=== PATIENT | male | born 1955 ===

== ENCOUNTER 2016-12-07 22:26 | Inpatient (IN) | payer OTHER ==
[2016-12-07] MEDS ORDERED: Labetalol 25mg/5ml Syringe ONE (22:42)
[2016-12-07] MEDS ORDERED: Albuterol-Ipratrop 3 mg / 0.5 (3 ml) UD INH STA (22:44)
--- NOTE | 2016-12-07 22:49 | C.PDOC ---
History Of Present Illness 61 year old male brought in by family presents to the ER with c/o SOB and that worsen over the 2 weeks. Pt notes 40 pounds in the last 2 months and is taking metFormin in the mornings only. Pt denies any nausea, vomiting, diarrhea, fever , chills, or any other complaints. Time Seen by Provider: 12/07/16 22:37 Chief Complaint (Nursing): Shortness Of Breath History Per: Patient History/Exam Limitations: no limitations Onset/Duration Of Symptoms: Days Current Symptoms Are (Timing): Still Present Severity: Mild Associated Symptoms: Other (Weight loss, 40 pounds). denies: Fever, Chills Past Medical History Reviewed: Historical Data, Nursing Documentation, Vital Signs Vital Signs: Last Vital Signs Temp 98.5 F 12/07/16 22:35 Pulse 130 H 12/07/16 22:35 Resp 40 H 12/07/16 23:05 BP 164/115 H 12/07/16 22:35 Pulse Ox 90 L 12/07/16 23:50 - Medical History PMH: HTN Family History: States: Unknown Family Hx - Social History Hx Alcohol Use: No Hx Substance Use: No - Immunization History Hx Tetanus Toxoid Vaccination: No Hx Influenza Vaccination: No Hx Pneumococcal Vaccination: No Review Of Systems Except As Marked, All Systems Reviewed And Found Negative. Constitutional: Positive for: Other (40# weight loss in 4 months). Negative for : Fever, Chills Respiratory: Positive for: Shortness of Breath Gastrointestinal: Negative for: Nausea, Vomiting, Diarrhea Physical Exam - Physical Exam Appears: Non-toxic, No Acute Distress Skin: Warm, Dry, Pale (pallid) Head: Atraumatic, Normacephalic Cardiovascular: JVD Respiratory: Decreased Breath Sounds (Bilaterally), No Rales, No Rhonchi, Wheezing (Upper lung area), Other (Mild SOB) Extremity: Other (2/4 pitting edema lower extremity) Neurological/Psych: Oriented x3, Normal Speech ED Course And Treatment - Laboratory Results Result Diagrams: 12/07/16 22:50 12/07/16 22:50 Lab Interpretation: Abnormal (+ Leukocytosis) ECG: Interpreted By Ar ECG Rhythm: Sinus Tachycardia ECG Interpretation: Abnormal Rate From EC O2 Sat by Pulse Oximetry: 90 Pulse Ox Interpretation: Abnormal - Radiology CXR: Interpreted by Me CXR Interpretation: Yes: Other (++CHF. + b/l effusions) Reevaluation Time: 23:45 Reassessment Condition: Improved - Physician Consult Information Outcome Of Conversation: 2330: d/w Hospitalist- Dr. Sethi- larissa to Tele Obs Critical Care Time - Critical Care Note Total Time (in mins): 90 Documented critical care: time excludes all time spent performing seperately billable procedures. Medical Decision Making Medical Decision Making: CHF and uncontrolled HTN/DM ? underlying PNA with Leukocytosis of 17K- pending abx per Hospitalists mild elev d-dimer pro related to infection and not PE- defer CTA/lovenox for more probable cause of SOB WAsting syndrome 40# weight loss in 6 months, ? related to poorly controlled DM or underlying CA Impression: 61 year old c/o SOB for 2 weeks Plan: -Labs -CXR -EKG -Albuterol -Lasix -IV Fluids -Trandate -Nebulizer treatment -Reassess and disposition Disposition Doctor Will See Patient In The: Hospital Counseled Patient/Family Regarding: Studies Performed, Diagnosis - Disposition Referrals: Non [facility] Provider, [Primary Care Provider] - Disposition: HOSPITALIZED Disposition Time: 23:46 Condition: FAIR - POA Present On Arrival: Poor Glycemic Control - Clinical Impression Clinical Impression: Chronic congestive heart failure, Diabetes - Scribe Statement The provider has reviewed the documentation as recorded by the Scribsatinder candelaria All medical record entries made by the Jbibsatinder were at my direction and personally dictated by me. I have reviewed the chart and agree that the record accurately reflects my personal performance of the history, physical exam, medical decision making, and the department course for this patient. I have also personally directed, reviewed, and agree with the discharge instructions and disposition.
[2016-12-07] MEDS ORDERED: Albuterol-Ipratrop 3 mg / 0.5 (3 ml) UD ONE (22:51)
[2016-12-07 22:59] LABS: BASO # 0.1 K/uL (0.0-0.2); BASO % 0.5 % (0.0-2.0); EOS % 0.1 % (0.0-4.0); HEMATOCRIT 44.9 % (35.0-51.0); LYMPH # 1.9 K/uL (1.0-4.3); LYMPH % 10.9 % (20.0-40.0); MEAN CELL VOLUME 89.3 fL (80.0-94.0); MEAN CORPUSCULAR HEMOGLOBIN 28.7 pg (27.0-31.0); MEAN CORPUSCULAR HGB CONC 32.1 g/dL (33.0-37.0); MEAN PLATELET VOLUME 10.5 fL (7.2-11.7); MONO # 1.2 K/uL (0.0-0.8); MONO % 6.8 % (0.0-10.0); WHITE BLOOD COUNT 17.1 K/uL (4.8-10.8)
[2016-12-07] MEDS ORDERED: (Novolin R) Insulin Human Regular 100 units/ml vial IV STA (23:05)
[2016-12-07 23:11] LABS: CHLORIDE 96 mmol/L (98-107)
[2016-12-07 23:12] LABS: POTASSIUM 3.5 mmol/L (3.6-5.2); SODIUM 134 mmol/L (132-148)
[2016-12-07 23:14] LABS: ALB/GLOB RATIO 1.1 (1.0-2.1); AST/SGOT 29 U/L (17-59); BILIRUBIN,TOTAL 1.1 mg/dL (0.2-1.3); CARBON DIOXIDE 20 mmol/L (22-30); GFR AFRICAN-AMERICAN > 60; TOTAL PROTEIN 6.9 g/dL (6.3-8.3)
[2016-12-07] MEDS ORDERED: (Novolin R) Insulin Human Regular 100 units/ml vial ONE (23:14)
[2016-12-07 23:15] LABS: ALKALINE PHOSPHATASE 78 U/L (38-126); ALT/SGPT 40 U/L (21-72); BLOOD UREA NITROGEN 17 mg/dL (9-20); CALCIUM 8.6 mg/dl (8.6-10.4); GLUCOSE,RANDOM 364 mg/dL (75-110)
[2016-12-07] MEDS ORDERED: cefTRIAXone IV 1 gm in Dextros 50 ML IV ONE (23:47)
[2016-12-07] MEDS ORDERED: Labetalol 25mg/5ml Syringe IV STA (23:48)
--- NOTE | 2016-12-08 00:09 | CP.PCM.HP ---
<Devin Huertas - Last Filed: 12/08/16 11:13> History of Present Illness - History of Present Illness History of Present Illness: CC: SOB + Cough x 2 weeks (worsening) HPI: 61 year old male with PMHx HTN, DM2, Diabetic coma 2005 - presents c/o SOB + productive Cough (white mucous) for the past 2 weeks. He admits to worsening SOB, especially while laying flat (feels like he's drowning) , requiring 2 pillows at night. Over the past 3 days, he reports associated LE swelling, stating that this never happened before. Patient states that prior to 2 weeks ago, his breathing was normal, and he could walk "for miles." He admits to increasing his fluid intact during this period due to increased thirst. Patient also reports an unintentional 40 pound weight loss in the last 2 months. Admits to weakness, diaphoresis x1 day, SOB, cough, nausea. Denies f/c, chest pain, palpitations, abdominal pain, d/c, urinary symptoms, hematochezia, hematemesis, sick contacts, or any additional complaints. Due to severity of condition, patient was transferred to the ICU. ED course: Solumedrol 125mg, Labetalol 20mg, Novolin R 10mg, Lasix 20, Duonebs, Ceftriaxone 1Gm IVPB. Patient reports feeling less SOB and less weak after diuresis. 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 PMD: unsure Present on Admission - Present on Admission Any Indicators Present on Admission: Yes History of Uncontrolled Diabetes: Yes Review of Systems - Constitutional Constitutional: Weakness. absent: Chills, Fever - EENT Eyes: absent: Blurred Vision, Change in Vision Ears: absent: Decreased Hearing, Ear Discharge, Ear Pain Nose/Mouth/Throat: absent: Nasal Congestion, Sore Throat - Cardiovascular Cardiovascular: Dyspnea, Edema, Leg Edema. absent: Chest Pain - Respiratory Respiratory: Cough, Dyspnea, Pain on Inspiration, Chest Congestion. absent: Hemoptysis - Gastrointestinal Gastrointestinal: Nausea. absent: Constipation, Diarrhea, Vomiting - Genitourinary Genitourinary: absent: Difficulty Urinating, Dysuria, Hematuria - Musculoskeletal Musculoskeletal: absent: Muscle Weakness, Numbness, Tingling - Integumentary Integumentary: absent: Alopecia, Bleeding Lesions, Change in Hair, Skin Pain - Neurological Neurological: Weakness. absent: Confusion, Dizziness, Numbness - Psychiatric Psychiatric: absent: Anhedonia, Anxiety, Depression - Endocrine Endocrine: absent: Change in Body Appearance, Fatigue, Palpitations - Hematologic/Lymphatic Hematologic: absent: Easy Bleeding, Easy Bruising Past Patient History - Infectious Disease Hx of Infectious Diseases: None - Past Social History Smoking Status: Former Smoker - CARDIAC Hx Hypertension: Yes - ENDOCRINE/METABOLIC Hx Diabetes Mellitus Type 2: Yes - PSYCHIATRIC Hx Substance Use: No - SURGICAL HISTORY Hx Surgeries: No - ANESTHESIA Hx Anesthesia: No Meds Allergies/Adverse Reactions: Allergies Allergy/AdvReac Type Severity Reaction Status Date / Time No Known Allergies Allergy Unverified 12/07/16 22:35 Physical Exam - Constitutional Appears: Non-toxic, No Acute Distress - Head Exam Head Exam: ATRAUMATIC, NORMAL INSPECTION - Eye Exam Eye Exam: EOMI, Normal appearance Pupil Exam: NORMAL ACCOMODATION - ENT Exam ENT Exam: Mucous Membranes Moist - Neck Exam Neck exam: Positive for: Normal Inspection. Negative for: Tenderness, Thyromegaly - Respiratory Exam Respiratory Exam: Decreased Breath Sounds, Rales, Respiratory Distress (when lying flat). absent: Wheezes - Cardiovascular Exam Cardiovascular Exam: Tachycardia, REGULAR RHYTHM, +S1, +S2. absent: JVD - GI/Abdominal Exam GI & Abdominal Exam: Normal Bowel Sounds, Soft. absent: Distended, Rebound, Tenderness Additional comments: +fluid on abdominal percussion - Extremities Exam Extremities exam: Positive for: pedal edema, pedal pulses present. Negative for : tenderness - Back Exam Back exam: NORMAL INSPECTION. absent: tenderness - Neurological Exam Neurological exam: Alert, CN II-XII Intact, Oriented x3 - Psychiatric Exam Psychiatric exam: Normal Affect, Normal Mood - Skin Skin Exam: Dry, Intact, Normal Color Results - Vital Signs Recent Vital Signs: Last Vital Signs Temp 98.5 F 12/07/16 22:35 Pulse 130 H 12/07/16 22:35 Resp 40 H 12/07/16 23:05 BP 164/115 H 12/07/16 22:35 Pulse Ox 90 L 12/07/16 23:50 - Labs Result Diagrams: 12/07/16 22:50 12/07/16 22:50 Labs: Laboratory Results - last 24 hr 12/07/16 12/07/16 12/07/16 22:50 22:55 23:00 WBC 17.1 H RBC 5.02 Hgb 14.4 Hct 44.9 MCV 89.3 MCH 28.7 MCHC 32.1 L RDW 14.0 Plt Count 296 MPV 10.5 Neut % (Auto) 81.7 H Lymph % (Auto) 10.9 L Montgomery % (Auto) 6.8 Eos % (Auto) 0.1 Baso % (Auto) 0.5 Neut # 14.0 H Lymph # 1.9 Montgomery # 1.2 H Eos # 0.0 Baso # 0.1 D-Dimer, Quantitative 415 H Sodium 134 Potassium 3.5 L Chloride 96 L Carbon Dioxide 20 L Anion Gap 22 H BUN 17 Creatinine 0.7 L Est GFR ( Amer) > 60 Est GFR (Non-Af Amer) > 60 POC Glucose (mg/dL) 430 H* Random Glucose 364 H Calcium 8.6 Total Bilirubin 1.1 AST 29 ALT 40 Alkaline Phosphatase 78 Troponin I 0.0730 NT-Pro-B Natriuret Pep 6650 H Total Protein 6.9 Albumin 3.6 Globulin 3.3 Albumin/Globulin Ratio 1.1 Influenza Typ A,B (EIA) Negative for flu a/b Assessment & Plan - Assessment and Plan (Free Text) Assessment: Respiratory failure/CHF/HTN - left sided CHF leading to R sided heart failure - Lasix 40mg IVP d Lisinopril 5mg PO d Lopressor 25mg PO BID f/u Cardiac enzymes f/u ECHO Pulmonary Congestion -due to Left sided heart failure. - Lasix 40mg IVP d - f/u CT angio chest/abd/pelv Lower extremity Edema -likely due to right sided heart failure Diabetes, uncontrolled A1C 10.1 ISS - Novolog ACHS accuchecks Leucocytosis -no fever f/u with rpt CBC in ED - Ceftriaxone 1Gm -f/u procalcitonin Electrolyte Imbalance -Hypokalemia, K3.5 -> monitor and replete as necessary Prophylaxis Hep 5k SC Q8 ASA 81mg PO d Pepcid 20mg PO d SCDs contraindicated - Date & Time Date: 12/08/16 Time: 00:15 <Pollo Sethi P - Last Filed: 12/19/16 20:17> Results - Vital Signs Recent Vital Signs: Last Vital Signs Temp 97.7 F 12/13/16 15:33 Pulse 83 12/13/16 15:33 Resp 20 12/13/16 15:33 BP 92/65 L 12/13/16 15:33 Pulse Ox 97 12/13/16 15:33 - Labs Result Diagrams: 12/13/16 08:02 12/13/16 08:02 Attending/Attestation - Attestation I have personally seen and examined this patient.: Yes I have fully participated in the care of the patient.: Yes I have reviewed all pertinent clinical information: Yes
[2016-12-08 00:37] LABS: RBC URINE 1 /hpf (0-3); URINE BILIRUBIN NEGATIVE (NEGATIVE); URINE BLOOD NEGATIVE (NEGATIVE); URINE COLOR Yellow (YELLOW); URINE GLUCOSE (UA) 3+ mg/dL (Normal); URINE KETONE TRACE mg/dL (NEGATIVE); URINE LEUKOCYTE ESTERASE NEG Leu/uL (Negative); URINE PROTEIN 2+ mg/dL (NEGATIVE); URINE UROBILINOGEN NORMAL mg/dL (0.2-1.0); WBC URINE 2 /hpf (0-5)
[2016-12-08] MEDS ORDERED: cefTRIAXone IV 1 gm in Dextros 50 ML IVPB ONE (00:47)
[2016-12-08 02:16] LABS: INR 1.5
[2016-12-08 02:29] LABS: THYROID STIMULATING HORMONE 1.87 mIU/L (0.46-4.68)
[2016-12-08] MEDS ORDERED: Iodixanol 320 MG/ML 100 ML BOTTLE IV ONE (02:39)
[2016-12-08 03:09] LABS: IRON 40 ug/dL (49-181)
[2016-12-08] MEDS ORDERED: Potassium Chloride 20 mEq ER Tab PO ONE (03:45)
[2016-12-08] MEDS ORDERED: Potassium Chloride 20 mEq ER Tab PO STA (03:46)
--- NOTE | 2016-12-08 04:24 | CP.PCM.CON ---
History of Present Illness - History of Present Illness History of Present Illness: 61 year old male withh/o HTN,DM (diabetic coma 2006) brought in by family presents to the ER with c/o SOB worsening over the past 2 weeks. Pt notes 40 pounds weight loss in the last 2 months Pt denies any chest ppain,nausea, vomiting, diarrhea, fever, chills.Noted leg swelling x 3 days. Worsening SOB, especially while laying flat , requiring 2 pillows at night. Patient states that prior to 2 weeks ago, his breathing was normal, and he could walk "for miles." ED course: Solumedrol 125mg, Labetalol 20mg, Novolin R 10mg, Lasix 20, Duonebs, Ceftriaxone 1Gm IVPB. Patient reports feeling less SOB and less weak after diuresis H/O DM and HTN not seen a physician for more than 5 yrs.Has been using mother in laws medication.according to the glucose in the 120's when checked at home Review of Systems - Review of Systems Systems not reviewed;Unavailable: Unstable Vital Signs, Respiratory Distress, Language Barrier - Constitutional Constitutional: Weight Loss. absent: Anorexia, Chills, Fever, Malaise, Night Sweats - EENT Eyes: absent: Change in Vision Ears: absent: Ear Pain, Dizziness Nose/Mouth/Throat: absent: Nasal Congestion - Cardiovascular Cardiovascular: Dyspnea on Exertion, Edema, Leg Edema, Paroxysmal Nocturnal Dyspnea. absent: Chest Pain, Chest Pain at Rest, Chest Pain with Activity - Respiratory Respiratory: Cough, Dyspnea, Excessive Mucous Production - Gastrointestinal Gastrointestinal: absent: Abdominal Pain, Change in Bowel Habits, Nausea, Vomiting - Genitourinary Genitourinary: Urinary Frequency - Neurological Neurological: absent: Abnormal Gait, Dizziness - Endocrine Endocrine: absent: Cold Intolorance, Heat Intolorance - Hematologic/Lymphatic Hematologic: absent: Easy Bleeding Past Patient History - Infectious Disease Hx of Infectious Diseases: None - Past Medical History & Family History Past Medical History?: Yes - Past Social History Smoking Status: Former Smoker Chewing Tobacco Use: No Cigar Use: No Occupation: maintenance work Alcohol: None Drugs: Denies Home Situation {Lives}: With Family - CARDIAC Hx Cardiac Disorders: Yes Hx Hypertension: Yes - PULMONARY Hx Respiratory Disorders: No - NEUROLOGICAL Hx Neurological Disorder: No - HEENT Hx HEENT Problems: Yes Other/Comment: glasses for reading - RENAL Hx Chronic Kidney Disease: No - ENDOCRINE/METABOLIC Hx Endocrine Disorders: Yes Hx Diabetes Mellitus Type 2: Yes - HEMATOLOGICAL/ONCOLOGICAL Hx Blood Disorders: No - INTEGUMENTARY Hx Dermatological Problems: No - MUSCULOSKELETAL/RHEUMATOLOGICAL Hx Musculoskeletal Disorders: No Hx Falls: No - GASTROINTESTINAL Hx Gastrointestinal Disorders: No - GENITOURINARY/GYNECOLOGICAL Hx Genitourinary Disorders: No - PSYCHIATRIC Hx Psychophysiologic Disorder: No - SURGICAL HISTORY Hx Surgeries: No - ANESTHESIA Hx Anesthesia: No Hx Anesthesia Reactions: No Hx Malignant Hyperthermia: No Has any member of the family had a problem w/ anesthesia?: No Meds Allergies/Adverse Reactions: Allergies Allergy/AdvReac Type Severity Reaction Status Date / Time No Known Allergies Allergy Unverified 12/07/16 22:35 - Medications Medications: Current Medications Aspirin (Aspirin Chewable) 81 mg PO DAILY [facility] Famotidine (Pepcid) 20 mg PO DAILY [facility] Furosemide (Lasix) 40 mg IVP DAILY [facility]1983 Heparin Sodium (Porcine) (Heparin) 5,000 units SC Q8 [facility], [facility]1983 Last Admin: 12/08/16 02:50 Dose: 5,000 units Insulin Aspart (Novolog) 0 unit SC ACHS [facility], [facility]1983 PRN Reason: Protocol Lisinopril (Zestril) 5 mg PO DAILY [facility] Metoprolol Tartrate (Lopressor) 25 mg PO BID [facility]1983 Physical Exam - Constitutional Appears: In Acute Distress, Chronically Ill - Head Exam Head Exam: ATRAUMATIC, NORMAL INSPECTION, NORMOCEPHALIC - Eye Exam Eye Exam: EOMI, Normal appearance, PERRL. absent: Conjunctival injection, Periorbital swelling Pupil Exam: NORMAL ACCOMODATION - ENT Exam ENT Exam: Mucous Membranes Moist, Normal Exam - Neck Exam Neck exam: Positive for: Full Rom, Normal Inspection. Negative for: Lymphadenopathy - Respiratory Exam Respiratory Exam: Accessory Muscle Use. absent: Rales Additional comments: decreased air entry both bases - Cardiovascular Exam Cardiovascular Exam: REGULAR RHYTHM. absent: JVD - GI/Abdominal Exam GI & Abdominal Exam: Normal Bowel Sounds, Soft. absent: Tenderness - Rectal Exam Rectal Exam: absent: Deferred - Extremities Exam Extremities exam: Positive for: pedal edema - Back Exam Back exam: NORMAL INSPECTION - Neurological Exam Neurological exam: Oriented x3 - Psychiatric Exam Psychiatric exam: Normal Affect - Skin Skin Exam: Normal Color Results - Vital Signs Recent Vital Signs: Last Vital Signs Temp 98.1 F 12/08/16 03:12 Pulse 111 H 03/25/17 03:14 Resp 35 H 12/08/16 03:14 BP 128/75 12/08/16 03:14 Pulse Ox 96 12/08/16 03:14 - Labs Result Diagrams: 12/07/16 22:50 12/07/16 22:50 Labs: Laboratory Results - last 24 hr 12/08/16 12/08/16 12/08/16 00:27 01:08 01:37 PT INR APTT POC Glucose (mg/dL) 181 H Hemoglobin A1c Iron 40 L TIBC 238 L % Saturation 17 L Vitamin B12 Free T4 TSH 3rd Generation Urine Color Yellow Urine Clarity Clear Urine pH 5.0 Ur Specific Prentice 1.012 Urine Protein 2+ H Urine Glucose (UA) 3+ H Urine Ketones Trace Urine Blood Negative Urine Nitrate Negative Urine Bilirubin Negative Urine Urobilinogen Normal Ur Leukocyte Esterase Neg Urine WBC (Auto) 2 Urine RBC (Auto) 1 Ur Squamous Epith Cells < 1 Urine Opiates Screen Negative Urine Methadone Screen Negative Ur Barbiturates Screen Negative Ur Phencyclidine Scrn Negative Ur Amphetamines Screen Negative U Benzodiazepines Scrn Negative U Oth Cocaine Metabols Negative U Cannabinoids Screen Negative 12/08/16 12/08/16 12/08/16 01:42 01:43 02:03 PT 16.7 H INR 1.5 APTT 34 POC Glucose (mg/dL) Hemoglobin A1c 10.1 H Iron TIBC % Saturation Vitamin B12 > 1000 H Free T4 TSH 3rd Generation 1.87 Urine Color Urine Clarity Urine pH Ur Specific Prentice Urine Protein Urine Glucose (UA) Urine Ketones Urine Blood Urine Nitrate Urine Bilirubin Urine Urobilinogen Ur Leukocyte Esterase Urine WBC (Auto) Urine RBC (Auto) Ur Squamous Epith Cells Urine Opiates Screen Urine Methadone Screen Ur Barbiturates Screen Ur Phencyclidine Scrn Ur Amphetamines Screen U Benzodiazepines Scrn U Oth Cocaine Metabols U Cannabinoids Screen 12/08/16 03:00 PT INR APTT POC Glucose (mg/dL) Hemoglobin A1c Iron TIBC % Saturation Vitamin B12 Free T4 1.57 TSH 3rd Generation Urine Color Urine Clarity Urine pH Ur Specific Prentice Urine Protein Urine Glucose (UA) Urine Ketones Urine Blood Urine Nitrate Urine Bilirubin Urine Urobilinogen Ur Leukocyte Esterase Urine WBC (Auto) Urine RBC (Auto) Ur Squamous Epith Cells Urine Opiates Screen Urine Methadone Screen Ur Barbiturates Screen Ur Phencyclidine Scrn Ur Amphetamines Screen U Benzodiazepines Scrn U Oth Cocaine Metabols U Cannabinoids Screen - EKG Data EKG Interpreted by: Myself Rate: Tachycardia (LAD,Q waves in anterolateral leads) - Imaging and Cardiology Chest x-ray Status: Image reviewed by me Assessment & Plan - Assessment and Plan (Free Text) Assessment: 1.Respiratory failure/CHF/HTN ELIZABETH inhibitors,diuretics,Beta blockers Cardiac enzymes ECHO 2.Uncontrolled DM-insulin coverage 3.leucocytosis-no fever f/u with rpt CBC received 1 dose of antibiotic in ER 4.Hypokalemia-potassium replaced
[2016-12-08 05:30] LABS: ABG ALLEN TEST POS; ARTERIAL BLOOD HGB O2 SAT 96.5 % (95.0-98.0); CARBOXYHEMOGLOBIN 1.8 % (0.5-1.5); DRAW SITE RR; HHB 0.7 % (0.0-5.0)
[2016-12-08] MEDS ORDERED: (Novolog) Insulin Aspart, Recombinant 100 u/ml 10 ml vial SC SCH ×2 (07:30→22:00)
--- NOTE | 2016-12-08 10:19 | CT ---
PROCEDURE: CT Angiography Chest, Abdomen and Pelvis with and without intravenous contrast HISTORY: anasarca, weight loss, sob COMPARISON: None. TECHNIQUE: Contiguous axial images of the chest, abdomen and pelvis were obtained in the phase of aortic enhancement. A noncontrast enhanced CT of the chest was also obtained to evaluate for possible intramural thrombus. Coronal and sagittal reformats were generated. IV dose administered: 100 mL Visipaque 320 Radiation dose: Total exam DLP = 698.95 mGy-cm. FINDINGS: CT ANGIOGRAPHY OF THE CHEST WITH & WITHOUT CONTRAST: AORTA (CHEST AND ABDOMEN): The thoracic and abdominal aorta are unremarkable, without aneurysm, dissection or rupture. No intramural thrombus identified in the thoracic aorta on the non-contrast ct of the chest. The celiac axis, superior mesenteric artery, inferior mesenteric artery and the renal arteries are widely patent. The pelvic arteries are unremarkable. LUNGS: Patchy alveolar opacities throughout both lungs common nonspecific. Mild bilateral lower lobe compressive atelectasis secondary to pleural effusions. MEDIASTINUM: Unremarkable. Normal caliber aorta and pulmonary arterial trunk. No aortic dissection. Cardiomegaly. No pericardial effusion. LYMPH NODES: Unremarkable. PLEURA: Moderate bilateral pleural effusion. BONES: Unremarkable. OTHER FINDINGS: None. CT ANGIOGRAPHY OF THE ABDOMEN AND PELVIS WITH CONTRAST: LIVER: Unremarkable. No gross lesion or ductal dilatation. GALLBLADDER AND BILE DUCTS: Unremarkable. PANCREAS: Unremarkable. No gross lesion or ductal dilatation. SPLEEN: Unremarkable. ADRENALS: Unremarkable. No mass. KIDNEYS AND URETERS: Unremarkable. No hydronephrosis. No solid mass. VASCULATURE: Unremarkable. No aortic aneurysm. STOMACH AND BOWEL: Sigmoid diverticulosis without evidence of diverticulitis. No bowel obstruction. APPENDIX: Normal appendix. PERITONEUM: Unremarkable. No free fluid. No free air. LYMPH NODES: Unremarkable. No enlarged lymph nodes. BLADDER: Unremarkable. REPRODUCTIVE: Normal prostate BONES: No acute fracture. OTHER FINDINGS: None. IMPRESSION: No evidence of thoracic or abdominal aortic aneurysm or dissection. Please note that there is no gross evidence of pulmonary embolism all the examination was not performed in a proper fashion [place] for evaluation of pulmonary embolism. Bilateral patchy alveolar opacities with moderate bilateral pleural effusion. Nonspecific but may reflect pulmonary edema. Cardiomegaly. Bilateral lower lobe compressive atelectasis. Preliminary interpretation of this examination was reported by Lalalama at 3:22 a.m. on 12/08/2016. There is concurrence of this report with the preliminary interpretation.
[2016-12-08] MEDS: (Novolog) Insulin Aspart, Recombinant 100 u/ml 10 ml vial SC SCH ×5 (12:43→22:00)
[2016-12-08 13:33] LABS: CHLORIDE 95 mmol/L (98-107); POTASSIUM 4.8 mmol/L (3.6-5.2); SODIUM 132 mmol/L (132-148)
[2016-12-08 13:35] LABS: BILIRUBIN,TOTAL 0.8 mg/dL (0.2-1.3); CARBON DIOXIDE 20 mmol/L (22-30); GFR AFRICAN-AMERICAN > 60
[2016-12-08 13:36] LABS: ALKALINE PHOSPHATASE 69 U/L (38-126); ALT/SGPT 50 U/L (21-72); AST/SGOT 44 U/L (17-59); BLOOD UREA NITROGEN 24 mg/dL (9-20); CALCIUM 8.6 mg/dl (8.6-10.4); MAGNESIUM 1.5 mg/dL (1.6-2.3); PHOSPHOROUS 5.2 mg/dL (2.5-4.5); TOTAL PROTEIN 6.5 g/dL (6.3-8.3)
[2016-12-08 13:38] LABS: GLUCOSE,RANDOM 487 mg/dL (75-110)
[2016-12-08] MEDS ORDERED: Insulin Human Regular 100 UNIT in Sodium Chloride 0.9% 99 ML IV SCH (13:45)
--- NOTE | 2016-12-08 14:25 | CP.CCUPN ---
CCU Subjective - Physician Review Events Since Last Encounter (Free Text): 12/08/16 14:23 clinically improved today, breathing normally, no complaints. CCU Objective - Vital Signs / Intake & Output Vital Signs (Last 4 hours): Vital Signs Pulse Resp BP Pulse Ox 12/08/16 14:14 103 H 31 H 117/91 H 98 12/08/16 14:00 102 H 32 H 99 12/08/16 13:13 99 H 37 H 116/83 96 12/08/16 13:02 100 H 37 H 122/84 96 12/08/16 13:00 102 H 35 H 97 12/08/16 12:13 104 H 41 H 122/84 97 12/08/16 12:00 104 H 34 H 98 12/08/16 11:13 127/92 H 12/08/16 11:09 107 H 30 H 98 12/08/16 11:00 112 H 31 H 99 Intake and Output (Last 8hrs): Intake & Output 12/07/16 12/08/16 12/08/16 22:59 06:59 14:59 Intake Total 0 650 Output Total 200 800 Balance -200 -150 Weight 137 lb Intake: Oral 0 650 Output: Urine 200 800 Urine, Voided 200 800 - Physical Exam Head: Positive for: Atraumatic, Normocephalic Pupils: Positive for: PERRL Extroacular Muscles: Positive for: EOMI Mouth: Positive for: Moist Mucous Membranes Nose (External): Positive for: Atraumatic Respiratory/Chest: Positive for: Rales - Medications Active Medications: Active Medications Generic Name Dose Route Start Last Admin Trade Name Freq PRN Reason Stop Dose Admin Aspirin 81 mg 12/08/16 10:00 12/08/16 09:41 Aspirin Chewable PO 81 mg DAILY DARLIN Administration Docusate Sodium 100 mg 12/08/16 11:15 12/08/16 12:41 Colace PO 100 mg BID DARLIN Administration Famotidine 20 mg 12/08/16 10:00 12/08/16 09:41 Pepcid PO 20 mg DAILY DARLIN Administration Furosemide 40 mg 12/08/16 22:00 Lasix IVP Q12 DARLIN Heparin Sodium (Porcine) 5,000 units 12/08/16 01:45 12/08/16 06:43 Heparin SC 5,000 units Q8 DARLIN Administration Insulin Human Regular 100 unit 100 mls @ 2 mls/hr 12/08/16 13:45 12/08/16 14:16 / Sodium Chloride IV 2 mls/hr .Q24H DARLIN Administration Protocol Insulin Aspart 0 unit 12/08/16 10:53 12/08/16 12:43 Novolog SC 12 unit ACHS DARLIN Administration Protocol Lisinopril 5 mg 12/08/16 10:00 12/08/16 09:48 Zestril PO 5 mg DAILY DARLIN Administration Metoprolol Tartrate 25 mg 12/08/16 10:00 12/08/16 09:39 Lopressor PO 25 mg BID DARLIN Administration - Patient Studies Lab Studies: Lab Studies 12/08/16 12/08/16 12/08/16 Range/Units 13:21 13:17 11:50 PT (9.7-12.2) SECONDS INR APTT (21-34) SECONDS Puncture Site pCO2 (35-45) mm/Hg pO2 (80-100) mm/Hg HCO3 (21-28) mmol/L ABG pH (7.35-7.45) ABG Total CO2 (22-28) mmol/L ABG O2 Saturation (95-98) % ABG Base Excess (-2.0-3.0) mmol/L ABG Hemoglobin (11.7-17.4) g/dL ABG Carboxyhemoglobin (0.5-1.5) % POC ABG HHb (Measured) (0.0-5.0) % ABG Methemoglobin (0.0-3.0) % Eevrt Test A-a O2 Difference mm/Hg Respiratory Index Hgb O2 Saturation (95.0-98.0) % FiO2 % Inspiratory BiPAP Expiratory BiPAP Sodium 132 (132-148) mmol/L Potassium 4.8 (3.6-5.2) mmol/L Chloride 95 L (98-107) mmol/L Carbon Dioxide 20 L (22-30) mmol/L Anion Gap 22 H (10-20) BUN 24 H (9-20) mg/dL Creatinine 0.8 (0.8-1.5) MG/DL Est GFR ( Amer) > 60 Est GFR (Non-Af Amer) > 60 POC Glucose (mg/dL) 416 H* 437 H* (65-110) mg/dL Random Glucose 487 H* D (75-110) mg/dL Hemoglobin A1c (4.2-6.5) % Calcium 8.6 (8.6-10.4) mg/dl Phosphorus 5.2 H (2.5-4.5) mg/dL Magnesium 1.5 L (1.6-2.3) mg/dL Iron (49-181) ug/dL TIBC (250-450) ug/dL % Saturation (20-55) Total Bilirubin 0.8 (0.2-1.3) mg/dL AST 44 (17-59) U/L ALT 50 (21-72) U/L Alkaline Phosphatase 69 (38-126) U/L Troponin I (0.00-0.120) ng/mL Total Protein 6.5 (6.3-8.3) g/dL Albumin 3.3 L (3.5-5.0) g/dL Globulin 3.2 (2.2-3.9) gm/dL Albumin/Globulin Ratio 1.0 (1.0-2.1) Vitamin B12 (239-931) pg/mL Free T4 (0.78-2.19) ng/dL TSH 3rd Generation (0.46-4.68) mIU/L Urine Color (YELLOW) Urine Clarity (Clear) Urine pH (5.0-8.0) Ur Specific [place] (1.003-1.030) Urine Protein (NEGATIVE) mg/dL Urine Glucose (UA) (Normal) mg/dL Urine Ketones (NEGATIVE) mg/dL Urine Blood (NEGATIVE) Urine Nitrate (NEGATIVE) Urine Bilirubin (NEGATIVE) Urine Urobilinogen (0.2-1.0) mg/dL Ur Leukocyte Esterase (Negative) Agustin/uL Urine WBC (Auto) (0-5) /hpf Urine RBC (Auto) (0-3) /hpf Ur Squamous Epith Cells (0-5) /hpf Urine Opiates Screen (NEGATIVE) Urine Methadone Screen (NEGATIVE) Ur Barbiturates Screen (NEGATIVE) Ur Phencyclidine Scrn (NEGATIVE) Ur Amphetamines Screen (NEGATIVE) U Benzodiazepines Scrn (NEGATIVE) U Oth Cocaine Metabols (NEGATIVE) U Cannabinoids Screen (NEGATIVE) 12/08/16 12/08/16 12/08/16 Range/Units 07:21 06:15 05:27 PT (9.7-12.2) SECONDS INR APTT (21-34) SECONDS Puncture Site Rr pCO2 31 L (35-45) mm/Hg pO2 122 H (80-100) mm/Hg HCO3 21.8 (21-28) mmol/L ABG pH 7.41 (7.35-7.45) ABG Total CO2 20.6 L (22-28) mmol/L ABG O2 Saturation 99.3 H (95-98) % ABG Base Excess -4.0 L (-2.0-3.0) mmol/L ABG Hemoglobin 13.5 (11.7-17.4) g/dL ABG Carboxyhemoglobin 1.8 H (0.5-1.5) % POC ABG HHb (Measured) 0.7 (0.0-5.0) % ABG Methemoglobin 1.0 (0.0-3.0) % Evert Test Pos A-a O2 Difference 124.0 mm/Hg Respiratory Index 1.0 Hgb O2 Saturation 96.5 (95.0-98.0) % FiO2 40.0 % Inspiratory BiPAP 12 Expiratory BiPAP 6 Sodium (132-148) mmol/L Potassium (3.6-5.2) mmol/L Chloride (98-107) mmol/L Carbon Dioxide (22-30) mmol/L Anion Gap (10-20) BUN (9-20) mg/dL Creatinine (0.8-1.5) MG/DL Est GFR ( Amer) Est GFR (Non-Af Amer) POC Glucose (mg/dL) 306 H (65-110) mg/dL Random Glucose (75-110) mg/dL Hemoglobin A1c (4.2-6.5) % Calcium (8.6-10.4) mg/dl Phosphorus (2.5-4.5) mg/dL Magnesium (1.6-2.3) mg/dL Iron (49-181) ug/dL TIBC (250-450) ug/dL % Saturation (20-55) Total Bilirubin (0.2-1.3) mg/dL AST (17-59) U/L ALT (21-72) U/L Alkaline Phosphatase (38-126) U/L Troponin I 0.0670 (0.00-0.120) ng/mL Total Protein (6.3-8.3) g/dL Albumin (3.5-5.0) g/dL Globulin (2.2-3.9) gm/dL Albumin/Globulin Ratio (1.0-2.1) Vitamin B12 (239-931) pg/mL Free T4 (0.78-2.19) ng/dL TSH 3rd Generation (0.46-4.68) mIU/L Urine Color (YELLOW) Urine Clarity (Clear) Urine pH (5.0-8.0) Ur Specific [place] (1.003-1.030) Urine Protein (NEGATIVE) mg/dL Urine Glucose (UA) (Normal) mg/dL Urine Ketones (NEGATIVE) mg/dL Urine Blood (NEGATIVE) Urine Nitrate (NEGATIVE) Urine Bilirubin (NEGATIVE) Urine Urobilinogen (0.2-1.0) mg/dL Ur Leukocyte Esterase (Negative) Agustin/uL Urine WBC (Auto) (0-5) /hpf Urine RBC (Auto) (0-3) /hpf Ur Squamous Epith Cells (0-5) /hpf Urine Opiates Screen (NEGATIVE) Urine Methadone Screen (NEGATIVE) Ur Barbiturates Screen (NEGATIVE) Ur Phencyclidine Scrn (NEGATIVE) Ur Amphetamines Screen (NEGATIVE) U Benzodiazepines Scrn (NEGATIVE) U Oth Cocaine Metabols (NEGATIVE) U Cannabinoids Screen (NEGATIVE) 12/08/16 12/08/16 12/08/16 Range/Units 03:00 02:03 01:43 PT 16.7 H (9.7-12.2) SECONDS INR 1.5 APTT 34 (21-34) SECONDS Puncture Site pCO2 (35-45) mm/Hg pO2 (80-100) mm/Hg HCO3 (21-28) mmol/L ABG pH (7.35-7.45) ABG Total CO2 (22-28) mmol/L ABG O2 Saturation (95-98) % ABG Base Excess (-2.0-3.0) mmol/L ABG Hemoglobin (11.7-17.4) g/dL ABG Carboxyhemoglobin (0.5-1.5) % POC ABG HHb (Measured) (0.0-5.0) % ABG Methemoglobin (0.0-3.0) % Evert Test A-a O2 Difference mm/Hg Respiratory Index Hgb O2 Saturation (95.0-98.0) % FiO2 % Inspiratory BiPAP Expiratory BiPAP Sodium (132-148) mmol/L Potassium (3.6-5.2) mmol/L Chloride (98-107) mmol/L Carbon Dioxide (22-30) mmol/L Anion Gap (10-20) BUN (9-20) mg/dL Creatinine (0.8-1.5) MG/DL Est GFR ( Amer) Est GFR (Non-Af Amer) POC Glucose (mg/dL) (65-110) mg/dL Random Glucose (75-110) mg/dL Hemoglobin A1c (4.2-6.5) % Calcium (8.6-10.4) mg/dl Phosphorus (2.5-4.5) mg/dL Magnesium (1.6-2.3) mg/dL Iron (49-181) ug/dL TIBC (250-450) ug/dL % Saturation (20-55) Total Bilirubin (0.2-1.3) mg/dL AST (17-59) U/L ALT (21-72) U/L Alkaline Phosphatase (38-126) U/L Troponin I (0.00-0.120) ng/mL Total Protein (6.3-8.3) g/dL Albumin (3.5-5.0) g/dL Globulin (2.2-3.9) gm/dL Albumin/Globulin Ratio (1.0-2.1) Vitamin B12 > 1000 H (239-931) pg/mL Free T4 1.57 (0.78-2.19) ng/dL TSH 3rd Generation 1.87 (0.46-4.68) mIU/L Urine Color (YELLOW) Urine Clarity (Clear) Urine pH (5.0-8.0) Ur Specific [place] (1.003-1.030) Urine Protein (NEGATIVE) mg/dL Urine Glucose (UA) (Normal) mg/dL Urine Ketones (NEGATIVE) mg/dL Urine Blood (NEGATIVE) Urine Nitrate (NEGATIVE) Urine Bilirubin (NEGATIVE) Urine Urobilinogen (0.2-1.0) mg/dL Ur Leukocyte Esterase (Negative) Agustin/uL Urine WBC (Auto) (0-5) /hpf Urine RBC (Auto) (0-3) /hpf Ur Squamous Epith Cells (0-5) /hpf Urine Opiates Screen (NEGATIVE) Urine Methadone Screen (NEGATIVE) Ur Barbiturates Screen (NEGATIVE) Ur Phencyclidine Scrn (NEGATIVE) Ur Amphetamines Screen (NEGATIVE) U Benzodiazepines Scrn (NEGATIVE) U Oth Cocaine Metabols (NEGATIVE) U Cannabinoids Screen (NEGATIVE) 12/08/16 12/08/16 12/08/16 Range/Units 01:42 01:37 01:08 PT (9.7-12.2) SECONDS INR APTT (21-34) SECONDS Puncture Site pCO2 (35-45) mm/Hg pO2 (80-100) mm/Hg HCO3 (21-28) mmol/L ABG pH (7.35-7.45) ABG Total CO2 (22-28) mmol/L ABG O2 Saturation (95-98) % ABG Base Excess (-2.0-3.0) mmol/L ABG Hemoglobin (11.7-17.4) g/dL ABG Carboxyhemoglobin (0.5-1.5) % POC ABG HHb (Measured) (0.0-5.0) % ABG Methemoglobin (0.0-3.0) % Evert Test A-a O2 Difference mm/Hg Respiratory Index Hgb O2 Saturation (95.0-98.0) % FiO2 % Inspiratory BiPAP Expiratory BiPAP Sodium (132-148) mmol/L Potassium (3.6-5.2) mmol/L Chloride (98-107) mmol/L Carbon Dioxide (22-30) mmol/L Anion Gap (10-20) BUN (9-20) mg/dL Creatinine (0.8-1.5) MG/DL Est GFR ( Amer) Est GFR (Non-Af Amer) POC Glucose (mg/dL) 181 H (65-110) mg/dL Random Glucose (75-110) mg/dL Hemoglobin A1c 10.1 H (4.2-6.5) % Calcium (8.6-10.4) mg/dl Phosphorus (2.5-4.5) mg/dL Magnesium (1.6-2.3) mg/dL Iron 40 L (49-181) ug/dL TIBC 238 L (250-450) ug/dL % Saturation 17 L (20-55) Total Bilirubin (0.2-1.3) mg/dL AST (17-59) U/L ALT (21-72) U/L Alkaline Phosphatase (38-126) U/L Troponin I (0.00-0.120) ng/mL Total Protein (6.3-8.3) g/dL Albumin (3.5-5.0) g/dL Globulin (2.2-3.9) gm/dL Albumin/Globulin Ratio (1.0-2.1) Vitamin B12 (239-931) pg/mL Free T4 (0.78-2.19) ng/dL TSH 3rd Generation (0.46-4.68) mIU/L Urine Color (YELLOW) Urine Clarity (Clear) Urine pH (5.0-8.0) Ur Specific [place] (1.003-1.030) Urine Protein (NEGATIVE) mg/dL Urine Glucose (UA) (Normal) mg/dL Urine Ketones (NEGATIVE) mg/dL Urine Blood (NEGATIVE) Urine Nitrate (NEGATIVE) Urine Bilirubin (NEGATIVE) Urine Urobilinogen (0.2-1.0) mg/dL Ur Leukocyte Esterase (Negative) Agustin/uL Urine WBC (Auto) (0-5) /hpf Urine RBC (Auto) (0-3) /hpf Ur Squamous Epith Cells (0-5) /hpf Urine Opiates Screen (NEGATIVE) Urine Methadone Screen (NEGATIVE) Ur Barbiturates Screen (NEGATIVE) Ur Phencyclidine Scrn (NEGATIVE) Ur Amphetamines Screen (NEGATIVE) U Benzodiazepines Scrn (NEGATIVE) U Oth Cocaine Metabols (NEGATIVE) U Cannabinoids Screen (NEGATIVE) 12/08/16 Range/Units 00:27 PT (9.7-12.2) SECONDS INR APTT (21-34) SECONDS Puncture Site pCO2 (35-45) mm/Hg pO2 (80-100) mm/Hg HCO3 (21-28) mmol/L ABG pH (7.35-7.45) ABG Total CO2 (22-28) mmol/L ABG O2 Saturation (95-98) % ABG Base Excess (-2.0-3.0) mmol/L ABG Hemoglobin (11.7-17.4) g/dL ABG Carboxyhemoglobin (0.5-1.5) % POC ABG HHb (Measured) (0.0-5.0) % ABG Methemoglobin (0.0-3.0) % Evert Test A-a O2 Difference mm/Hg Respiratory Index Hgb O2 Saturation (95.0-98.0) % FiO2 % Inspiratory BiPAP Expiratory BiPAP Sodium (132-148) mmol/L Potassium (3.6-5.2) mmol/L Chloride (98-107) mmol/L Carbon Dioxide (22-30) mmol/L Anion Gap (10-20) BUN (9-20) mg/dL Creatinine (0.8-1.5) MG/DL Est GFR ( Amer) Est GFR (Non-Af Amer) POC Glucose (mg/dL) (65-110) mg/dL Random Glucose (75-110) mg/dL Hemoglobin A1c (4.2-6.5) % Calcium (8.6-10.4) mg/dl Phosphorus (2.5-4.5) mg/dL Magnesium (1.6-2.3) mg/dL Iron (49-181) ug/dL TIBC (250-450) ug/dL % Saturation (20-55) Total Bilirubin (0.2-1.3) mg/dL AST (17-59) U/L ALT (21-72) U/L Alkaline Phosphatase (38-126) U/L Troponin I (0.00-0.120) ng/mL Total Protein (6.3-8.3) g/dL Albumin (3.5-5.0) g/dL Globulin (2.2-3.9) gm/dL Albumin/Globulin Ratio (1.0-2.1) Vitamin B12 (239-931) pg/mL Free T4 (0.78-2.19) ng/dL TSH 3rd Generation (0.46-4.68) mIU/L Urine Color Yellow (YELLOW) Urine Clarity Clear (Clear) Urine pH 5.0 (5.0-8.0) Ur Specific [place] 1.012 (1.003-1.030) Urine Protein 2+ H (NEGATIVE) mg/dL Urine Glucose (UA) 3+ H (Normal) mg/dL Urine Ketones Trace (NEGATIVE) mg/dL Urine Blood Negative (NEGATIVE) Urine Nitrate Negative (NEGATIVE) Urine Bilirubin Negative (NEGATIVE) Urine Urobilinogen Normal (0.2-1.0) mg/dL Ur Leukocyte Esterase Neg (Negative) Agustin/uL Urine WBC (Auto) 2 (0-5) /hpf Urine RBC (Auto) 1 (0-3) /hpf Ur Squamous Epith Cells < 1 (0-5) /hpf Urine Opiates Screen Negative (NEGATIVE) Urine Methadone Screen Negative (NEGATIVE) Ur Barbiturates Screen Negative (NEGATIVE) Ur Phencyclidine Scrn Negative (NEGATIVE) Ur Amphetamines Screen Negative (NEGATIVE) U Benzodiazepines Scrn Negative (NEGATIVE) U Oth Cocaine Metabols Negative (NEGATIVE) U Cannabinoids Screen Negative (NEGATIVE) Laboratory Results - last 24 hr 12/08/16 12/08/16 12/08/16 00:27 01:08 01:37 PT INR APTT Puncture Site pCO2 pO2 HCO3 ABG pH ABG Total CO2 ABG O2 Saturation ABG Base Excess ABG Hemoglobin ABG Carboxyhemoglobin POC ABG HHb (Measured) ABG Methemoglobin Evert Test A-a O2 Difference Respiratory Index Hgb O2 Saturation FiO2 Inspiratory BiPAP Expiratory BiPAP Sodium Potassium Chloride Carbon Dioxide Anion Gap BUN Creatinine Est GFR ( Amer) Est GFR (Non-Af Amer) POC Glucose (mg/dL) 181 H Random Glucose Hemoglobin A1c Calcium Phosphorus Magnesium Iron 40 L TIBC 238 L % Saturation 17 L Total Bilirubin AST ALT Alkaline Phosphatase Troponin I Total Protein Albumin Globulin Albumin/Globulin Ratio Vitamin B12 Free T4 TSH 3rd Generation Urine Color Yellow Urine Clarity Clear Urine pH 5.0 Ur Specific [place] 1.012 Urine Protein 2+ H Urine Glucose (UA) 3+ H Urine Ketones Trace Urine Blood Negative Urine Nitrate Negative Urine Bilirubin Negative Urine Urobilinogen Normal Ur Leukocyte Esterase Neg Urine WBC (Auto) 2 Urine RBC (Auto) 1 Ur Squamous Epith Cells < 1 Urine Opiates Screen Negative Urine Methadone Screen Negative Ur Barbiturates Screen Negative Ur Phencyclidine Scrn Negative Ur Amphetamines Screen Negative U Benzodiazepines Scrn Negative U Oth Cocaine Metabols Negative U Cannabinoids Screen Negative 12/08/16 12/08/16 12/08/16 01:42 01:43 02:03 PT 16.7 H INR 1.5 APTT 34 Puncture Site pCO2 pO2 HCO3 ABG pH ABG Total CO2 ABG O2 Saturation ABG Base Excess ABG Hemoglobin ABG Carboxyhemoglobin POC ABG HHb (Measured) ABG Methemoglobin Evert Test A-a O2 Difference Respiratory Index Hgb O2 Saturation FiO2 Inspiratory BiPAP Expiratory BiPAP Sodium Potassium Chloride Carbon Dioxide Anion Gap BUN Creatinine Est GFR ( Amer) Est GFR (Non-Af Amer) POC Glucose (mg/dL) Random Glucose Hemoglobin A1c 10.1 H Calcium Phosphorus Magnesium Iron TIBC % Saturation Total Bilirubin AST ALT Alkaline Phosphatase Troponin I Total Protein Albumin Globulin Albumin/Globulin Ratio Vitamin B12 > 1000 H Free T4 TSH 3rd Generation 1.87 Urine Color Urine Clarity Urine pH Ur Specific [place] Urine Protein Urine Glucose (UA) Urine Ketones Urine Blood Urine Nitrate Urine Bilirubin Urine Urobilinogen Ur Leukocyte Esterase Urine WBC (Auto) Urine RBC (Auto) Ur Squamous Epith Cells Urine Opiates Screen Urine Methadone Screen Ur Barbiturates Screen Ur Phencyclidine Scrn Ur Amphetamines Screen U Benzodiazepines Scrn U Oth Cocaine Metabols U Cannabinoids Screen 12/08/16 12/08/16 12/08/16 03:00 05:27 06:15 PT INR APTT Puncture Site Rr pCO2 31 L pO2 122 H HCO3 21.8 ABG pH 7.41 ABG Total CO2 20.6 L ABG O2 Saturation 99.3 H ABG Base Excess -4.0 L ABG Hemoglobin 13.5 ABG Carboxyhemoglobin 1.8 H POC ABG HHb (Measured) 0.7 ABG Methemoglobin 1.0 Evert Test Pos A-a O2 Difference 124.0 Respiratory Index 1.0 Hgb O2 Saturation 96.5 FiO2 40.0 Inspiratory BiPAP 12 Expiratory BiPAP 6 Sodium Potassium Chloride Carbon Dioxide Anion Gap BUN Creatinine Est GFR ( Amer) Est GFR (Non-Af Amer) POC Glucose (mg/dL) Random Glucose Hemoglobin A1c Calcium Phosphorus Magnesium Iron TIBC % Saturation Total Bilirubin AST ALT Alkaline Phosphatase Troponin I 0.0670 Total Protein Albumin Globulin Albumin/Globulin Ratio Vitamin B12 Free T4 1.57 TSH 3rd Generation Urine Color Urine Clarity Urine pH Ur Specific [place] Urine Protein Urine Glucose (UA) Urine Ketones Urine Blood Urine Nitrate Urine Bilirubin Urine Urobilinogen Ur Leukocyte Esterase Urine WBC (Auto) Urine RBC (Auto) Ur Squamous Epith Cells Urine Opiates Screen Urine Methadone Screen Ur Barbiturates Screen Ur Phencyclidine Scrn Ur Amphetamines Screen U Benzodiazepines Scrn U Oth Cocaine Metabols U Cannabinoids Screen 12/08/16 12/08/16 12/08/16 07:21 11:50 13:17 PT INR APTT Puncture Site pCO2 pO2 HCO3 ABG pH ABG Total CO2 ABG O2 Saturation ABG Base Excess ABG Hemoglobin ABG Carboxyhemoglobin POC ABG HHb (Measured) ABG Methemoglobin Evert Test A-a O2 Difference Respiratory Index Hgb O2 Saturation FiO2 Inspiratory BiPAP Expiratory BiPAP Sodium Potassium Chloride Carbon Dioxide Anion Gap BUN Creatinine Est GFR ( Amer) Est GFR (Non-Af Amer) POC Glucose (mg/dL) 306 H 437 H* 416 H* Random Glucose Hemoglobin A1c Calcium Phosphorus Magnesium Iron TIBC % Saturation Total Bilirubin AST ALT Alkaline Phosphatase Troponin I Total Protein Albumin Globulin Albumin/Globulin Ratio Vitamin B12 Free T4 TSH 3rd Generation Urine Color Urine Clarity Urine pH Ur Specific [place] Urine Protein Urine Glucose (UA) Urine Ketones Urine Blood Urine Nitrate Urine Bilirubin Urine Urobilinogen Ur Leukocyte Esterase Urine WBC (Auto) Urine RBC (Auto) Ur Squamous Epith Cells Urine Opiates Screen Urine Methadone Screen Ur Barbiturates Screen Ur Phencyclidine Scrn Ur Amphetamines Screen U Benzodiazepines Scrn U Oth Cocaine Metabols U Cannabinoids Screen 12/08/16 13:21 PT INR APTT Puncture Site pCO2 pO2 HCO3 ABG pH ABG Total CO2 ABG O2 Saturation ABG Base Excess ABG Hemoglobin ABG Carboxyhemoglobin POC ABG HHb (Measured) ABG Methemoglobin Evert Test A-a O2 Difference Respiratory Index Hgb O2 Saturation FiO2 Inspiratory BiPAP Expiratory BiPAP Sodium 132 Potassium 4.8 Chloride 95 L Carbon Dioxide 20 L Anion Gap 22 H BUN 24 H Creatinine 0.8 Est GFR ( Amer) > 60 Est GFR (Non-Af Amer) > 60 POC Glucose (mg/dL) Random Glucose 487 H* D Hemoglobin A1c Calcium 8.6 Phosphorus 5.2 H Magnesium 1.5 L Iron TIBC % Saturation Total Bilirubin 0.8 AST 44 ALT 50 Alkaline Phosphatase 69 Troponin I Total Protein 6.5 Albumin 3.3 L Globulin 3.2 Albumin/Globulin Ratio 1.0 Vitamin B12 Free T4 TSH 3rd Generation Urine Color Urine Clarity Urine pH Ur Specific [place] Urine Protein Urine Glucose (UA) Urine Ketones Urine Blood Urine Nitrate Urine Bilirubin Urine Urobilinogen Ur Leukocyte Esterase Urine WBC (Auto) Urine RBC (Auto) Ur Squamous Epith Cells Urine Opiates Screen Urine Methadone Screen Ur Barbiturates Screen Ur Phencyclidine Scrn Ur Amphetamines Screen U Benzodiazepines Scrn U Oth Cocaine Metabols U Cannabinoids Screen Fingerstick Blood Sugar Results: 487 Critical Care Progress Note - Nutrition Nutrition: Nutrition Category Date Time Status Heart Healthy Diet [DIET] Diets 12/08/16 Breakfast Active
--- NOTE | 2016-12-08 14:28 | RAD ---
PROCEDURE: CHEST RADIOGRAPH, 1 VIEW HISTORY: SOB COMPARISON: None available. FINDINGS: LUNGS: Bilateral perihilar infiltrate. PLEURA: Bilateral pleural effusion, small to moderate. CARDIOVASCULAR: Congestive change. OSSEOUS STRUCTURES: No significant abnormalities. VISUALIZED UPPER ABDOMEN: Normal. OTHER FINDINGS: None. IMPRESSION: Findings suggestive of acute pulmonary edema.
[2016-12-08] MEDS ORDERED: (Lantus) Insulin Glargine, Recombinant SC SCH (15:30)
[2016-12-08] MEDS: (Lantus) Insulin Glargine, Recombinant SC SCH ×2 (18:12→22:45)
[2016-12-08 21:27] LABS: CHLORIDE 99 mmol/L (98-107)
[2016-12-08 21:28] LABS: POTASSIUM 4.6 mmol/L (3.6-5.2); SODIUM 134 mmol/L (132-148)
[2016-12-08 21:30] LABS: GFR AFRICAN-AMERICAN > 60
[2016-12-08 21:31] LABS: BLOOD UREA NITROGEN 31 mg/dL (9-20); CALCIUM 8.7 mg/dl (8.6-10.4); CARBON DIOXIDE 21 mmol/L (22-30); GLUCOSE,RANDOM 242 mg/dL (75-110)
--- NOTE | 2016-12-08 21:31 | CP.PCM.CON ---
History of Present Illness - History of Present Illness History of Present Illness: History of Present Illness - History of Present Illness History of Present Illness: CC: Dyspnea HPI: 61 year old male with PMHx HTN, DM2, Diabetic coma 2005 - presents c/o SOB + productive Cough (white mucous) for the past 2 weeks. He admits to worsening SOB, especially while laying flat (feels like he's drowning) , requiring 2 pillows at night. Over the past 3 days, he reports associated LE swelling, stating that this never happened before. Patient states that prior to 2 weeks ago, his breathing was normal, and he could walk "for miles." He admits to increasing his fluid intact during this period due to increased thirst. Patient also reports an unintentional 40 pound weight loss in the last 2 months. Admits to weakness, diaphoresis x1 day, SOB, cough, nausea. Denies f/c, chest pain, palpitations, abdominal pain, d/c, urinary symptoms, hematochezia, hematemesis, sick contacts, or any additional complaints. ED course: Solumedrol 125mg, Labetalol 20mg, Novolin R 10mg, Lasix 20, Duonebs, Ceftriaxone 1Gm IVPB. Patient reports feeling less SOB and less weak after diuresis. 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 PMD: unsure Present on Admission - Present on Admission Any Indicators Present on Admission: Yes History of Uncontrolled Diabetes: Yes Review of Systems - Constitutional Constitutional: Weakness. absent: Chills, Fever - EENT Eyes: absent: Blurred Vision, Change in Vision Ears: absent: Decreased Hearing, Ear Discharge, Ear Pain Nose/Mouth/Throat: absent: Nasal Congestion, Sore Throat - Cardiovascular Cardiovascular: Dyspnea, Edema, Leg Edema. absent: Chest Pain - Respiratory Respiratory: Cough, Dyspnea, Pain on Inspiration, Chest Congestion. absent: Hemoptysis - Gastrointestinal Gastrointestinal: Nausea. absent: Constipation, Diarrhea, Vomiting - Genitourinary Genitourinary: absent: Difficulty Urinating, Dysuria, Hematuria - Musculoskeletal Musculoskeletal: absent: Muscle Weakness, Numbness, Tingling - Integumentary Integumentary: absent: Alopecia, Bleeding Lesions, Change in Hair, Skin Pain - Neurological Neurological: Weakness. absent: Confusion, Dizziness, Numbness - Psychiatric Psychiatric: absent: Anhedonia, Anxiety, Depression - Endocrine Endocrine: absent: Change in Body Appearance, Fatigue, Palpitations - Hematologic/Lymphatic Hematologic: absent: Easy Bleeding, Easy Bruising Physical Exam - Constitutional Appears: Non-toxic, No Acute Distress - Head Exam Head Exam: ATRAUMATIC, NORMAL INSPECTION - Eye Exam Eye Exam: EOMI, Normal appearance Pupil Exam: NORMAL ACCOMODATION - ENT Exam ENT Exam: Mucous Membranes Moist - Neck Exam Neck exam: Positive for: Normal Inspection. Negative for: Tenderness, Thyromegaly - Respiratory Exam Respiratory Exam: Decreased Breath Sounds, Rales, Respiratory Distress (when lying flat). absent: Wheezes - Cardiovascular Exam Cardiovascular Exam: Tachycardia, REGULAR RHYTHM, +S1, +S2. absent: JVD - GI/Abdominal Exam GI & Abdominal Exam: Normal Bowel Sounds, Soft. absent: Distended, Rebound, Tenderness Additional comments: +fluid on abdominal percussion - Extremities Exam Extremities exam: Positive for: pedal edema, pedal pulses present. Negative for : tenderness - Back Exam Back exam: NORMAL INSPECTION. absent: tenderness - Neurological Exam Neurological exam: Alert, CN II-XII Intact, Oriented x3 - Psychiatric Exam Psychiatric exam: Normal Affect, Normal Mood - Skin Skin Exam: Dry, Intact, Normal Color Past Patient History - Infectious Disease Hx of Infectious Diseases: None - Past Medical History & Family History Past Medical History?: Yes - Past Social History Smoking Status: Former Smoker - CARDIAC Hx Hypertension: Yes - PULMONARY Hx Respiratory Disorders: No - NEUROLOGICAL Hx Neurological Disorder: No - HEENT Hx HEENT Problems: Yes Other/Comment: glasses for reading - RENAL Hx Chronic Kidney Disease: No - ENDOCRINE/METABOLIC Hx Diabetes Mellitus Type 2: Yes - HEMATOLOGICAL/ONCOLOGICAL Hx Blood Disorders: No - INTEGUMENTARY Hx Dermatological Problems: No - MUSCULOSKELETAL/RHEUMATOLOGICAL Hx Musculoskeletal Disorders: No Hx Falls: No - GASTROINTESTINAL Hx Gastrointestinal Disorders: No - GENITOURINARY/GYNECOLOGICAL Hx Genitourinary Disorders: No - PSYCHIATRIC Hx Substance Use: No - SURGICAL HISTORY Hx Surgeries: No - ANESTHESIA Hx Anesthesia: No Meds Allergies/Adverse Reactions: Allergies Allergy/AdvReac Type Severity Reaction Status Date / Time No Known Allergies Allergy Unverified 12/07/16 22:35 - Medications Medications: Current Medications Aspirin (Aspirin Chewable) 81 mg PO DAILY [facility] Last Admin: 12/08/16 09:41 Dose: 81 mg Docusate Sodium (Colace) 100 mg PO BID [facility] Last Admin: 12/08/16 18:11 Dose: Not Given Famotidine (Pepcid) 20 mg PO DAILY [facility] Last Admin: 12/08/16 09:41 Dose: 20 mg Furosemide (Lasix) 40 mg IVP Q12 [facility] Heparin Sodium (Porcine) (Heparin) 5,000 units SC Q8 [facility] Last Admin: 12/08/16 14:25 Dose: 5,000 units Magnesium Sulfate/Dextrose (Magnesium Sulfate 1 Gm/100 Ml D5w) 100 mls @ 300 mls/hr IVPB Q30M [facility] Stop: 12/08/16 21:49 Last Admin: 12/08/16 21:20 Dose: 300 mls/hr Insulin Aspart (Novolog) 0 unit SC ACHS [facility] PRN Reason: Protocol Insulin Glargine (Lantus) 8 unit SC HS [facility] Last Admin: 12/08/16 18:12 Dose: 8 units Lisinopril (Zestril) 5 mg PO DAILY [facility] Last Admin: 12/08/16 09:48 Dose: 5 mg Metoprolol Tartrate (Lopressor) 25 mg PO BID [facility] Last Admin: 12/08/16 18:12 Dose: 25 mg Results - Vital Signs Recent Vital Signs: Last Vital Signs Temp 98.7 F 12/08/16 12:00 Pulse 103 H 12/08/16 18:00 Resp 23 12/08/16 18:00 BP 113/73 12/08/16 18:12 Pulse Ox 98 12/08/16 18:00 - Labs Result Diagrams: 12/07/16 22:50 12/08/16 13:21 Labs: Laboratory Results - last 24 hr 12/08/16 12/08/16 12/08/16 00:27 01:08 01:37 PT INR APTT Puncture Site pCO2 pO2 HCO3 ABG pH ABG Total CO2 ABG O2 Saturation ABG Base Excess ABG Hemoglobin ABG Carboxyhemoglobin POC ABG HHb (Measured) ABG Methemoglobin Evert Test A-a O2 Difference Respiratory Index Hgb O2 Saturation FiO2 Inspiratory BiPAP Expiratory BiPAP Sodium Potassium Chloride Carbon Dioxide Anion Gap BUN Creatinine Est GFR ( Amer) Est GFR (Non-Af Amer) POC Glucose (mg/dL) 181 H Random Glucose Hemoglobin A1c Calcium Phosphorus Magnesium Iron 40 L TIBC 238 L % Saturation 17 L Total Bilirubin AST ALT Alkaline Phosphatase Troponin I Total Protein Albumin Globulin Albumin/Globulin Ratio Vitamin B12 Procalcitonin Free T4 TSH 3rd Generation Urine Color Yellow Urine Clarity Clear Urine pH 5.0 Ur Specific [place] 1.012 Urine Protein 2+ H Urine Glucose (UA) 3+ H Urine Ketones Trace Urine Blood Negative Urine Nitrate Negative Urine Bilirubin Negative Urine Urobilinogen Normal Ur Leukocyte Esterase Neg Urine WBC (Auto) 2 Urine RBC (Auto) 1 Ur Squamous Epith Cells < 1 Urine Opiates Screen Negative Urine Methadone Screen Negative Ur Barbiturates Screen Negative Ur Phencyclidine Scrn Negative Ur Amphetamines Screen Negative U Benzodiazepines Scrn Negative U Oth Cocaine Metabols Negative U Cannabinoids Screen Negative 12/08/16 12/08/16 12/08/16 01:42 01:43 02:03 PT 16.7 H INR 1.5 APTT 34 Puncture Site pCO2 pO2 HCO3 ABG pH ABG Total CO2 ABG O2 Saturation ABG Base Excess ABG Hemoglobin ABG Carboxyhemoglobin POC ABG HHb (Measured) ABG Methemoglobin Evert Test A-a O2 Difference Respiratory Index Hgb O2 Saturation FiO2 Inspiratory BiPAP Expiratory BiPAP Sodium Potassium Chloride Carbon Dioxide Anion Gap BUN Creatinine Est GFR ( Amer) Est GFR (Non-Af Amer) POC Glucose (mg/dL) Random Glucose Hemoglobin A1c 10.1 H Calcium Phosphorus Magnesium Iron TIBC % Saturation Total Bilirubin AST ALT Alkaline Phosphatase Troponin I Total Protein Albumin Globulin Albumin/Globulin Ratio Vitamin B12 > 1000 H Procalcitonin Free T4 TSH 3rd Generation 1.87 Urine Color Urine Clarity Urine pH Ur Specific [place] Urine Protein Urine Glucose (UA) Urine Ketones Urine Blood Urine Nitrate Urine Bilirubin Urine Urobilinogen Ur Leukocyte Esterase Urine WBC (Auto) Urine RBC (Auto) Ur Squamous Epith Cells Urine Opiates Screen Urine Methadone Screen Ur Barbiturates Screen Ur Phencyclidine Scrn Ur Amphetamines Screen U Benzodiazepines Scrn U Oth Cocaine Metabols U Cannabinoids Screen 12/08/16 12/08/16 12/08/16 03:00 05:27 06:15 PT INR APTT Puncture Site Rr pCO2 31 L pO2 122 H HCO3 21.8 ABG pH 7.41 ABG Total CO2 20.6 L ABG O2 Saturation 99.3 H ABG Base Excess -4.0 L ABG Hemoglobin 13.5 ABG Carboxyhemoglobin 1.8 H POC ABG HHb (Measured) 0.7 ABG Methemoglobin 1.0 Evert Test Pos A-a O2 Difference 124.0 Respiratory Index 1.0 Hgb O2 Saturation 96.5 FiO2 40.0 Inspiratory BiPAP 12 Expiratory BiPAP 6 Sodium Potassium Chloride Carbon Dioxide Anion Gap BUN Creatinine Est GFR ( Amer) Est GFR (Non-Af Amer) POC Glucose (mg/dL) Random Glucose Hemoglobin A1c Calcium Phosphorus Magnesium Iron TIBC % Saturation Total Bilirubin AST ALT Alkaline Phosphatase Troponin I 0.0670 Total Protein Albumin Globulin Albumin/Globulin Ratio Vitamin B12 Procalcitonin 0.26 Free T4 1.57 TSH 3rd Generation Urine Color Urine Clarity Urine pH Ur Specific [place] Urine Protein Urine Glucose (UA) Urine Ketones Urine Blood Urine Nitrate Urine Bilirubin Urine Urobilinogen Ur Leukocyte Esterase Urine WBC (Auto) Urine RBC (Auto) Ur Squamous Epith Cells Urine Opiates Screen Urine Methadone Screen Ur Barbiturates Screen Ur Phencyclidine Scrn Ur Amphetamines Screen U Benzodiazepines Scrn U Oth Cocaine Metabols U Cannabinoids Screen 12/08/16 12/08/16 12/08/16 07:21 11:50 13:17 PT INR APTT Puncture Site pCO2 pO2 HCO3 ABG pH ABG Total CO2 ABG O2 Saturation ABG Base Excess ABG Hemoglobin ABG Carboxyhemoglobin POC ABG HHb (Measured) ABG Methemoglobin Evert Test A-a O2 Difference Respiratory Index Hgb O2 Saturation FiO2 Inspiratory BiPAP Expiratory BiPAP Sodium Potassium Chloride Carbon Dioxide Anion Gap BUN Creatinine Est GFR ( Amer) Est GFR (Non-Af Amer) POC Glucose (mg/dL) 306 H 437 H* 416 H* Random Glucose Hemoglobin A1c Calcium Phosphorus Magnesium Iron TIBC % Saturation Total Bilirubin AST ALT Alkaline Phosphatase Troponin I Total Protein Albumin Globulin Albumin/Globulin Ratio Vitamin B12 Procalcitonin Free T4 TSH 3rd Generation Urine Color Urine Clarity Urine pH Ur Specific [place] Urine Protein Urine Glucose (UA) Urine Ketones Urine Blood Urine Nitrate Urine Bilirubin Urine Urobilinogen Ur Leukocyte Esterase Urine WBC (Auto) Urine RBC (Auto) Ur Squamous Epith Cells Urine Opiates Screen Urine Methadone Screen Ur Barbiturates Screen Ur Phencyclidine Scrn Ur Amphetamines Screen U Benzodiazepines Scrn U Oth Cocaine Metabols U Cannabinoids Screen 12/08/16 12/08/16 12/08/16 13:21 15:03 16:00 PT INR APTT Puncture Site pCO2 pO2 HCO3 ABG pH ABG Total CO2 ABG O2 Saturation ABG Base Excess ABG Hemoglobin ABG Carboxyhemoglobin POC ABG HHb (Measured) ABG Methemoglobin Evert Test A-a O2 Difference Respiratory Index Hgb O2 Saturation FiO2 Inspiratory BiPAP Expiratory BiPAP Sodium 132 Potassium 4.8 Chloride 95 L Carbon Dioxide 20 L Anion Gap 22 H BUN 24 H Creatinine 0.8 Est GFR ( Amer) > 60 Est GFR (Non-Af Amer) > 60 POC Glucose (mg/dL) 345 H 314 H Random Glucose 487 H* D Hemoglobin A1c Calcium 8.6 Phosphorus 5.2 H Magnesium 1.5 L Iron TIBC % Saturation Total Bilirubin 0.8 AST 44 ALT 50 Alkaline Phosphatase 69 Troponin I Total Protein 6.5 Albumin 3.3 L Globulin 3.2 Albumin/Globulin Ratio 1.0 Vitamin B12 Procalcitonin Free T4 TSH 3rd Generation Urine Color Urine Clarity Urine pH Ur Specific [place] Urine Protein Urine Glucose (UA) Urine Ketones Urine Blood Urine Nitrate Urine Bilirubin Urine Urobilinogen Ur Leukocyte Esterase Urine WBC (Auto) Urine RBC (Auto) Ur Squamous Epith Cells Urine Opiates Screen Urine Methadone Screen Ur Barbiturates Screen Ur Phencyclidine Scrn Ur Amphetamines Screen U Benzodiazepines Scrn U Oth Cocaine Metabols U Cannabinoids Screen 12/08/16 12/08/16 12/08/16 16:59 17:53 19:27 PT INR APTT Puncture Site pCO2 pO2 HCO3 ABG pH ABG Total CO2 ABG O2 Saturation ABG Base Excess ABG Hemoglobin ABG Carboxyhemoglobin POC ABG HHb (Measured) ABG Methemoglobin Evert Test A-a O2 Difference Respiratory Index Hgb O2 Saturation FiO2 Inspiratory BiPAP Expiratory BiPAP Sodium Potassium Chloride Carbon Dioxide Anion Gap BUN Creatinine Est GFR ( Amer) Est GFR (Non-Af Amer) POC Glucose (mg/dL) 209 H 124 H 197 H Random Glucose Hemoglobin A1c Calcium Phosphorus Magnesium Iron TIBC % Saturation Total Bilirubin AST ALT Alkaline Phosphatase Troponin I Total Protein Albumin Globulin Albumin/Globulin Ratio Vitamin B12 Procalcitonin Free T4 TSH 3rd Generation Urine Color Urine Clarity Urine pH Ur Specific [place] Urine Protein Urine Glucose (UA) Urine Ketones Urine Blood Urine Nitrate Urine Bilirubin Urine Urobilinogen Ur Leukocyte Esterase Urine WBC (Auto) Urine RBC (Auto) Ur Squamous Epith Cells Urine Opiates Screen Urine Methadone Screen Ur Barbiturates Screen Ur Phencyclidine Scrn Ur Amphetamines Screen U Benzodiazepines Scrn U Oth Cocaine Metabols U Cannabinoids Screen Assessment & Plan - Assessment and Plan (Free Text) Assessment: Respiratory failure/CHF/HTN Systolic CHF acute Lasix 40mg IVP d Lisinopril 5mg PO d Lopressor 25mg PO BID EF around 20% Consult Dr. [place] for Cardiomyopathy Pulmonary Congestion -due to Left sided heart failure. - Lasix 40mg IVP d - f/u CT angio chest/abd/pelv Lower extremity Edema -likely due to right sided heart failure Diabetes, uncontrolled A1C 10.1 ISS - Novolog ACHS accuchecks Leucocytosis -no fever f/u with rpt CBC in ED - Ceftriaxone 1Gm -f/u procalcitonin Prophylaxis Hep 5k SC Q8 ASA 81mg PO d Pepcid 20mg PO d SCDs contraindicated
[2016-12-09 06:27] LABS: BASO % 0.3 % (0.0-2.0); EOS % 0.1 % (0.0-4.0); HEMATOCRIT 39.8 % (35.0-51.0); LYMPH # 1.7 K/uL (1.0-4.3); LYMPH % 9.6 % (20.0-40.0); MEAN CELL VOLUME 88.3 fL (80.0-94.0); MEAN CORPUSCULAR HEMOGLOBIN 29.5 pg (27.0-31.0); MEAN CORPUSCULAR HGB CONC 33.5 g/dL (33.0-37.0); MEAN PLATELET VOLUME 10.9 fL (7.2-11.7); MONO # 1.6 K/uL (0.0-0.8); MONO % 8.8 % (0.0-10.0); PLATELET COUNT 262 K/uL (130-400); RED CELL DISTRIBUTION WIDTH 13.7 % (11.5-14.5); WHITE BLOOD COUNT 17.8 K/uL (4.8-10.8)
[2016-12-09 06:38] LABS: CHLORIDE 101 mmol/L (98-107); POTASSIUM 3.9 mmol/L (3.6-5.2); SODIUM 136 mmol/L (132-148)
[2016-12-09 06:40] LABS: BILIRUBIN,TOTAL 0.6 mg/dL (0.2-1.3); CARBON DIOXIDE 23 mmol/L (22-30); GFR AFRICAN-AMERICAN > 60
[2016-12-09 06:41] LABS: ALB/GLOB RATIO 0.8 (1.0-2.1); ALKALINE PHOSPHATASE 74 U/L (38-126); ALT/SGPT 56 U/L (21-72); AST/SGOT 30 U/L (17-59); BLOOD UREA NITROGEN 29 mg/dL (9-20); CALCIUM 8.7 mg/dl (8.6-10.4); GLUCOSE,RANDOM 247 mg/dL (75-110); MAGNESIUM 1.9 mg/dL (1.6-2.3); PHOSPHOROUS 4.1 mg/dL (2.5-4.5); TOTAL PROTEIN 6.5 g/dL (6.3-8.3)
[2016-12-09] MEDS: (Novolog) Insulin Aspart, Recombinant 100 u/ml 10 ml vial SC SCH ×4 (09:02→22:22)
--- NOTE | 2016-12-09 09:11 | CP.PCM.PN ---
Subjective - Date & Time of Evaluation Date of Evaluation: 12/08/16 Time of Evaluation: 22:00 - Subjective Subjective: Patient's breathing improved; Objective - Vital Signs/Intake and Output Vital Signs (last 24 hours): Temp Pulse Resp BP Pulse Ox 97.8 F 109 H 20 133/92 H 96 12/09/16 08:00 12/09/16 08:00 12/09/16 08:00 12/09/16 08:00 12/09/16 08:00 Intake and Output: 12/09/16 12/09/16 06:59 18:59 Intake Total 680 Output Total 1700 Balance -1020 - Medications Medications: Current Medications Aspirin (Aspirin Chewable) 81 mg PO DAILY [facility] Last Admin: 12/08/16 09:41 Dose: 81 mg Docusate Sodium (Colace) 100 mg PO BID [facility] Last Admin: 12/08/16 18:11 Dose: Not Given Famotidine (Pepcid) 20 mg PO DAILY [facility] Last Admin: 12/08/16 09:41 Dose: 20 mg Furosemide (Lasix) 40 mg IVP Q12 [facility] Last Admin: 12/08/16 22:45 Dose: 40 mg Heparin Sodium (Porcine) (Heparin) 5,000 units SC Q8 [facility] Last Admin: 12/09/16 05:25 Dose: 5,000 units Insulin Aspart (Novolog) 0 unit SC ACHS [facility] PRN Reason: Protocol Last Admin: 12/09/16 09:02 Dose: 6 unit Insulin Glargine (Lantus) 8 unit SC HS [facility] Last Admin: 12/08/16 22:45 Dose: 8 units Lisinopril (Zestril) 5 mg PO DAILY [facility] Last Admin: 12/08/16 09:48 Dose: 5 mg Metoprolol Tartrate (Lopressor) 25 mg PO BID [facility] Last Admin: 12/08/16 18:12 Dose: 25 mg - Labs Labs: 12/09/16 06:18 12/09/16 06:18 PT 16.7 SECONDS (9.7-12.2) H 12/08/16 02:03 INR 1.5 12/08/16 02:03 APTT 34 SECONDS (21-34) 12/08/16 02:03 - Constitutional Appears: Non-toxic, No Acute Distress - Head Exam Head Exam: NORMAL INSPECTION - Eye Exam Eye Exam: Normal appearance - ENT Exam ENT Exam: Mucous Membranes Moist - Neck Exam Neck Exam: Normal Inspection - Respiratory Exam Respiratory Exam: Clear to Ausculation Bilateral, NORMAL BREATHING PATTERN - Cardiovascular Exam Cardiovascular Exam: REGULAR RHYTHM, +S1, +S2 - GI/Abdominal Exam GI & Abdominal Exam: Soft. absent: Distended - Neurological Exam Neurological Exam: Alert, Awake - Skin Skin Exam: Warm. absent: Cyanosis Assessment and Plan (1) Diabetes Assessment & Plan: Uncontrolled; started on insulin drip this afternoon; Status: Acute (2) Heart failure, systolic, with acute decompensation Assessment & Plan: Dilated cardiomyopathy with EF 20%; on IV lasix 40 mg q12h; symptomatically improved; will get cardiology consult for life vest, eventual ICD placement; Status: Acute (3) Anemia Assessment & Plan: Iron deficient; start PO iron; Status: Acute (4) Leukocytosis Assessment & Plan: Unclear etiology; procalcitonin level sent to look for evidence of bacterial infection; IV steroids given in ED will confound any improvement; Status: Acute
[2016-12-09 09:18] LABS: NEUTROPHIL 79 % (50-75); REACTIVE LYMPHOCYTES 2 % (0-0); TOTAL CELLS COUNTED 100
[2016-12-09 09:24] LABS: LARGE PLATELETS PRESENT
--- NOTE | 2016-12-09 10:59 | RAD ---
HISTORY: chf COMPARISON: 12/07/2016 FINDINGS: LUNGS: No active pulmonary disease. PLEURA: Small bilateral pleural effusion, left greater than right. CARDIOVASCULAR: Mild congestive change. OSSEOUS STRUCTURES: No significant abnormalities. VISUALIZED UPPER ABDOMEN: Normal. OTHER FINDINGS: None. IMPRESSION: Bilateral small pleural effusion, left greater than right. Mild congestive change.
--- NOTE | 2016-12-09 15:04 | CP.PCM.PN ---
Subjective - Date & Time of Evaluation Date of Evaluation: 12/09/16 Time of Evaluation: 14:20 - Subjective Subjective: Patient reports breathing improved; Reports shortness of breath since past 1 week; otherwise, was previously asymptomatic, able to climb several flights of stairs regularly at work; chest pain has been going on since past 1 month, described as a feeling of something "tearing his chest open", lasting about half an hour, radiating to his jaw, neck and upper back; denies having had leg swelling; Objective - Vital Signs/Intake and Output Vital Signs (last 24 hours): Temp Pulse Resp BP Pulse Ox 97.8 F 109 H 20 114/79 96 12/09/16 08:00 12/09/16 08:00 12/09/16 08:00 12/09/16 09:55 12/09/16 08:00 Intake and Output: 12/09/16 12/09/16 06:59 18:59 Intake Total 680 Output Total 1700 Balance -1020 - Medications Medications: Current Medications Aspirin (Aspirin Chewable) 81 mg PO DAILY [facility] Last Admin: 12/09/16 09:52 Dose: 81 mg Docusate Sodium (Colace) 100 mg PO BID [facility] Last Admin: 12/09/16 09:53 Dose: 100 mg Famotidine (Pepcid) 20 mg PO DAILY [facility] Last Admin: 12/09/16 09:53 Dose: 20 mg Furosemide (Lasix) 40 mg IVP Q12 [facility] Last Admin: 12/09/16 09:55 Dose: 40 mg Heparin Sodium (Porcine) (Heparin) 5,000 units SC Q8 [facility] Last Admin: 12/09/16 14:31 Dose: 5,000 units Insulin Aspart (Novolog) 0 unit SC ACHS [facility] PRN Reason: Protocol Last Admin: 12/09/16 12:12 Dose: 8 unit Insulin Glargine (Lantus) 8 unit SC HS [facility] Last Admin: 12/08/16 22:45 Dose: 8 units Lisinopril (Zestril) 5 mg PO DAILY [facility] Last Admin: 12/09/16 09:52 Dose: 5 mg Metoprolol Tartrate (Lopressor) 25 mg PO BID [facility] Last Admin: 12/09/16 09:54 Dose: 25 mg - Labs Labs: 12/09/16 06:18 12/09/16 06:18 PT 16.7 SECONDS (9.7-12.2) H 12/08/16 02:03 INR 1.5 12/08/16 02:03 APTT 34 SECONDS (21-34) 12/08/16 02:03 - Constitutional Appears: Well, No Acute Distress - Head Exam Head Exam: NORMAL INSPECTION - Eye Exam Eye Exam: Normal appearance. absent: Scleral icterus - ENT Exam ENT Exam: Mucous Membranes Moist - Neck Exam Neck Exam: Normal Inspection - Respiratory Exam Additional comments: mild bilateral basal rhales; mildly tachypneic; - Cardiovascular Exam Cardiovascular Exam: Irregular Rhythm, +S1, +S2 - GI/Abdominal Exam GI & Abdominal Exam: Soft. absent: Distended, Tenderness - Extremities Exam Additional comments: Mild bilateral lower leg edema - Neurological Exam Neurological Exam: Alert, Awake - Psychiatric Exam Psychiatric exam: Normal Affect, Normal Mood - Skin Skin Exam: Warm. absent: Cyanosis Assessment and Plan (1) Diabetes Assessment & Plan: Better controlled after starting lantus 8 u last night; A1C 10.1 despite being on metformin 500 mg bid and glipizide 10 mg daily; gives history of adequately controlled fasting blood sugar; will restart glipizide at 5 mg today; continue to hold metformin for now (in case cath being planned); Status: Acute (2) Heart failure, systolic, with acute decompensation Assessment & Plan: Still with evidence of volume overload on exam although CXR improved; will continue lasix IV 40 mg q12h; continue metoprolol and lisinopril; may need cath to look for ischemic etiology; will f/u with cardio, awaiting lifevest (being setup by EP cardio); Status: Acute (3) Leukocytosis Assessment & Plan: Unclear etiology on initial presentation; persistence due to steroids; no evidence of infection; monitor; Status: Acute (4) Tachycardia Assessment & Plan: Despite low dose metoprolol; will repeat ECG, increase metoprolol to 50 mg bid; Status: Acute (5) Chest pain Assessment & Plan: Unclear etiology; troponin negative; possibly unstable angina; f/u with cardio; continue ASA 81, start crestor 10 mg, check lipid panel; Status: Acute
--- NOTE | 2016-12-09 17:33 | CP.PCM.CON ---
History of Present Illness - History of Present Illness History of Present Illness: 61 year old male with h/o non compliance with seeing doctors on no meds h/o DM, HTN presents with increase le edema similar to an episode in 2006 that was ignored by pt. No nausea, dysuria what he c/o was chest, PEREZ , SOB, LE edema in [place] also heled to interpret Review of Systems - Review of Systems Systems not reviewed;Unavailable: Acuity of Condition - Constitutional Constitutional: absent: Increased Appetite - EENT Eyes: absent: Change in Vision Nose/Mouth/Throat: absent: Nasal Discharge - Cardiovascular Cardiovascular: Chest Pain, Pedal Edema - Respiratory Respiratory: Dyspnea, Dyspnea on Exertion - Gastrointestinal Gastrointestinal: absent: Coffee Ground Emesis - Genitourinary Genitourinary: absent: Dysuria - Musculoskeletal Musculoskeletal: absent: Back Pain - Integumentary Integumentary: absent: Change in Hair - Neurological Neurological: absent: Weakness - Psychiatric Psychiatric: absent: Anxiety - Endocrine Endocrine: Fatigue, Palpitations. absent: Change in Libido - Hematologic/Lymphatic Hematologic: absent: Easy Bleeding Past Patient History - Infectious Disease Hx of Infectious Diseases: None - Past Medical History & Family History Past Medical History?: Yes - Past Social History Smoking Status: Former Smoker - CARDIAC Hx Hypertension: Yes - PULMONARY Hx Respiratory Disorders: No - NEUROLOGICAL Hx Neurological Disorder: No - HEENT Hx HEENT Problems: Yes Other/Comment: glasses for reading - RENAL Hx Chronic Kidney Disease: No - ENDOCRINE/METABOLIC Hx Diabetes Mellitus Type 2: Yes - HEMATOLOGICAL/ONCOLOGICAL Hx Blood Disorders: No - INTEGUMENTARY Hx Dermatological Problems: No - MUSCULOSKELETAL/RHEUMATOLOGICAL Hx Musculoskeletal Disorders: No Hx Falls: No - GASTROINTESTINAL Hx Gastrointestinal Disorders: No - GENITOURINARY/GYNECOLOGICAL Hx Genitourinary Disorders: No - PSYCHIATRIC Hx Substance Use: No - SURGICAL HISTORY Hx Surgeries: No - ANESTHESIA Hx Anesthesia: No Meds Allergies/Adverse Reactions: Allergies Allergy/AdvReac Type Severity Reaction Status Date / Time No Known Allergies Allergy Unverified 12/07/16 22:35 - Medications Medications: Current Medications Aspirin (Aspirin Chewable) 81 mg PO DAILY [facility] Last Admin: 12/09/16 09:52 Dose: 81 mg Docusate Sodium (Colace) 100 mg PO BID [facility] Last Admin: 12/09/16 17:27 Dose: 100 mg Famotidine (Pepcid) 20 mg PO DAILY [facility] Last Admin: 12/09/16 09:53 Dose: 20 mg Furosemide (Lasix) 40 mg IVP Q12 [facility] Last Admin: 12/09/16 09:55 Dose: 40 mg Glipizide (Glucotrol) 5 mg PO ACB [facility] Last Admin: 12/09/16 17:27 Dose: 5 mg Heparin Sodium (Porcine) (Heparin) 5,000 units SC Q8 [facility] Last Admin: 12/09/16 14:31 Dose: 5,000 units Insulin Aspart (Novolog) 0 unit SC ACHS [facility] PRN Reason: Protocol Last Admin: 12/09/16 17:27 Dose: Not Given Insulin Glargine (Lantus) 8 unit SC HS [facility] Last Admin: 12/08/16 22:45 Dose: 8 units Lisinopril (Zestril) 5 mg PO DAILY [facility] Last Admin: 12/09/16 09:52 Dose: 5 mg Metoprolol Tartrate (Lopressor) 50 mg PO BID [facility] Last Admin: 12/09/16 17:27 Dose: 50 mg Rosuvastatin Calcium (Crestor) 10 mg PO [facility] Physical Exam - Constitutional Appears: Well - Head Exam Head Exam: ATRAUMATIC - Eye Exam Eye Exam: Normal appearance - ENT Exam ENT Exam: Mucous Membranes Moist - Respiratory Exam Respiratory Exam: Rales, Wheezes, NORMAL BREATHING PATTERN - Cardiovascular Exam Cardiovascular Exam: REGULAR RHYTHM - GI/Abdominal Exam GI & Abdominal Exam: Normal Bowel Sounds, Soft - Exam External exam: NORMAL EXTERNAL EXAM. absent: Erythema - Extremities Exam Extremities exam: Positive for: pedal edema - Neurological Exam Neurological exam: Alert, Oriented x3 - Psychiatric Exam Psychiatric exam: Normal Affect, Normal Mood - Skin Skin Exam: Dry, Intact Results - Vital Signs Recent Vital Signs: Last Vital Signs Temp 98.3 F 12/09/16 16:00 Pulse 100 H 12/09/16 16:00 Resp 20 12/09/16 16:00 BP 118/78 12/09/16 16:00 Pulse Ox 97 12/09/16 16:00 - Labs Result Diagrams: 12/12/16 07:03 12/12/16 07:03 Labs: Laboratory Results - last 24 hr 12/08/16 12/08/16 12/08/16 06:15 17:53 19:27 WBC RBC Hgb Hct MCV MCH MCHC RDW Plt Count MPV Neut % (Auto) Lymph % (Auto) [place] % (Auto) Eos % (Auto) Baso % (Auto) Neut # Lymph # [place] # Eos # Baso # Neutrophils % (Manual) Lymphocytes % (Manual) Reactive Lymphs % Monocytes % (Manual) Toxic Granulation Platelet Estimate Large Platelets Polychromasia Hypochromasia (manual) Anisocytosis (manual) Macrocytosis (manual) Sodium Potassium Chloride Carbon Dioxide Anion Gap BUN Creatinine Est GFR ( Amer) Est GFR (Non-Af Amer) POC Glucose (mg/dL) 124 H 197 H Random Glucose Calcium Phosphorus Magnesium Total Bilirubin AST ALT Alkaline Phosphatase Total Protein Albumin Globulin Albumin/Globulin Ratio Procalcitonin 0.26 12/08/16 12/08/16 12/09/16 21:11 21:45 06:18 WBC 17.8 H RBC 4.51 Hgb 13.3 Hct 39.8 MCV 88.3 MCH 29.5 MCHC 33.5 RDW 13.7 Plt Count 262 MPV 10.9 Neut % (Auto) 81.2 H Lymph % (Auto) 9.6 L [place] % (Auto) 8.8 Eos % (Auto) 0.1 Baso % (Auto) 0.3 Neut # 14.5 H Lymph # 1.7 [place] # 1.6 H Eos # 0.0 Baso # 0.0 Neutrophils % (Manual) 79 H Lymphocytes % (Manual) 9 L Reactive Lymphs % 2 H Monocytes % (Manual) 10 Toxic Granulation Present Platelet Estimate Normal Large Platelets Present Polychromasia Slight Hypochromasia (manual) Slight Anisocytosis (manual) Slight Macrocytosis (manual) Slight Sodium 134 136 Potassium 4.6 3.9 Chloride 99 101 Carbon Dioxide 21 L 23 Anion Gap 19 16 BUN 31 H 29 H Creatinine 0.9 0.8 Est GFR ( Amer) > 60 > 60 Est GFR (Non-Af Amer) > 60 > 60 POC Glucose (mg/dL) 226 H Random Glucose 242 H 247 H Calcium 8.7 8.7 Phosphorus 4.1 Magnesium 1.9 Total Bilirubin 0.6 AST 30 ALT 56 Alkaline Phosphatase 74 Total Protein 6.5 Albumin 2.9 L Globulin 3.5 Albumin/Globulin Ratio 0.8 L Procalcitonin 12/09/16 12/09/16 12/09/16 07:43 11:13 16:55 WBC RBC Hgb Hct MCV MCH MCHC RDW Plt Count MPV Neut % (Auto) Lymph % (Auto) [place] % (Auto) Eos % (Auto) Baso % (Auto) Neut # Lymph # [place] # Eos # Baso # Neutrophils % (Manual) Lymphocytes % (Manual) Reactive Lymphs % Monocytes % (Manual) Toxic Granulation Platelet Estimate Large Platelets Polychromasia Hypochromasia (manual) Anisocytosis (manual) Macrocytosis (manual) Sodium Potassium Chloride Carbon Dioxide Anion Gap BUN Creatinine Est GFR ( Amer) Est GFR (Non-Af Amer) POC Glucose (mg/dL) 240 H 253 H 129 H Random Glucose Calcium Phosphorus Magnesium Total Bilirubin AST ALT Alkaline Phosphatase Total Protein Albumin Globulin Albumin/Globulin Ratio Procalcitonin Assessment & Plan (1) Chest pain Assessment and Plan: cardiac cath aggressive diuresis if cath negative will need bi v icd vs vest Status: Acute (2) Chronic congestive heart failure Status: Acute (3) Heart failure, systolic, with acute decompensation Status: Acute (4) Tachycardia Status: Acute
--- NOTE | 2016-12-09 18:17 | CP.PCM.PN ---
Subjective - Date & Time of Evaluation Date of Evaluation: 12/09/16 Time of Evaluation: 10:00 - Subjective Subjective: Awaiting EP recommendations. Continue current meds Objective - Vital Signs/Intake and Output Vital Signs (last 24 hours): Temp Pulse Resp BP Pulse Ox 98.3 F 100 H 20 118/78 97 12/09/16 16:00 12/09/16 16:00 12/09/16 16:00 12/09/16 16:00 12/09/16 16:00 Intake and Output: 12/09/16 12/09/16 06:59 18:59 Intake Total 680 Output Total 1700 Balance -1020 - Medications Medications: Current Medications Aspirin (Aspirin Chewable) 81 mg PO DAILY [facility] Last Admin: 12/09/16 09:52 Dose: 81 mg Docusate Sodium (Colace) 100 mg PO BID [facility] Last Admin: 12/09/16 17:27 Dose: 100 mg Famotidine (Pepcid) 20 mg PO DAILY [facility] Last Admin: 12/09/16 09:53 Dose: 20 mg Furosemide (Lasix) 40 mg IVP Q12 [facility] Last Admin: 12/09/16 09:55 Dose: 40 mg Glipizide (Glucotrol) 5 mg PO ACB [facility] Last Admin: 12/09/16 17:27 Dose: 5 mg Heparin Sodium (Porcine) (Heparin) 5,000 units SC Q8 [facility] Last Admin: 12/09/16 14:31 Dose: 5,000 units Insulin Aspart (Novolog) 0 unit SC ACHS [facility] PRN Reason: Protocol Last Admin: 12/09/16 17:27 Dose: Not Given Insulin Glargine (Lantus) 8 unit SC HS [facility] Last Admin: 12/08/16 22:45 Dose: 8 units Lisinopril (Zestril) 5 mg PO DAILY [facility] Last Admin: 12/09/16 09:52 Dose: 5 mg Metoprolol Tartrate (Lopressor) 50 mg PO BID [facility] Last Admin: 12/09/16 17:27 Dose: 50 mg Rosuvastatin Calcium (Crestor) 10 mg PO HS [facility] - Labs Labs: 12/09/16 06:18 12/09/16 06:18 PT 16.7 SECONDS (9.7-12.2) H 12/08/16 02:03 INR 1.5 12/08/16 02:03 APTT 34 SECONDS (21-34) 12/08/16 02:03
[2016-12-09] MEDS: (Lantus) Insulin Glargine, Recombinant SC SCH (21:12)
[2016-12-10 07:25] LABS: CHLORIDE 99 mmol/L (98-107); POTASSIUM 2.9 mmol/L (3.6-5.2); SODIUM 138 mmol/L (132-148)
[2016-12-10 07:27] LABS: GFR AFRICAN-AMERICAN > 60
[2016-12-10 07:28] LABS: ALB/GLOB RATIO 0.8 (1.0-2.1); ALKALINE PHOSPHATASE 62 U/L (38-126); ALT/SGPT 63 U/L (21-72); AST/SGOT 33 U/L (17-59); BLOOD UREA NITROGEN 23 mg/dL (9-20); CARBON DIOXIDE 29 mmol/L (22-30); GLUCOSE,RANDOM 85 mg/dL (75-110); PHOSPHOROUS 4.3 mg/dL (2.5-4.5); TOTAL PROTEIN 6.2 g/dL (6.3-8.3)
[2016-12-10 07:29] LABS: CALCIUM 8.4 mg/dl (8.6-10.4); MAGNESIUM 1.6 mg/dL (1.6-2.3)
[2016-12-10 07:30] LABS: CHOLESTEROL 147 mg/dL (0-199)
[2016-12-10 07:38] LABS: BASO % 0.4 % (0.0-2.0); EOS # 0.2 K/uL (0.0-0.7); EOS % 1.7 % (0.0-4.0); HEMATOCRIT 40.8 % (35.0-51.0); LYMPH # 2.1 K/uL (1.0-4.3); LYMPH % 19.3 % (20.0-40.0); MEAN CELL VOLUME 87.9 fL (80.0-94.0); MEAN CORPUSCULAR HEMOGLOBIN 29.4 pg (27.0-31.0); MEAN CORPUSCULAR HGB CONC 33.4 g/dL (33.0-37.0); MEAN PLATELET VOLUME 11.3 fL (7.2-11.7); MONO # 1.2 K/uL (0.0-0.8); MONO % 10.8 % (0.0-10.0); NRBC % 0.1 % (0.0-2.0); RED CELL DISTRIBUTION WIDTH 13.7 % (11.5-14.5); WHITE BLOOD COUNT 10.7 K/uL (4.8-10.8)
[2016-12-10] MEDS: (Novolog) Insulin Aspart, Recombinant 100 u/ml 10 ml vial SC SCH ×6 (07:57→21:50)
--- NOTE | 2016-12-10 08:09 | CP.PCM.PN ---
Addendum entered and electronically signed by Lay Pickett DO 12/10/16 13: 22: Patient has severe left ventricular dysfunction with cardiomyopathy. He will need a biventricular ICD. Original Note: <Lay Pickett - Last Filed: 12/10/16 09:23> Subjective - Date & Time of Evaluation Date of Evaluation: 12/10/16 Time of Evaluation: 07:45 - Subjective Subjective: Cardiology Progress note for Dr. [place] Patient seen and examined at bedside. There were no acute overnight events. Patient reports feeling much better today. He says he has some minor chest pain with very deep breaths. He denies pain, SOB, n/v/d, numbness/tingling, fever or chills. Objective - Vital Signs/Intake and Output Vital Signs (last 24 hours): Temp Pulse Resp BP Pulse Ox 92 F L 92 H 18 106/71 96 12/10/16 07:58 12/10/16 07:58 12/10/16 07:58 12/10/16 07:58 12/10/16 07:58 Intake and Output: 12/10/16 12/10/16 06:59 18:59 Intake Total 240 Balance 240 - Medications Medications: Current Medications Aspirin (Aspirin Chewable) 81 mg PO DAILY [facility] Last Admin: 12/09/16 09:52 Dose: 81 mg Docusate Sodium (Colace) 100 mg PO BID [facility] Last Admin: 12/09/16 17:27 Dose: 100 mg Famotidine (Pepcid) 20 mg PO DAILY [facility] Last Admin: 12/09/16 09:53 Dose: 20 mg Furosemide (Lasix) 40 mg IVP Q12 [facility] Last Admin: 12/09/16 21:13 Dose: 40 mg Glipizide (Glucotrol) 5 mg PO ACB [facility] Last Admin: 12/09/16 17:27 Dose: 5 mg Heparin Sodium (Porcine) (Heparin) 5,000 units SC Q8 [facility] Last Admin: 12/10/16 05:07 Dose: 5,000 units Insulin Aspart (Novolog) 0 unit SC ACHS [facility] PRN Reason: Protocol Last Admin: 12/10/16 07:57 Dose: Not Given Insulin Glargine (Lantus) 8 unit SC HS [facility] Last Admin: 12/09/16 21:12 Dose: 8 units Lisinopril (Zestril) 5 mg PO DAILY [facility] Last Admin: 12/09/16 09:52 Dose: 5 mg Metoprolol Tartrate (Lopressor) 50 mg PO BID [facility] Last Admin: 12/09/16 17:27 Dose: 50 mg Rosuvastatin Calcium (Crestor) 10 mg PO HS [facility] Last Admin: 12/09/16 21:20 Dose: 10 mg - Labs Labs: 12/10/16 07:01 12/10/16 07:01 PT 16.7 SECONDS (9.7-12.2) H 12/08/16 02:03 INR 1.5 12/08/16 02:03 APTT 34 SECONDS (21-34) 12/08/16 02:03 - Constitutional Appears: No Acute Distress - Head Exam Head Exam: ATRAUMATIC, NORMAL INSPECTION, NORMOCEPHALIC - Eye Exam Eye Exam: Normal appearance Pupil Exam: NORMAL ACCOMODATION - ENT Exam ENT Exam: Mucous Membranes Moist - Neck Exam Neck Exam: Full ROM, Normal Inspection - Respiratory Exam Respiratory Exam: Clear to Ausculation Bilateral, NORMAL BREATHING PATTERN. absent: Rales, Wheezes - Cardiovascular Exam Cardiovascular Exam: REGULAR RHYTHM, +S1, +S2. absent: Rubs, Murmur - GI/Abdominal Exam GI & Abdominal Exam: Soft, Normal Bowel Sounds. absent: Rigid, Tenderness, Mass , Rebound - Extremities Exam Extremities Exam: Normal Inspection, Pedal Edema (+ 1 pitting edema ). absent: Calf Tenderness - Neurological Exam Neurological Exam: Alert, Awake, CN II-XII Intact, Normal Gait, Oriented x3 - Psychiatric Exam Psychiatric exam: Normal Affect, Normal Mood - Skin Skin Exam: Dry, Intact, Normal Color, Warm Assessment and Plan - Assessment and Plan (Free Text) Assessment: This is a 61Y Male with PMH of medical non-compliance, DM and HTN admitted for 1) CHF 2) Uncontrolled DM 3) HTN Plan: - Continue to monitor I&O and daily weight - Continue Lasix, Lisinopril and Lopressor - Continue Crestor - Echo showed EF of 20% - Continue Insulin and BGM ACHS - Pt will need life vest and eventually biventricular ICD/pacer GI ppx: Pepcid DVT ppx: SCDs Case seen, reviewed and discussed with Dr. Miroslava Pickett PGY1 <Dewayne Colorado - Last Filed: 12/14/16 11:05> Objective - Vital Signs/Intake and Output Vital Signs (last 24 hours): Temp Pulse Resp BP Pulse Ox 97.7 F 83 20 92/65 L 97 12/13/16 15:33 12/13/16 15:33 12/13/16 15:33 12/13/16 15:33 12/13/16 15:33 - Labs Labs: 12/13/16 08:02 12/13/16 08:02 PT 16.7 SECONDS (9.7-12.2) H 12/08/16 02:03 INR 1.5 12/08/16 02:03 APTT 34 SECONDS (21-34) 12/08/16 02:03 Assessment and Plan (1) Chest pain Status: Acute (2) Chronic congestive heart failure Status: Acute (3) Heart failure, systolic, with acute decompensation Status: Acute (4) Tachycardia Status: Acute Attending/Attestation - Attestation I have personally seen and examined this patient.: Yes I have fully participated in the care of the patient.: Yes I have reviewed all pertinent clinical information, including history, physical exam and plan: Yes Notes (Text): 12/14/16 11:05 continue diuresis for cath vest vs icd
[2016-12-10] MEDS ORDERED: Potassium Chloride 10 mEq 100 ML IVPB ONE (10:00)
[2016-12-10] MEDS: Potassium Chloride 20 mEq ER Tab PO SCH (10:31)
[2016-12-10] MEDS ORDERED: Sodium Chloride 0.9% 1,000 ML IV SCH (11:00)
[2016-12-10] MEDS ORDERED: DEXTROSE 5% IV SCH (11:00)
[2016-12-10] MEDS ORDERED: ACETYLCYSTEINE IV SCH (11:00)
[2016-12-10] MEDS ORDERED: WATER IV SCH (11:00)
[2016-12-10] MEDS: Acetylcysteine 20% Inhal Soln (4ml) PO SCH ×2 (17:24→21:10)
--- NOTE | 2016-12-10 21:00 | CP.PCM.PN ---
<Devin Huertas - Last Filed: 12/10/16 21:00> Subjective - Date & Time of Evaluation Date of Evaluation: 12/10/16 Time of Evaluation: 07:25 - Subjective Subjective: PGY1 Medicine Note Patient seen and examined at bedside. No overnight events per nursing. Patient reports SOB has improved since admission. Confirmed that patient has experienced intermittent chest pain for past 1 month, described as a tearing feeling on his chest wall, lasting 1/2 hour, radiating to jaw, neck and upper back (patient denied a history of chest pain on admission). Denies f/c, headache , blurry vision, current chest pain, palpitations, SOB, abdominal pain, n/v, d/c , dysuria, urinary frequency, or any other acute complaints. Objective - Vital Signs/Intake and Output Vital Signs (last 24 hours): Temp Pulse Resp BP Pulse Ox 97.7 F 79 20 95/69 L 97 12/10/16 15:58 12/10/16 15:58 12/10/16 15:58 12/10/16 15:58 12/10/16 15:58 Intake and Output: 12/10/16 12/11/16 18:59 06:59 Intake Total 500 Balance 500 - Medications Medications: Current Medications Acetylcysteine (Acetylcysteine 20%) 6 ml PO Q12 [facility] Stop: 12/11/16 22:01 Last Admin: 12/10/16 17:24 Dose: Not Given Aspirin (Aspirin Chewable) 81 mg PO DAILY [facility] Last Admin: 12/10/16 09:37 Dose: 81 mg Docusate Sodium (Colace) 100 mg PO BID [facility] Last Admin: 12/10/16 09:38 Dose: 100 mg Famotidine (Pepcid) 20 mg PO DAILY [facility] Last Admin: 12/10/16 09:37 Dose: 20 mg Furosemide (Lasix) 40 mg IVP Q12 [facility] Last Admin: 12/10/16 09:39 Dose: 40 mg Glipizide (Glucotrol) 5 mg PO ACB [facility] Last Admin: 12/10/16 08:26 Dose: 5 mg Heparin Sodium (Porcine) (Heparin) 5,000 units SC Q8 [facility] Last Admin: 12/10/16 13:16 Dose: 5,000 units Sodium Chloride (Sodium Chloride 0.9%) 1,000 mls @ 75 mls/hr IV .[id number] [facility] Last Admin: 12/10/16 12:27 Dose: 75 mls/hr Insulin Aspart (Novolog) 0 unit SC ACHS [facility] PRN Reason: Protocol Last Admin: 12/10/16 17:25 Dose: Not Given Insulin Glargine (Lantus) 8 unit SC HS [facility] Last Admin: 12/09/16 21:12 Dose: 8 units Lisinopril (Zestril) 5 mg PO DAILY [facility] Last Admin: 12/10/16 09:37 Dose: 5 mg Metoprolol Tartrate (Lopressor) 50 mg PO BID [facility] Last Admin: 12/10/16 17:32 Dose: 50 mg Potassium Chloride (K-Dur 20 Meq Er Tab) 40 meq PO DAILY [facility] Last Admin: 12/10/16 10:31 Dose: 40 meq Rosuvastatin Calcium (Crestor) 10 mg PO [facility] Last Admin: 12/09/16 21:20 Dose: 10 mg - Labs Labs: 12/10/16 07:01 12/10/16 07:01 PT 16.7 SECONDS (9.7-12.2) H 12/08/16 02:03 INR 1.5 12/08/16 02:03 APTT 34 SECONDS (21-34) 12/08/16 02:03 - Additional Findings Additional findings: - Constitutional Appears: Well, No Acute Distress - Head Exam Head Exam: NORMAL INSPECTION - Eye Exam Eye Exam: Normal appearance. absent: Scleral icterus - ENT Exam ENT Exam: Mucous Membranes Moist - Neck Exam Neck Exam: Normal Inspection - Respiratory Exam Additional comments: mild bilateral basal rales; - Cardiovascular Exam Cardiovascular Exam: Irregular Rhythm, +S1, +S2 - GI/Abdominal Exam GI & Abdominal Exam: Soft. absent: Distended, Tenderness - Extremities Exam Additional comments: Mild bilateral lower leg edema - Neurological Exam Neurological Exam: Alert, Awake - Psychiatric Exam Psychiatric exam: Normal Affect, Normal Mood - Skin Skin Exam: Warm. absent: Cyanosis Assessment and Plan - Assessment and Plan (Free Text) Assessment: (1) Diabetes Assessment & Plan: 12/10: Hold Lantus Better controlled after starting lantus 8 u last night; A1C 10.1 despite being on metformin 500 mg bid and glipizide 10 mg daily; gives history of adequately controlled fasting blood sugar; glipizide at 5 mg today; continue to hold metformin for now (in case cath being planned); Status: Acute (2) Heart failure, systolic, with acute decompensation Assessment & Plan: 12/10: Echo showed EF of 20%; Pt will need life vest and eventually biventricular ICD/pacer; plan for Cardiac cath 12/11 at 14:00. NPO after breakfast on 12/11. Administered Acetylcysteine 1200mg (6mL) PO Q12 [facility] Still with evidence of volume overload on exam although CXR improved; will continue lasix IV 40 mg q12h; continue metoprolol and lisinopril; may need cath to look for ischemic etiology; will f/u with cardio, awaiting lifevest (being setup by EP cardio); Status: Acute (3) Leukocytosis Assessment & Plan: 12/10: blood culture negative; nares mrsa negative; WBC WNL Unclear etiology on initial presentation; persistence due to steroids; no evidence of infection; monitor; Status: Acute (4) Tachycardia Assessment & Plan: 12/10: HR WNL, monitor Despite low dose metoprolol; will repeat ECG, increase metoprolol to 50 mg bid; Status: Acute (5) Chest pain Assessment & Plan: Unclear etiology; troponin negative; possibly unstable angina; f/u with cardio; continue ASA 81, start crestor 10 mg, lipid panel WNL <Titi Carlos - Last Filed: 12/11/16 10:50> Objective - Vital Signs/Intake and Output Vital Signs (last 24 hours): Temp Pulse Resp BP Pulse Ox 98.2 F 98 H 20 119/73 97 12/11/16 07:29 12/11/16 07:29 12/11/16 07:29 12/11/16 09:49 12/11/16 07:29 Intake and Output: 12/11/16 12/11/16 06:59 18:59 Intake Total 290 Balance 290 - Medications Medications: Current Medications Acetylcysteine (Acetylcysteine 20%) 6 ml PO Q12 [facility] Stop: 12/11/16 22:01 Last Admin: 12/10/16 21:10 Dose: 6 ml Aspirin (Aspirin Chewable) 81 mg PO DAILY [facility] Last Admin: 12/11/16 09:47 Dose: 81 mg Docusate Sodium (Colace) 100 mg PO BID [facility] Last Admin: 12/11/16 09:47 Dose: 100 mg Famotidine (Pepcid) 20 mg PO DAILY [facility] Last Admin: 12/11/16 09:47 Dose: 20 mg Furosemide (Lasix) 40 mg IVP Q12 [facility] Last Admin: 12/11/16 09:49 Dose: 40 mg Glipizide (Glucotrol) 5 mg PO ACB [facility] Last Admin: 12/11/16 10:25 Dose: Not Given Sodium Chloride (Sodium Chloride 0.9%) 1,000 mls @ 75 mls/hr IV .[id number] [facility] Last Admin: 12/10/16 12:27 Dose: 75 mls/hr Insulin Aspart (Novolog) 0 unit SC ACHS [facility] PRN Reason: Protocol Last Admin: 12/11/16 08:30 Dose: 1 unit Insulin Glargine (Lantus) 8 unit SC HS [facility] Last Admin: 12/09/16 21:12 Dose: 8 units Lisinopril (Zestril) 5 mg PO DAILY [facility] Last Admin: 12/10/16 09:37 Dose: 5 mg Metoprolol Tartrate (Lopressor) 50 mg PO BID [facility] Last Admin: 12/11/16 09:49 Dose: 50 mg Potassium Chloride (K-Dur 20 Meq Er Tab) 40 meq PO DAILY [facility] Last Admin: 12/11/16 09:49 Dose: 40 meq Rosuvastatin Calcium (Crestor) 10 mg PO HS [facility] Last Admin: 12/10/16 21:12 Dose: 10 mg - Labs Labs: 12/11/16 07:11 12/11/16 07:11 PT 16.7 SECONDS (9.7-12.2) H 12/08/16 02:03 INR 1.5 12/08/16 02:03 APTT 34 SECONDS (21-34) 12/08/16 02:03 Assessment and Plan (1) Diabetes Status: Acute (2) Heart failure, systolic, with acute decompensation Status: Acute (3) Leukocytosis Status: Acute (4) Tachycardia Status: Acute (5) Chest pain Status: Acute Attending/Attestation - Attestation I have personally seen and examined this patient.: Yes I have fully participated in the care of the patient.: Yes I have reviewed all pertinent clinical information, including history, physical exam and plan: Yes Notes (Text): Patient admitted with acute decompensated systolic heart failure in the setting of intermittent chest pain since past ~1 month; Was to undergo cardiac cath today but postponed till tomorrow due to technical issues; Still mildly tachycardic even after increasing metoprolol to 50 mg bid, may need to increase further; continue ELIZABETH inhibitor for systolic dysfunction; On lasix 40 mg IV q12h, will hold dose tonight and start gentle IVF as well as NAC to prevent contrast induced nephropathy; DM better controlled after restarting glipizide 5 mg yesterday (was on 10 mg at home as well at metformin 500 bid); Dispo: After cath, patient needs lifevest before d/c.
--- NOTE | 2016-12-10 22:17 | CARD ---
APPROVED REPORT EXAM: Two-dimensional and M-mode echocardiogram with Doppler and color Doppler. Other Information Quality : GoodRhythm : NSR INDICATION Pleural Effusion Congestive Heart Failure RISK FACTORS Hypertension Diabetes M-Mode DIMENSIONS RVDd1.69 (2.1-3.2cm)Left Atrium (MM)4.08 (2.5-4.0cm) IVSd0.59 (0.7-1.1cm)Aortic Root2.39 (2.2-3.7cm) LVDd6.12 (4.0-5.6cm)Aortic Cusp Exc.1.90 (1.5-2.0cm) PWd1.18 (0.7-1.1cm)FS (%) 9 % LVDs5.57 (2.0-3.8cm)LVEF (%)20 (>50%) Aortic Valve AoV Peak Agpwuibb40.6cm/Coleman Peak GR.4mmHgAI P 1/2 [id number] Mitral Valve MV E Hhagkmgo01.0cm/sMV A Fxsmqnfs74.9cm/sE/A ratio2.3 TDI E/Lateral E'0.0E/Medial E'0.0 Tricuspid Valve TR Peak Sipsknys648yo/sTR Peak Gr.[id number] LEFT VENTRICLE The Left Ventricle is moderately dilated. There is normal left ventricular wall thickness. Left ventricle systolic function is severely impaired. The Ejection Fraction is 20-25%. There is global hypokinesis of the left ventricle. The left ventricular diastolic function is normal. RIGHT VENTRICLE The right ventricle is moderately dilated. There is normal right ventricular wall thickness. Systolic function is severely reduced. ATRIA The left atrium is mildly dilated. The right atrium is mildly dilated. The interatrial septum is intact with no evidence for an atrial septal defect. AORTIC VALVE The aortic valve is mildly thickened but opens well. There is mild aortic regurgitation. There is no aortic valvular stenosis. MITRAL VALVE The mitral valve is normal in structure. There is no evidence of mitral valve prolapse. There is no mitral valve stenosis. Mitral regurgitation is mild. TRICUSPID VALVE The tricuspid valve is normal in structure. There is mild tricuspid regurgitation. PULMONIC VALVE The pulmonic valve is not well visualized. There is mild pulmonic valvular regurgitation. GREAT VESSELS The aortic root is normal in size. PERICARDIAL EFFUSION There is no significant pericardial effusion. There is large left pleural effusion. <Conclusion> Left ventricle systolic function is severely impaired. The Ejection Fraction is 20-25%. There is mild aortic regurgitation. Mitral regurgitation is mild. There is mild tricuspid regurgitation. There is mild pulmonic valvular regurgitation. There is large left pleural effusion.
[2016-12-11 07:28] LABS: CHLORIDE 96 mmol/L (98-107); SODIUM 136 mmol/L (132-148)
[2016-12-11 07:29] LABS: POTASSIUM 3.7 mmol/L (3.6-5.2)
[2016-12-11 07:30] LABS: GFR AFRICAN-AMERICAN > 60
[2016-12-11 07:31] LABS: ALKALINE PHOSPHATASE 66 U/L (38-126); ALT/SGPT 43 U/L (21-72); AST/SGOT 25 U/L (17-59); BILIRUBIN,TOTAL 0.7 mg/dL (0.2-1.3); BLOOD UREA NITROGEN 28 mg/dL (9-20); CARBON DIOXIDE 26 mmol/L (22-30); GLUCOSE,RANDOM 137 mg/dL (75-110); PHOSPHOROUS 3.9 mg/dL (2.5-4.5)
[2016-12-11 07:32] LABS: CALCIUM 8.6 mg/dl (8.6-10.4); MAGNESIUM 1.8 mg/dL (1.6-2.3)
[2016-12-11 07:45] LABS: BASO % 0.4 % (0.0-2.0); EOS # 0.2 K/uL (0.0-0.7); HEMATOCRIT 41.4 % (35.0-51.0); LYMPH # 1.8 K/uL (1.0-4.3); LYMPH % 21.1 % (20.0-40.0); MEAN CELL VOLUME 88.4 fL (80.0-94.0); MEAN CORPUSCULAR HEMOGLOBIN 29.6 pg (27.0-31.0); MEAN CORPUSCULAR HGB CONC 33.5 g/dL (33.0-37.0); MEAN PLATELET VOLUME 10.8 fL (7.2-11.7); MONO # 0.9 K/uL (0.0-0.8); MONO % 10.5 % (0.0-10.0); NRBC % 0.1 % (0.0-2.0); RED CELL DISTRIBUTION WIDTH 13.5 % (11.5-14.5); WHITE BLOOD COUNT 8.7 K/uL (4.8-10.8)
--- NOTE | 2016-12-11 07:50 | CP.PCM.PN ---
<Devin Huertas - Last Filed: 12/11/16 20:21> Subjective - Date & Time of Evaluation Date of Evaluation: 12/11/16 Time of Evaluation: 07:30 - Subjective Subjective: PGY1 Medicine Note Patient seen and examined at bedside. No overnight events per nursing. Patient reports SOB has improved since admission, however intermittent chest pain persists. Patient went for cardiac cath today. Denies f/c, headache, blurry vision, palpitations, SOB, abdominal pain, n/v, d/c, dysuria, urinary frequency , or any other acute complaints. Objective - Vital Signs/Intake and Output Vital Signs (last 24 hours): Temp Pulse Resp BP Pulse Ox 98.2 F 98 H 20 117/52 L 97 12/11/16 07:29 12/11/16 07:29 12/11/16 07:29 12/11/16 07:29 12/11/16 07:29 Intake and Output: 12/11/16 12/11/16 06:59 18:59 Intake Total 290 Balance 290 - Medications Medications: Current Medications Acetylcysteine (Acetylcysteine 20%) 6 ml PO Q12 [facility] Stop: 12/11/16 22:01 Last Admin: 12/10/16 21:10 Dose: 6 ml Aspirin (Aspirin Chewable) 81 mg PO DAILY [facility] Last Admin: 12/10/16 09:37 Dose: 81 mg Docusate Sodium (Colace) 100 mg PO BID [facility] Last Admin: 12/10/16 21:10 Dose: Not Given Famotidine (Pepcid) 20 mg PO DAILY [facility] Last Admin: 12/10/16 09:37 Dose: 20 mg Furosemide (Lasix) 40 mg IVP Q12 [facility] Last Admin: 12/10/16 21:12 Dose: 40 mg Glipizide (Glucotrol) 5 mg PO ACB [facility] Last Admin: 12/10/16 08:26 Dose: 5 mg Sodium Chloride (Sodium Chloride 0.9%) 1,000 mls @ 75 mls/hr IV .[id number] [facility] Last Admin: 12/10/16 12:27 Dose: 75 mls/hr Insulin Aspart (Novolog) 0 unit SC ACHS [facility] PRN Reason: Protocol Last Admin: 12/10/16 21:50 Dose: 2 unit Insulin Glargine (Lantus) 8 unit SC HS [facility] Last Admin: 12/09/16 21:12 Dose: 8 units Lisinopril (Zestril) 5 mg PO DAILY [facility] Last Admin: 12/10/16 09:37 Dose: 5 mg Metoprolol Tartrate (Lopressor) 50 mg PO BID [facility] Last Admin: 12/10/16 17:32 Dose: 50 mg Potassium Chloride (K-Dur 20 Meq Er Tab) 40 meq PO DAILY [facility] Last Admin: 12/10/16 10:31 Dose: 40 meq Rosuvastatin Calcium (Crestor) 10 mg PO [facility] Last Admin: 12/10/16 21:12 Dose: 10 mg - Labs Labs: 12/11/16 07:11 12/11/16 07:11 PT 16.7 SECONDS (9.7-12.2) H 12/08/16 02:03 INR 1.5 12/08/16 02:03 APTT 34 SECONDS (21-34) 12/08/16 02:03 - Additional Findings Additional findings: - Constitutional Appears: Well, No Acute Distress - Head Exam Head Exam: NORMAL INSPECTION - Eye Exam Eye Exam: Normal appearance. absent: Scleral icterus - ENT Exam ENT Exam: Mucous Membranes Moist - Neck Exam Neck Exam: Normal Inspection - Respiratory Exam Respiratory Exam: Clear to Ausculation Bilateral, NORMAL BREATHING PATTERN. absent: Rales, Rhonchi, Wheezes - Cardiovascular Exam Cardiovascular Exam: Irregular Rhythm, +S1, +S2 - GI/Abdominal Exam GI & Abdominal Exam: Soft. absent: Distended, Tenderness - Extremities Exam Additional comments: Mild bilateral lower leg edema - Neurological Exam Neurological Exam: Alert, Awake - Psychiatric Exam Psychiatric exam: Normal Affect, Normal Mood - Skin Skin Exam: Dry, Normal Color, Warm. absent: Cyanosis Assessment and Plan - Assessment and Plan (Free Text) Assessment: (1) Diabetes Assessment & Plan: 12/11: resume lantus. 12/10: Hold Lantus Better controlled after starting lantus 8 u last night; A1C 10.1 despite being on metformin 500 mg bid and glipizide 10 mg daily; gives history of adequately controlled fasting blood sugar; glipizide at 5 mg today; continue to hold metformin for now (in case cath being planned); Status: Acute (2) Heart failure, systolic, with acute decompensation Assessment & Plan: 12/12: NPO AM for biventricular ICD on 12/12. Vivian in chart. Well's Criteria ( DVT) = 0; NATASHA Score = 2 12/11: Patient s/p cath. Severe Triple vessel disease. Small vessel disease; Severe Cardiomyopathy (EF 10-15%); Not ideal candidate either for surgery or PCI ; Dr. Nunez recommends aggressive medical therapy for CHF and CAD; Discussed with the patient and his . 12/10: Echo showed EF of 20%; Pt will need life vest and eventually biventricular ICD/pacer; plan for Cardiac cath 12/11 at 14:00. NPO after breakfast on 12/11. Administered Acetylcysteine 1200mg (6mL) PO Q12 [facility] Still with evidence of volume overload on exam although CXR improved; will continue lasix IV 40 mg q12h; continue metoprolol and lisinopril; may need cath to look for ischemic etiology; will f/u with cardio, awaiting lifevest (being setup by EP cardio); Status: Acute (3) Leukocytosis Assessment & Plan: 12/10-12/11: blood culture negative; nares mrsa negative; WBC WNL Unclear etiology on initial presentation; persistence due to steroids; no evidence of infection; monitor; Status: Acute (4) Tachycardia Assessment & Plan: 12/10-12/11: HR WNL, monitor Despite low dose metoprolol; will repeat ECG, increase metoprolol to 50 mg bid; Status: Acute (5) Chest pain Assessment & Plan: Unclear etiology; troponin negative; possibly unstable angina; continue ASA 81, crestor 10 mg, lipid panel WNL (6) Prophylaxis Pepcid 20mg PO daily 12/12: HOLD Lovenox 40mg SC daily for procedure Colace 100mg PO BID constipation <Varsha Beth V - Last Filed: 12/12/16 15:36> Objective - Vital Signs/Intake and Output Vital Signs (last 24 hours): Temp Pulse Resp BP Pulse Ox 98.5 F 85 20 112/84 96 12/12/16 08:00 12/12/16 08:00 12/12/16 08:00 12/12/16 08:00 12/12/16 08:00 Intake and Output: 12/12/16 12/12/16 06:59 18:59 Intake Total 250 Balance 250 - Medications Medications: Current Medications Aspirin (Aspirin Chewable) 81 mg PO DAILY [facility] Last Admin: 12/12/16 10:06 Dose: Not Given Docusate Sodium (Colace) 100 mg PO BID [facility] Last Admin: 12/12/16 10:06 Dose: Not Given Enoxaparin Sodium (Lovenox) 40 mg SC DAILY [facility] Famotidine (Pepcid) 20 mg PO DAILY [facility] Last Admin: 12/12/16 10:07 Dose: Not Given Furosemide (Lasix) 40 mg IVP Q12 [facility] Last Admin: 12/12/16 10:06 Dose: Not Given Insulin Aspart (Novolog) 0 unit SC ACHS [facility] PRN Reason: Protocol Last Admin: 12/12/16 08:18 Dose: Not Given Insulin Glargine (Lantus) 10 unit SC [facility] Last Admin: 12/11/16 21:25 Dose: 10 unit Lisinopril (Zestril) 5 mg PO DAILY [facility] Last Admin: 12/12/16 10:07 Dose: Not Given Metoprolol Tartrate (Lopressor) 50 mg PO BID [facility] Last Admin: 12/12/16 10:07 Dose: Not Given Rosuvastatin Calcium (Crestor) 10 mg PO HS [facility] Last Admin: 12/11/16 21:26 Dose: 10 mg - Labs Labs: 12/12/16 07:03 12/12/16 07:03 PT 16.7 SECONDS (9.7-12.2) H 12/08/16 02:03 INR 1.5 12/08/16 02:03 APTT 34 SECONDS (21-34) 12/08/16 02:03 Attending/Attestation - Attestation I have personally seen and examined this patient.: Yes I have fully participated in the care of the patient.: Yes I have reviewed all pertinent clinical information, including history, physical exam and plan: Yes Notes (Text): This is late computer entry for 12/11/16. Patient seen, examined and case discussed with day-time resident. Patient seen with family at bedside, prior to catherization. Patient denied acute complaints. Patient wearing Lifevest at bedside. Patient completed cardiac catherization, severe triple vessel disease, not a candidate for surgery or PCI. Patient to be setup for biventricular ICD tomorrow per EPS. Patient given sliding scale coverage for uncontrolled sugars while NPO and Lantus resumed post procedure. (1) Heart failure, systolic, with acute decompensation Assessment & Plan: * Cardiology (Dr. Nunez) on board-->help appreciated * Cardiology (Dr. [place]) on board-->help appreciated * Echocardiogram (12/10/16): left ventricle systolic function is severely impaired, ejection fraction is 20-25%, mild aortic regurgitation, mitral regurgitation is mild, mild tricupside regurgitation, mild pulmonic valvular regurgitation. large left pleural effusion * Cardiac catherization (12/11/16): severe triple vessle disease, small vessel disease, severe cardiomyopathy EF; 10-15% * Cardiology (Dr. Nunez) on board-->help appreciated * Cardiology (Dr. [place]) on board-->help appreciated * Patient is not ideal candidate for either for surgery or PCI; recommend aggressive medical for CHF and CAD, per cardiology * Aspirin 81mg PO daily * Lisinopril 5mg PO daily * Lopressor 50mg PO bid * Crestor 10mg PO qHS * Pt wearing life vest and to be setup for biventricular ICD/pacer 12/12/16 * Lasix 40mg IV Q 12hours (2) Coronary Artery Disease * Cardiac catherization (12/11/16): severe triple vessle disease, small vessel disease, severe cardiomyopathy EF; 10-15% * Cardiology (Dr. Nunez) on board-->help appreciated * Cardiology (Dr. [place]) on board-->help appreciated * Patient is not ideal candidate for either for surgery or PCI; recommend aggressive medical for CHF and CAD, per cardiology * Aspirin 81mg PO daily * Lisinopril 5mg PO daily * Lopressor 50mg PO bid * Crestor 10mg PO qHS (3) Diabetes * Uncontrolled * Lantus held prior to anticipated cardiac catherization today. * Patient is off Metformin secondary to prevention exacerbation of kidney prior to cardiac catherization * Patient is on Glipizide 5mg PO q daily * Patient placed on D51/2NS gentle Iv hydration to provent hypoglycemia prior to procedure * Patient is on novolog sliding scale * patient to resume Lantus 10 units after cardiac catherization * Patient not eligible to resume Metformin until 48-72 hours post procedure 12/14 (4) Leukocytosis Assessment & Plan: * Normalized * Afebrile * 12/07 Blood culture: no growth X4 days * 12/08/16: MRSA not detected X2 * Chest xray (12/09/16): bilateral small pleural effusion, left greater than right. mild congestive change (5) Elevated d-dimer Assessment & Plan: * CT Angio 12/08/16: No evidence of thoracic or abdominal aortic aneurysm or dissection. no gross evidence of pulmonary embolism; bilateral patchy alveolar opacities with moderate bilateral pleural effusion, cardiomegaly. Wells Criteria:0, low suspicion for PE (6) Chest pain Assessment & Plan: Please refer to Coronary Artery disease, congestive heart failure, and elevated d-dimer (7) Prophylaxis * Pepcid 20mg PO daily * Held Lovenox 40mg SC daily preoperative procedure * Colace 100mg PO BID constipation * Lifevest: sudden cardiac prophylaxis
[2016-12-11] MEDS: (Novolog) Insulin Aspart, Recombinant 100 u/ml 10 ml vial SC SCH ×4 (08:30→21:25)
[2016-12-11] MEDS: Potassium Chloride 20 mEq ER Tab PO SCH (09:49)
[2016-12-11] MEDS: Acetylcysteine 20% Inhal Soln (4ml) PO SCH (11:08)
[2016-12-11] MEDS ORDERED: (Novolog) Insulin Aspart, Recombinant 100 u/ml 10 ml vial SC ONE (11:27)
[2016-12-11] MEDS ORDERED: Dextrose 5%/0.9% NS 1,000 ML IV SCH (11:30)
--- NOTE | 2016-12-11 12:33 | CP.PCM.PN ---
<Lay Pickett - Last Filed: 12/11/16 13:21> Subjective - Date & Time of Evaluation Date of Evaluation: 12/11/16 Time of Evaluation: 12:30 - Subjective Subjective: Cardiology Progress Note for Dr. [place] Patient seen and examined at bedside. There were no acute overnight events. Patient reports still having intermittent chest pain. He denies having SOB, vision changes, n/v/d, numbness/tingling, dysuria, hematuria, fever or chills. Objective - Vital Signs/Intake and Output Vital Signs (last 24 hours): Temp Pulse Resp BP Pulse Ox 98.2 F 98 H 20 119/73 97 12/11/16 07:29 12/11/16 07:29 12/11/16 07:29 12/11/16 09:49 12/11/16 07:29 Intake and Output: 12/11/16 12/11/16 06:59 18:59 Intake Total 290 Balance 290 - Medications Medications: Current Medications Acetylcysteine (Acetylcysteine 20%) 6 ml PO Q12 [facility] Stop: 12/11/16 22:01 Last Admin: 12/11/16 11:08 Dose: 6 ml Aspirin (Aspirin Chewable) 81 mg PO DAILY [facility] Last Admin: 12/11/16 09:47 Dose: 81 mg Docusate Sodium (Colace) 100 mg PO BID [facility] Last Admin: 12/11/16 09:47 Dose: 100 mg Famotidine (Pepcid) 20 mg PO DAILY [facility] Last Admin: 12/11/16 09:47 Dose: 20 mg Furosemide (Lasix) 40 mg IVP Q12 [facility] Last Admin: 12/11/16 09:49 Dose: 40 mg Glipizide (Glucotrol) 5 mg PO ACB [facility] Last Admin: 12/11/16 10:25 Dose: Not Given Dextrose/Sodium Chloride (Dextrose 5%/0.9% Ns 1000 Ml) 1,000 mls @ 60 mls/hr IV .[id number] [facility] Last Admin: 12/11/16 12:10 Dose: 60 mls/hr Insulin Aspart (Novolog) 0 unit SC ACHS [facility] PRN Reason: Protocol Last Admin: 12/11/16 11:26 Dose: Not Given Insulin Glargine (Lantus) 8 unit SC HS [facility] Last Admin: 12/09/16 21:12 Dose: 8 units Lisinopril (Zestril) 5 mg PO DAILY [facility] Last Admin: 12/11/16 11:08 Dose: 5 mg Metoprolol Tartrate (Lopressor) 50 mg PO BID [facility] Last Admin: 12/11/16 09:49 Dose: 50 mg Potassium Chloride (K-Dur 20 Meq Er Tab) 40 meq PO DAILY [facility] Last Admin: 12/11/16 09:49 Dose: 40 meq Rosuvastatin Calcium (Crestor) 10 mg PO HS [facility] Last Admin: 12/10/16 21:12 Dose: 10 mg - Labs Labs: 12/11/16 07:11 12/11/16 07:11 PT 16.7 SECONDS (9.7-12.2) H 12/08/16 02:03 INR 1.5 12/08/16 02:03 APTT 34 SECONDS (21-34) 12/08/16 02:03 - Constitutional Appears: No Acute Distress - Head Exam Head Exam: ATRAUMATIC, NORMAL INSPECTION, NORMOCEPHALIC - Eye Exam Eye Exam: Normal appearance Pupil Exam: NORMAL ACCOMODATION - ENT Exam ENT Exam: Mucous Membranes Moist - Neck Exam Neck Exam: Full ROM - Respiratory Exam Respiratory Exam: Clear to Ausculation Bilateral, NORMAL BREATHING PATTERN. absent: Rales, Rhonchi, Wheezes - Cardiovascular Exam Cardiovascular Exam: REGULAR RHYTHM, +S1, +S2. absent: Gallop, Rubs, Murmur - GI/Abdominal Exam GI & Abdominal Exam: Soft, Normal Bowel Sounds. absent: Tenderness, Mass, Rebound - Extremities Exam Extremities Exam: Normal Inspection. absent: Calf Tenderness, Pedal Edema - Neurological Exam Neurological Exam: Alert, Awake, CN II-XII Intact, Normal Gait - Psychiatric Exam Psychiatric exam: Normal Affect, Normal Mood - Skin Skin Exam: Dry, Normal Color, Warm Assessment and Plan - Assessment and Plan (Free Text) Assessment: This is a 61Y Male with PMH of medical non-compliance, DM and HTN admitted for 1) Severe left ventricular systolic dysfunction with cardiomyopathy 2) CHF 3) Uncontrolled DM 4) HTN Plan: - Echo showed: EF 20-25%, severe LV systolic dysfunction, large left pleural effusion, mild regurgitation of mitral, tricuspid, aortic and pulmonic valves - Pt will have cardiac cath today - Pt received life vest yesterday - Pt may need biventricular ICD and Pacer in the future - Continue Crestor and ASA - Continue Lopressor, Lisinopril, and Lasix with K-dur - Continue to monitor blood glucose and insulin GI ppx: Pepcid DVT ppx: SCDs Case seen, reviewed and discussed with Dr. Miroslava Pickett PGY1 <Dewayne Colorado - Last Filed: 12/14/16 11:04> Objective - Vital Signs/Intake and Output Vital Signs (last 24 hours): Temp Pulse Resp BP Pulse Ox 97.7 F 83 20 92/65 L 97 12/13/16 15:33 12/13/16 15:33 12/13/16 15:33 12/13/16 15:33 12/13/16 15:33 - Labs Labs: 12/13/16 08:02 12/13/16 08:02 PT 16.7 SECONDS (9.7-12.2) H 12/08/16 02:03 INR 1.5 12/08/16 02:03 APTT 34 SECONDS (21-34) 12/08/16 02:03 Assessment and Plan (1) Chest pain Status: Acute (2) Chronic congestive heart failure Status: Acute (3) Heart failure, systolic, with acute decompensation Status: Acute (4) Tachycardia Status: Acute Attending/Attestation - Attestation I have personally seen and examined this patient.: Yes I have fully participated in the care of the patient.: Yes I have reviewed all pertinent clinical information, including history, physical exam and plan: Yes Notes (Text): 12/14/16 11:04 for cardiac cath today
[2016-12-11] MEDS ORDERED: Midazolam 2 MG/2 ML VIAL ONE (14:55)
--- NOTE | 2016-12-11 16:27 | CP.PCM.PN ---
Subjective - Date & Time of Evaluation Date of Evaluation: 12/11/16 Time of Evaluation: 16:24 - Subjective Subjective: Patient s/p Cath Severe Triple vessel disease. Small vessel disease Severe Cardiomyopathy (EF 10-15%) Not ideal candidate either for surgery or PCI Recommend aggressive medical therapy for CHF and CAD Discussed with the patient and his Objective - Vital Signs/Intake and Output Vital Signs (last 24 hours): Temp Pulse Resp BP Pulse Ox 97.3 F L 77 18 98/58 L 98 12/11/16 12:30 12/11/16 12:30 12/11/16 12:30 12/11/16 12:30 12/11/16 12:30 - Medications Medications: Current Medications Acetylcysteine (Acetylcysteine 20%) 6 ml PO Q12 [facility] Stop: 12/11/16 22:01 Last Admin: 12/11/16 11:08 Dose: 6 ml Aspirin (Aspirin Chewable) 81 mg PO DAILY [facility] Last Admin: 12/11/16 09:47 Dose: 81 mg Docusate Sodium (Colace) 100 mg PO BID [facility] Last Admin: 12/11/16 09:47 Dose: 100 mg Famotidine (Pepcid) 20 mg PO DAILY [facility] Last Admin: 12/11/16 09:47 Dose: 20 mg Furosemide (Lasix) 40 mg IVP Q12 [facility] Last Admin: 12/11/16 09:49 Dose: 40 mg Glipizide (Glucotrol) 5 mg PO ACB [facility] Last Admin: 12/11/16 10:25 Dose: Not Given Dextrose/Sodium Chloride (Dextrose 5%/0.9% Ns 1000 Ml) 1,000 mls @ 60 mls/hr IV .[id number] [facility] Last Admin: 12/11/16 12:10 Dose: 60 mls/hr Insulin Aspart (Novolog) 0 unit SC ACHS [facility] PRN Reason: Protocol Last Admin: 12/11/16 11:26 Dose: Not Given Insulin Glargine (Lantus) 8 unit SC HS [facility] Last Admin: 12/09/16 21:12 Dose: 8 units Lisinopril (Zestril) 5 mg PO DAILY [facility] Last Admin: 12/11/16 11:08 Dose: 5 mg Metoprolol Tartrate (Lopressor) 50 mg PO BID [facility] Last Admin: 03/28/17 09:49 Dose: 50 mg Potassium Chloride (K-Dur 20 Meq Er Tab) 40 meq PO DAILY [facility] Last Admin: 12/11/16 09:49 Dose: 40 meq Rosuvastatin Calcium (Crestor) 10 mg PO HS [facility] Last Admin: 12/10/16 21:12 Dose: 10 mg - Labs Labs: PT 16.7 SECONDS (9.7-12.2) H 12/08/16 02:03 INR 1.5 12/08/16 02:03 APTT 34 SECONDS (21-34) 12/08/16 02:03
[2016-12-11] MEDS: (Lantus) Insulin Glargine, Recombinant SC SCH (21:25)
[2016-12-12 07:21] LABS: BASO % 0.3 % (0.0-2.0); EOS # 0.2 K/uL (0.0-0.7); HEMATOCRIT 41.1 % (35.0-51.0); LYMPH # 1.4 K/uL (1.0-4.3); LYMPH % 17.1 % (20.0-40.0); MEAN CELL VOLUME 88.1 fL (80.0-94.0); MEAN CORPUSCULAR HEMOGLOBIN 29.6 pg (27.0-31.0); MEAN CORPUSCULAR HGB CONC 33.5 g/dL (33.0-37.0); MEAN PLATELET VOLUME 10.5 fL (7.2-11.7); MONO # 0.9 K/uL (0.0-0.8); MONO % 10.6 % (0.0-10.0); NRBC % 0.1 % (0.0-2.0); RED CELL DISTRIBUTION WIDTH 13.6 % (11.5-14.5); WHITE BLOOD COUNT 8.4 K/uL (4.8-10.8)
[2016-12-12 07:27] LABS: CHLORIDE 97 mmol/L (98-107); SODIUM 137 mmol/L (132-148)
[2016-12-12 07:28] LABS: POTASSIUM 3.7 mmol/L (3.6-5.2)
[2016-12-12 07:29] LABS: GFR AFRICAN-AMERICAN > 60
[2016-12-12 07:30] LABS: ALKALINE PHOSPHATASE 59 U/L (38-126); ALT/SGPT 37 U/L (21-72); AST/SGOT 17 U/L (17-59); BILIRUBIN,TOTAL 0.8 mg/dL (0.2-1.3); BLOOD UREA NITROGEN 25 mg/dL (9-20); CARBON DIOXIDE 28 mmol/L (22-30); GLUCOSE,RANDOM 180 mg/dL (75-110); TOTAL PROTEIN 6.2 g/dL (6.3-8.3)
[2016-12-12 07:31] LABS: CALCIUM 8.7 mg/dl (8.6-10.4); MAGNESIUM 1.9 mg/dL (1.6-2.3)
--- NOTE | 2016-12-12 07:32 | CP.PCM.PN ---
<Lay Pickett - Last Filed: 12/12/16 09:40> Subjective - Date & Time of Evaluation Date of Evaluation: 12/12/16 Time of Evaluation: 07:30 - Subjective Subjective: Cardiology Progress Note for Dr. [place] Patient seen and examined at bedside. As per nursing, there were no acute overnight events. Patient had a cath yesterday. There is no bleeding at the surgical site. He denies having pain, SOB, n/v/d, chest pain, numbness/tingling. Objective - Vital Signs/Intake and Output Vital Signs (last 24 hours): Temp Pulse Resp BP Pulse Ox 98.3 F 90 20 104/73 98 12/12/16 00:00 12/12/16 00:00 12/12/16 00:00 12/12/16 00:00 12/12/16 00:00 - Medications Medications: Current Medications Aspirin (Aspirin Chewable) 81 mg PO DAILY [facility] Last Admin: 12/11/16 09:47 Dose: 81 mg Docusate Sodium (Colace) 100 mg PO BID [facility] Last Admin: 12/11/16 17:46 Dose: 100 mg Enoxaparin Sodium (Lovenox) 40 mg SC DAILY [facility] Famotidine (Pepcid) 20 mg PO DAILY [facility] Last Admin: 12/11/16 09:47 Dose: 20 mg Furosemide (Lasix) 40 mg IVP Q12 [facility] Last Admin: 12/11/16 21:27 Dose: 40 mg Insulin Aspart (Novolog) 0 unit SC [facility] PRN Reason: Protocol Last Admin: 12/11/16 21:25 Dose: 3 unit Insulin Glargine (Lantus) 10 unit SC [facility] Last Admin: 12/11/16 21:25 Dose: 10 unit Lisinopril (Zestril) 5 mg PO DAILY [facility] Last Admin: 12/11/16 11:08 Dose: 5 mg Metoprolol Tartrate (Lopressor) 50 mg PO BID [facility] Last Admin: 12/11/16 17:46 Dose: 50 mg Rosuvastatin Calcium (Crestor) 10 mg PO HS [facility] Last Admin: 12/11/16 21:26 Dose: 10 mg - Labs Labs: PT 16.7 SECONDS (9.7-12.2) H 12/08/16 02:03 INR 1.5 12/08/16 02:03 APTT 34 SECONDS (21-34) 12/08/16 02:03 - Constitutional Appears: No Acute Distress - Head Exam Head Exam: ATRAUMATIC, NORMAL INSPECTION, NORMOCEPHALIC - Eye Exam Eye Exam: Normal appearance Pupil Exam: NORMAL ACCOMODATION - ENT Exam ENT Exam: Mucous Membranes Moist - Neck Exam Neck Exam: Full ROM - Respiratory Exam Respiratory Exam: Clear to Ausculation Bilateral, NORMAL BREATHING PATTERN. absent: Rales, Rhonchi, Wheezes - Cardiovascular Exam Cardiovascular Exam: REGULAR RHYTHM, +S1, +S2. absent: Gallop, Rubs, Murmur - GI/Abdominal Exam GI & Abdominal Exam: Soft, Normal Bowel Sounds. absent: Rigid, Tenderness, Mass , Rebound - Extremities Exam Extremities Exam: Normal Inspection. absent: Calf Tenderness, Pedal Edema - Neurological Exam Neurological Exam: Alert, Awake, CN II-XII Intact, Oriented x3 - Psychiatric Exam Psychiatric exam: Normal Affect, Normal Mood - Skin Skin Exam: Dry, Normal Color, Warm Assessment and Plan - Assessment and Plan (Free Text) Assessment: This is a 61Y Male with PMH of medical non-compliance, DM and HTN admitted for 1) Severe left ventricular systolic dysfunction with cardiomyopathy 2) Severe triple vessel disease 3) CHF 4) Uncontrolled DM 5) HTN Plan: - Cardiac cath showed severe triple vessel disease with severe cardiomyopathy- unoperable- patient will need to have aggressive medical management - Patient will be transferred to [facility] for biventricular pacer and ICD placement - Life vest is in place - Continue Crestor and ASA - Continue Lopressor, Lisinopril, and Lasix with K-dur - Continue to monitor blood glucose and insulin GI ppx: Pepcid DVT ppx: Lovenox Case seen, reviewed and discussed with Dr. Miroslava Pickett PGY1 <Dewayne Colorado - Last Filed: 12/14/16 11:04> Objective - Vital Signs/Intake and Output Vital Signs (last 24 hours): Temp Pulse Resp BP Pulse Ox 97.7 F 83 20 92/65 L 97 12/13/16 15:33 12/13/16 15:33 12/13/16 15:33 12/13/16 15:33 12/13/16 15:33 - Labs Labs: 12/13/16 08:02 12/13/16 08:02 PT 16.7 SECONDS (9.7-12.2) H 12/08/16 02:03 INR 1.5 12/08/16 02:03 APTT 34 SECONDS (21-34) 12/08/16 02:03 Assessment and Plan (1) Chest pain Status: Acute (2) Chronic congestive heart failure Status: Acute (3) Heart failure, systolic, with acute decompensation Status: Acute (4) Tachycardia Status: Acute Attending/Attestation - Attestation I have personally seen and examined this patient.: Yes I have fully participated in the care of the patient.: Yes I have reviewed all pertinent clinical information, including history, physical exam and plan: Yes Notes (Text): 12/14/16 11:03 follow up in [facility] ICD
--- NOTE | 2016-12-12 07:49 | CP.PCM.PN ---
<HelenedominiqueDevin - Last Filed: 12/12/16 15:39> Subjective - Date & Time of Evaluation Date of Evaluation: 12/12/16 Time of Evaluation: 07:15 - Subjective Subjective: PGY1 Medicine Note Patient seen and examined at bedside. No overnight events per nursing. Patient reports SOB has improved since admission, however intermittent chest pain persists. Cardiac cath from 12/12Patient went for cardiac cath today. Denies f/c , headache, blurry vision, palpitations, SOB, abdominal pain, n/v, d/c, dysuria , urinary frequency, or any other acute complaints. Objective - Vital Signs/Intake and Output Vital Signs (last 24 hours): Temp Pulse Resp BP Pulse Ox 98.3 F 90 20 104/73 98 12/12/16 00:00 12/12/16 00:00 12/12/16 00:00 12/12/16 00:00 12/12/16 00:00 Intake and Output: 12/12/16 12/12/16 06:59 18:59 Intake Total 250 Balance 250 - Medications Medications: Current Medications Aspirin (Aspirin Chewable) 81 mg PO DAILY [facility] Last Admin: 12/11/16 09:47 Dose: 81 mg Docusate Sodium (Colace) 100 mg PO BID [facility] Last Admin: 12/11/16 17:46 Dose: 100 mg Enoxaparin Sodium (Lovenox) 40 mg SC DAILY [facility] Famotidine (Pepcid) 20 mg PO DAILY [facility] Last Admin: 12/11/16 09:47 Dose: 20 mg Furosemide (Lasix) 40 mg IVP Q12 [facility] Last Admin: 12/11/16 21:27 Dose: 40 mg Insulin Aspart (Novolog) 0 unit SC [facility] PRN Reason: Protocol Last Admin: 12/11/16 21:25 Dose: 3 unit Insulin Glargine (Lantus) 10 unit SC HS [facility] Last Admin: 12/11/16 21:25 Dose: 10 unit Lisinopril (Zestril) 5 mg PO DAILY [facility] Last Admin: 12/11/16 11:08 Dose: 5 mg Metoprolol Tartrate (Lopressor) 50 mg PO BID [facility] Last Admin: 12/11/16 17:46 Dose: 50 mg Rosuvastatin Calcium (Crestor) 10 mg PO [facility] Last Admin: 12/11/16 21:26 Dose: 10 mg - Labs Labs: 12/12/16 07:03 12/12/16 07:03 PT 16.7 SECONDS (9.7-12.2) H 12/08/16 02:03 INR 1.5 12/08/16 02:03 APTT 34 SECONDS (21-34) 12/08/16 02:03 - Additional Findings Additional findings: - Constitutional Appears: Well, No Acute Distress - Head Exam Head Exam: NORMAL INSPECTION - Eye Exam Eye Exam: Normal appearance. absent: Scleral icterus - ENT Exam ENT Exam: Mucous Membranes Moist - Neck Exam Neck Exam: Normal Inspection - Respiratory Exam Respiratory Exam: Clear to Ausculation Bilateral, NORMAL BREATHING PATTERN. absent: Rales, Rhonchi, Wheezes - Cardiovascular Exam Cardiovascular Exam: Irregular Rhythm, +S1, +S2 - GI/Abdominal Exam GI & Abdominal Exam: Soft. absent: Distended, Tenderness - Extremities Exam Additional comments: Mild bilateral lower leg edema - Neurological Exam Neurological Exam: Alert, Awake - Psychiatric Exam Psychiatric exam: Normal Affect, Normal Mood - Skin Skin Exam: Dry, Normal Color, Warm. absent: Cyanosis Assessment and Plan - Assessment and Plan (Free Text) Assessment: (1) Diabetes Assessment & Plan: 12/11: resume lantus. 12/10: Hold Lantus Better controlled after starting lantus 8 u last night; A1C 10.1 despite being on metformin 500 mg bid and glipizide 10 mg daily; gives history of adequately controlled fasting blood sugar; glipizide at 5 mg today; continue to hold metformin for now (in case cath being planned); Status: Acute (2) Heart failure, systolic, with acute decompensation Assessment & Plan: 12/12: NPO AM for biventricular ICD on 12/12. Vivian in chart. Well's Criteria ( DVT) = 0; NATASHA Score = 2 12/11: Patient s/p cath. Severe Triple vessel disease. Small vessel disease; Severe Cardiomyopathy (EF 10-15%); Not ideal candidate either for surgery or PCI ; Dr. Nunez recommends aggressive medical therapy for CHF and CAD; Discussed with the patient and his . 12/10: Echo showed EF of 20%; Pt will need life vest and eventually biventricular ICD/pacer; plan for Cardiac cath 12/11 at 14:00. NPO after breakfast on 12/11. Administered Acetylcysteine 1200mg (6mL) PO Q12 [facility] Still with evidence of volume overload on exam although CXR improved; will continue lasix IV 40 mg q12h; continue metoprolol and lisinopril; may need cath to look for ischemic etiology; will f/u with cardio, awaiting lifevest (being setup by EP cardio); Status: Acute (3) Leukocytosis Assessment & Plan: 12/10-12/11: blood culture negative; nares mrsa negative; WBC WNL Unclear etiology on initial presentation; persistence due to steroids; no evidence of infection; monitor; Status: Acute (4) Tachycardia Assessment & Plan: 12/10-12/11: HR WNL, monitor Despite low dose metoprolol; will repeat ECG, increase metoprolol to 50 mg bid; Status: Acute (5) Chest pain Assessment & Plan: Unclear etiology; troponin negative; possibly unstable angina; continue ASA 81, crestor 10 mg, lipid panel WNL (6) Prophylaxis Pepcid 20mg PO daily 12/12: HOLD Lovenox 40mg SC daily for procedure Colace 100mg PO BID constipation <Varsha Beth V - Last Filed: 12/12/16 18:26> Objective - Vital Signs/Intake and Output Vital Signs (last 24 hours): Temp Pulse Resp BP Pulse Ox 97.8 F 88 20 113/83 95 12/12/16 17:50 12/12/16 17:50 12/12/16 17:50 12/12/16 17:50 12/12/16 17:50 Intake and Output: 12/12/16 12/12/16 06:59 18:59 Intake Total 250 Balance 250 - Medications Medications: Current Medications Aspirin (Aspirin Chewable) 81 mg PO DAILY [facility] Last Admin: 12/12/16 10:06 Dose: Not Given Docusate Sodium (Colace) 100 mg PO BID [facility] Last Admin: 12/12/16 17:33 Dose: Not Given Enoxaparin Sodium (Lovenox) 40 mg SC DAILY [facility] Famotidine (Pepcid) 20 mg PO DAILY [facility] Last Admin: 12/12/16 10:07 Dose: Not Given Furosemide (Lasix) 40 mg IVP Q12 [facility] Last Admin: 12/12/16 10:06 Dose: Not Given Insulin Aspart (Novolog) 0 unit SC [facility] PRN Reason: Protocol Last Admin: 12/12/16 17:33 Dose: Not Given Insulin Glargine (Lantus) 10 unit SC [facility] Last Admin: 12/11/16 21:25 Dose: 10 unit Lisinopril (Zestril) 5 mg PO DAILY [facility] Last Admin: 12/12/16 10:07 Dose: Not Given Metoprolol Tartrate (Lopressor) 50 mg PO BID [facility] Last Admin: 12/12/16 17:33 Dose: Not Given Rosuvastatin Calcium (Crestor) 10 mg PO [facility] Last Admin: 12/11/16 21:26 Dose: 10 mg - Labs Labs: 12/12/16 07:03 12/12/16 07:03 PT 16.7 SECONDS (9.7-12.2) H 12/08/16 02:03 INR 1.5 12/08/16 02:03 APTT 34 SECONDS (21-34) 12/08/16 02:03 Attending/Attestation - Attestation I have personally seen and examined this patient.: Yes I have fully participated in the care of the patient.: Yes I have reviewed all pertinent clinical information, including history, physical exam and plan: Yes Notes (Text): Patient seen, examined and case discussed with day-time resident. Patient seen this morning. Patient wearing Lifevest. Patient denied acute complaints. Patient is aware he is going to another hospital for biventricular ICD placement. Lovenox held in anticipation. Patient will be transferred back from [facility] under Dr. Saleem following placement of ICD; unknown if patient will return tonight or tomorrow. Patient is currently on aspirin, libra-inhibitor, beta liza, diuretic and statin given coronary artery disease and in light of severe systolic cardiomyopathy. Cardiology on board: help appreciated (1) Heart failure, systolic, with acute decompensation Assessment & Plan: * Cardiology (Dr. Nunez) on board-->help appreciated * Cardiology (Dr. [place]) on board-->help appreciated * Echocardiogram (12/10/16): left ventricle systolic function is severely impaired, ejection fraction is 20-25%, mild aortic regurgitation, mitral regurgitation is mild, mild tricupside regurgitation, mild pulmonic valvular regurgitation. large left pleural effusion * Cardiac catherization (12/11/16): severe triple vessle disease, small vessel disease, severe cardiomyopathy EF; 10-15% * Cardiology (Dr. Nunez) on board-->help appreciated * Cardiology (Dr. [place]) on board-->help appreciated * Patient is not ideal candidate for either for surgery or PCI; recommend aggressive medical for CHF and CAD, per cardiology * Aspirin 81mg PO daily * Lisinopril 5mg PO daily * Lopressor 50mg PO bid * Crestor 10mg PO qHS * Pt wearing life vest and to be setup for biventricular ICD/pacer 12/12/16 * Lasix 40mg IV Q 12hours (2) Coronary Artery Disease * Cardiac catherization (12/11/16): severe triple vessle disease, small vessel disease, severe cardiomyopathy EF; 10-15% * Cardiology (Dr. Nunez) on board-->help appreciated * Cardiology (Dr. [place]) on board-->help appreciated * Patient is not ideal candidate for either for surgery or PCI; recommend aggressive medical for CHF and CAD, per cardiology * Aspirin 81mg PO daily * Lisinopril 5mg PO daily * Lopressor 50mg PO bid * Crestor 10mg PO qHS (3) Diabetes * Uncontrolled * Improving sugars: upper 100s today * Patient is off Metformin secondary to prevention exacerbation of kidney prior to cardiac catherization * Patient is on Glipizide 5mg PO q daily * Off IV fluids * Patient is on novolog sliding scale * Continue Lantus 10units subqHS * Patient not eligible to resume Metformin until 48-72 hours post procedure 12/14 (4) Leukocytosis Assessment & Plan: * Normalized * Afebrile * 12/07 Blood culture: no growth X4 days X2 * 12/08/16: MRSA not detected X2 * Chest xray (12/09/16): bilateral small pleural effusion, left greater than right. mild congestive change (5) Elevated d-dimer Assessment & Plan: * CT Angio 12/08/16: No evidence of thoracic or abdominal aortic aneurysm or dissection. no gross evidence of pulmonary embolism; bilateral patchy alveolar opacities with moderate bilateral pleural effusion, cardiomegaly. * Wells Criteria:0, low suspicion for PE (6) Chest pain Assessment & Plan: Please refer to Coronary Artery disease, congestive heart failure, and elevated d-dimer (7) Prophylaxis * Pepcid 20mg PO daily * Held Lovenox 40mg SC daily preoperative procedure (biventricular ICD placement ) * Colace 100mg PO BID constipation * Lifevest: sudden cardiac prophylaxis
[2016-12-12] MEDS: (Novolog) Insulin Aspart, Recombinant 100 u/ml 10 ml vial SC SCH ×4 (08:18→21:45)
[2016-12-12] MEDS ORDERED: Enoxaparin 40 mg Syringe SC SCH (10:00)
[2016-12-12] MEDS: (Lantus) Insulin Glargine, Recombinant SC SCH (21:48)
--- NOTE | 2016-12-13 07:59 | CP.PCM.PN ---
<Lay Pickett - Last Filed: 12/13/16 10:02> Subjective - Date & Time of Evaluation Date of Evaluation: 12/13/16 Time of Evaluation: 07:30 - Subjective Subjective: Cardiology Progress Note for Dr. [place] Patient seen and examined at bedside. There were no acute overnight events. He was transferred to [facility] for AICD placement. He was safely transferred back to to this hospital without any complications. Today he reports feeling well. He says he has some pain at the surgical site. He denies any CP, SOB, n/v/d, numbness/tingling. Objective - Vital Signs/Intake and Output Vital Signs (last 24 hours): Temp Pulse Resp BP Pulse Ox 98.7 F 100 H 20 132/86 98 12/13/16 00:00 12/13/16 03:53 12/13/16 00:00 12/13/16 00:00 12/13/16 00:00 - Medications Medications: Current Medications Aspirin (Aspirin Chewable) 81 mg PO DAILY [facility] Last Admin: 12/12/16 10:06 Dose: Not Given Docusate Sodium (Colace) 100 mg PO BID [facility] Last Admin: 12/12/16 17:33 Dose: Not Given Enoxaparin Sodium (Lovenox) 40 mg SC DAILY [facility] Famotidine (Pepcid) 20 mg PO DAILY [facility] Last Admin: 12/12/16 10:07 Dose: Not Given Furosemide (Lasix) 40 mg IVP Q12 [facility] Last Admin: 12/12/16 21:51 Dose: 40 mg Insulin Aspart (Novolog) 0 unit SC [facility] PRN Reason: Protocol Last Admin: 12/12/16 21:45 Dose: Not Given Insulin Glargine (Lantus) 10 unit SC [facility] Last Admin: 12/12/16 21:48 Dose: 10 unit Lisinopril (Zestril) 5 mg PO DAILY [facility] Last Admin: 12/12/16 10:07 Dose: Not Given Metoprolol Tartrate (Lopressor) 50 mg PO BID [facility] Last Admin: 12/12/16 17:33 Dose: Not Given Rosuvastatin Calcium (Crestor) 10 mg PO HS [facility] Last Admin: 12/12/16 21:48 Dose: 10 mg - Labs Labs: 12/12/16 07:03 12/12/16 07:03 PT 16.7 SECONDS (9.7-12.2) H 12/08/16 02:03 INR 1.5 12/08/16 02:03 APTT 34 SECONDS (21-34) 12/08/16 02:03 - Constitutional Appears: No Acute Distress - Head Exam Head Exam: ATRAUMATIC, NORMAL INSPECTION, NORMOCEPHALIC - Eye Exam Eye Exam: Normal appearance Pupil Exam: NORMAL ACCOMODATION - ENT Exam ENT Exam: Mucous Membranes Moist - Respiratory Exam Respiratory Exam: Clear to Ausculation Bilateral, NORMAL BREATHING PATTERN. absent: Rales, Rhonchi, Wheezes - Cardiovascular Exam Cardiovascular Exam: REGULAR RHYTHM, +S1, +S2. absent: Gallop, Rubs, Murmur - GI/Abdominal Exam GI & Abdominal Exam: Soft, Normal Bowel Sounds. absent: Rigid, Tenderness, Mass , Rebound - Extremities Exam Extremities Exam: Normal Inspection. absent: Calf Tenderness, Pedal Edema - Neurological Exam Neurological Exam: Alert, Awake, CN II-XII Intact, Oriented x3 - Psychiatric Exam Psychiatric exam: Normal Affect, Normal Mood - Skin Skin Exam: Dry, Normal Color, Warm Assessment and Plan - Assessment and Plan (Free Text) Assessment: This is a 61Y Male with PMH of medical non-compliance, DM and HTN admitted for 1) Severe left ventricular systolic dysfunction with cardiomyopathy s/p AICD placement POD#1 2) Severe triple vessel disease 3) CHF 4) Uncontrolled DM 5) HTN Plan: - AICD in place - Cardiac cath showed severe triple vessel disease with severe cardiomyopathy- unoperable - Continue aggressive medical management - Prescription in chart written for ASA 81mg qd, Crestor 10mg qd, Lisinopril 5mg qd, Lopressor 50mg BID, Lasix 40mg PO qd - Patient is clear for discharge as per cardiac standpoint - Cardiac medicine reviewed with patient and patient showed understanding for what each medicine was for - Patient will need diabetes medication as per primary before d/c - Patient is instructed to follow up in Dr. Colorado clinic in 1 week GI ppx: Pepcid DVT ppx: Lovenox Case seen, reviewed and discussed with Dr. Miroslava Pickett PGY1 <Dewayne Colorado - Last Filed: 12/13/16 20:16> Objective - Vital Signs/Intake and Output Vital Signs (last 24 hours): Temp Pulse Resp BP Pulse Ox 97.7 F 83 20 92/65 L 97 12/13/16 15:33 12/13/16 15:33 12/13/16 15:33 12/13/16 15:33 12/13/16 15:33 - Labs Labs: 12/13/16 08:02 12/13/16 08:02 PT 16.7 SECONDS (9.7-12.2) H 12/08/16 02:03 INR 1.5 12/08/16 02:03 APTT 34 SECONDS (21-34) 12/08/16 02:03 Assessment and Plan (1) Chest pain Status: Acute (2) Chronic congestive heart failure Status: Acute (3) Heart failure, systolic, with acute decompensation Status: Acute (4) Tachycardia Status: Acute Attending/Attestation - Attestation I have personally seen and examined this patient.: Yes I have fully participated in the care of the patient.: Yes I have reviewed all pertinent clinical information, including history, physical exam and plan: Yes Notes (Text): 12/13/16 20:16 ICD site c/d/i follow up in [facility]
[2016-12-13 08:14] LABS: BASO % 0.4 % (0.0-2.0); EOS # 0.2 K/uL (0.0-0.7); EOS % 2.1 % (0.0-4.0); LYMPH # 1.5 K/uL (1.0-4.3); LYMPH % 16.5 % (20.0-40.0); MEAN CELL VOLUME 88.6 fL (80.0-94.0); MEAN CORPUSCULAR HEMOGLOBIN 29.5 pg (27.0-31.0); MEAN CORPUSCULAR HGB CONC 33.3 g/dL (33.0-37.0); MEAN PLATELET VOLUME 10.6 fL (7.2-11.7); MONO # 0.9 K/uL (0.0-0.8); NRBC % 0.1 % (0.0-2.0); RED CELL DISTRIBUTION WIDTH 13.7 % (11.5-14.5)
[2016-12-13 08:18] LABS: CHLORIDE 98 mmol/L (98-107); POTASSIUM 3.6 mmol/L (3.6-5.2); SODIUM 135 mmol/L (132-148)
[2016-12-13 08:20] LABS: ALB/GLOB RATIO 0.9 (1.0-2.1); ALKALINE PHOSPHATASE 60 U/L (38-126); AST/SGOT 21 U/L (17-59); BILIRUBIN,TOTAL 1.4 mg/dL (0.2-1.3); CARBON DIOXIDE 28 mmol/L (22-30); GFR AFRICAN-AMERICAN > 60; TOTAL PROTEIN 6.7 g/dL (6.3-8.3)
[2016-12-13 08:21] LABS: ALT/SGPT 43 U/L (21-72); BLOOD UREA NITROGEN 18 mg/dL (9-20); CALCIUM 8.6 mg/dl (8.6-10.4); GLUCOSE,RANDOM 149 mg/dL (75-110); PHOSPHOROUS 3.4 mg/dL (2.5-4.5)
[2016-12-13 08:22] LABS: MAGNESIUM 1.7 mg/dL (1.6-2.3)
[2016-12-13] MEDS: (Novolog) Insulin Aspart, Recombinant 100 u/ml 10 ml vial SC SCH ×2 (08:30→12:30)
[2016-12-13] MEDS ORDERED: Potassium Chloride 20 mEq ER Tab PO ONE (09:11)
[2016-12-13 15:37] VITALS: BP 92/65; PULSE 83; RESP 20; TEMP 97.7; O2SAT 97
--- NOTE | 2016-12-13 20:44 | CP.PCM.DIS ---
<Devin Huertas - Last Filed: 12/16/16 21:33> Provider - Provider Date of Admission: 12/11/16 13:34 Attending physician: Pollo Sethi MD Primary care physician: Non [facility] Provider Consults: Cardiology: Dr. Colorado; Dr. Nunez Time Spent in preparation of Discharge (in minutes): 40 Hospital Course - Lab Results Lab Results: Most Recent Lab Values WBC 9.0 K/uL (4.8-10.8) 12/13/16 08:02 RBC 4.74 Mil/uL (4.40-5.90) 12/13/16 08:02 Hgb 14.0 g/dL (12.0-18.0) 12/13/16 08:02 Hct 42.0 % (35.0-51.0) 12/13/16 08:02 MCV 88.6 fL (80.0-94.0) 12/13/16 08:02 MCH 29.5 pg (27.0-31.0) 12/13/16 08:02 MCHC 33.3 g/dL (33.0-37.0) 12/13/16 08:02 RDW 13.7 % (11.5-14.5) 12/13/16 08:02 Plt Count 214 K/uL (130-400) 12/13/16 08:02 MPV 10.6 fL (7.2-11.7) 12/13/16 08:02 Neut % (Auto) 71.0 % (50.0-75.0) 12/13/16 08:02 Lymph % (Auto) 16.5 % (20.0-40.0) L 12/13/16 08:02 [place] % (Auto) 10.0 % (0.0-10.0) 12/13/16 08:02 Eos % (Auto) 2.1 % (0.0-4.0) 12/13/16 08:02 Baso % (Auto) 0.4 % (0.0-2.0) 12/13/16 08:02 Neut # 6.4 K/uL (1.8-7.0) 12/13/16 08:02 Lymph # 1.5 K/uL (1.0-4.3) 12/13/16 08:02 [place] # 0.9 K/uL (0.0-0.8) H 12/13/16 08:02 Eos # 0.2 K/uL (0.0-0.7) 12/13/16 08:02 Baso # 0.0 K/uL (0.0-0.2) 12/13/16 08:02 Neutrophils % (Manual) 79 % (50-75) H 12/09/16 06:18 Lymphocytes % (Manual) 9 % (20-40) L 12/09/16 06:18 Reactive Lymphs % 2 % (0-0) H 12/09/16 06:18 Monocytes % (Manual) 10 % (0-10) 12/09/16 06:18 Toxic Granulation Present 12/09/16 06:18 Platelet Estimate Normal (NORMAL) 12/09/16 06:18 Large Platelets Present 12/09/16 06:18 Polychromasia Slight 12/09/16 06:18 Hypochromasia (manual) Slight 12/09/16 06:18 Anisocytosis (manual) Slight 12/09/16 06:18 Macrocytosis (manual) Slight 12/09/16 06:18 PT 16.7 SECONDS (9.7-12.2) H 12/08/16 02:03 INR 1.5 12/08/16 02:03 APTT 34 SECONDS (21-34) 12/08/16 02:03 D-Dimer, Quantitative 415 ng/mlDDU (0-243) H 12/07/16 22:50 Puncture Site Rr 12/08/16 05:27 pCO2 31 mm/Hg (35-45) L 12/08/16 05:27 pO2 122 mm/Hg (80-100) H 12/08/16 05:27 HCO3 21.8 mmol/L (21-28) 12/08/16 05:27 ABG pH 7.41 (7.35-7.45) 12/08/16 05:27 ABG Total CO2 20.6 mmol/L (22-28) L 12/08/16 05:27 ABG O2 Saturation 99.3 % (95-98) H 12/08/16 05:27 ABG Base Excess -4.0 mmol/L (-2.0-3.0) L 12/08/16 05:27 ABG Hemoglobin 13.5 g/dL (11.7-17.4) 12/08/16 05:27 ABG Carboxyhemoglobin 1.8 % (0.5-1.5) H 12/08/16 05:27 POC ABG HHb (Measured) 0.7 % (0.0-5.0) 12/08/16 05:27 ABG Methemoglobin 1.0 % (0.0-3.0) 12/08/16 05:27 Evert Test Pos 12/08/16 05:27 A-a O2 Difference 124.0 mm/Hg 12/08/16 05:27 Respiratory Index 1.0 12/08/16 05:27 Hgb O2 Saturation 96.5 % (95.0-98.0) 12/08/16 05:27 FiO2 40.0 % 12/08/16 05:27 Inspiratory BiPAP 12 12/08/16 05:27 Expiratory BiPAP 6 12/08/16 05:27 Sodium 135 mmol/L (132-148) 12/13/16 08:02 Potassium 3.6 mmol/L (3.6-5.2) 12/13/16 08:02 Chloride 98 mmol/L (98-107) 12/13/16 08:02 Carbon Dioxide 28 mmol/L (22-30) 12/13/16 08:02 Anion Gap 14 (10-20) 12/13/16 08:02 BUN 18 mg/dL (9-20) 12/13/16 08:02 Creatinine 0.7 MG/DL (0.8-1.5) L 12/13/16 08:02 Est GFR ( Amer) > 60 12/13/16 08:02 Est GFR (Non-Af Amer) > 60 12/13/16 08:02 POC Glucose (mg/dL) 166 mg/dL (65-110) H 12/13/16 16:23 Random Glucose 149 mg/dL (75-110) H 12/13/16 08:02 Hemoglobin A1c 10.1 % (4.2-6.5) H 12/08/16 01:42 Calcium 8.6 mg/dl (8.6-10.4) 12/13/16 08:02 Phosphorus 3.4 mg/dL (2.5-4.5) 12/13/16 08:02 Magnesium 1.7 mg/dL (1.6-2.3) 12/13/16 08:02 Iron 40 ug/dL (49-181) L 12/08/16 01:37 TIBC 238 ug/dL (250-450) L 12/08/16 01:37 % Saturation 17 (20-55) L 12/08/16 01:37 Total Bilirubin 1.4 mg/dL (0.2-1.3) H 12/13/16 08:02 AST 21 U/L (17-59) 12/13/16 08:02 ALT 43 U/L (21-72) 12/13/16 08:02 Alkaline Phosphatase 60 U/L (38-126) 12/13/16 08:02 Troponin I 0.0670 ng/mL (0.00-0.120) 12/08/16 06:15 NT-Pro-B Natriuret Pep 6650 pg/mL (0-900) H 12/07/16 22:50 Total Protein 6.7 g/dL (6.3-8.3) 12/13/16 08:02 Albumin 3.1 g/dL (3.5-5.0) L 12/13/16 08:02 Globulin 3.6 gm/dL (2.2-3.9) 12/13/16 08:02 Albumin/Globulin Ratio 0.9 (1.0-2.1) L 12/13/16 08:02 Triglycerides 112 mg/dL (0-149) 12/10/16 07:01 Cholesterol 147 mg/dL (0-199) 12/10/16 07:01 LDL Cholesterol Direct 76 mg/dL (0-129) 12/10/16 07:01 HDL Cholesterol 41 mg/dL (30-70) 12/10/16 07:01 Vitamin B12 > 1000 pg/mL (239-931) H 12/08/16 01:43 Procalcitonin 0.26 NG/ML (0.19-0.49) 12/08/16 06:15 Free T4 1.57 ng/dL (0.78-2.19) 12/08/16 03:00 TSH 3rd Generation 1.87 mIU/L (0.46-4.68) 12/08/16 01:43 Urine Color Yellow (YELLOW) 12/08/16 00:27 Urine Clarity Clear (Clear) 12/08/16 00:27 Urine pH 5.0 (5.0-8.0) 12/08/16 00:27 Ur Specific [place] 1.012 (1.003-1.030) 12/08/16 00:27 Urine Protein 2+ mg/dL (NEGATIVE) H 12/08/16 00:27 Urine Glucose (UA) 3+ mg/dL (Normal) H 12/08/16 00:27 Urine Ketones Trace mg/dL (NEGATIVE) 12/08/16 00:27 Urine Blood Negative (NEGATIVE) 12/08/16 00:27 Urine Nitrate Negative (NEGATIVE) 12/08/16 00:27 Urine Bilirubin Negative (NEGATIVE) 12/08/16 00: Urine Urobilinogen Normal mg/dL (0.2-1.0) 12/08/16 00:27 Ur Leukocyte Esterase Neg Agustin/uL (Negative) 12/08/16 00:27 Urine WBC (Auto) 2 /hpf (0-5) 12/08/16 00:27 Urine RBC (Auto) 1 /hpf (0-3) 12/08/16 00:27 Ur Squamous Epith Cells < 1 /hpf (0-5) 12/08/16 00:27 Urine Opiates Screen Negative (NEGATIVE) 12/08/16 00:27 Urine Methadone Screen Negative (NEGATIVE) 12/08/16 00:27 Ur Barbiturates Screen Negative (NEGATIVE) 12/08/16 00:27 Ur Phencyclidine Scrn Negative (NEGATIVE) 12/08/16 00:27 Ur Amphetamines Screen Negative (NEGATIVE) 12/08/16 00:27 U Benzodiazepines Scrn Negative (NEGATIVE) 12/08/16 00:27 U Oth Cocaine Metabols Negative (NEGATIVE) 12/08/16 00:27 U Cannabinoids Screen Negative (NEGATIVE) 12/08/16 00:27 Hep Bs Antigen Negative (NEGATIVE) 12/10/16 07:01 Hepatitis C Antibody Negative (NEGATIVE) 12/10/16 07:01 HIV 1&2 Antibody Screen Negative (NEGATIVE) 12/10/16 07:01 Influenza Typ A,B (EIA) Negative for flu a/b (NEGATIVE) 12/07/16 23:00 - Hospital Course Hospital Course: Upon hospital admission: 61 year old male with PMHx HTN, DM2, Diabetic coma 2005 - presents c/o SOB + productive Cough (white mucous) for the past 2 weeks. He admits to worsening SOB, especially while laying flat (feels like he' s drowning), requiring 2 pillows at night. Over the past 3 days, he reports associated LE swelling, stating that this never happened before. Patient states that prior to 2 weeks ago, his breathing was normal, and he could walk "for miles." He admits to increasing his fluid intact during this period due to increased thirst. Patient also reports an unintentional 40 pound weight loss in the last 2 months. Admits to weakness, diaphoresis x1 day, SOB, cough, nausea. Denies f/c, chest pain, palpitations, abdominal pain, d/c, urinary symptoms, hematochezia, hematemesis, sick contacts, or any additional complaints. Due to severity of condition, patient was transferred to the ICU. ED course: Solumedrol 125mg, Labetalol 20mg, Novolin R 10mg, Lasix 20, Duonebs, Ceftriaxone 1Gm IVPB. Patient reports feeling less SOB and less weak after diuresis. 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 PMD: unsure During hospital course, the patient was evaluated and treated for the following : (1) Heart failure, systolic, with acute decompensation. Patient was seen by cardiology consults, Dr. [place] and Dr. Nunez. Patient s/p cath. Severe Triple vessel disease. Small vessel disease; Severe Cardiomyopathy (EF 10-15%); Not ideal candidate either for surgery or PCI; Dr. Nunez recommends aggressive medical therapy for CHF and CAD; Echo showed EF of 20%; Patient was provided life vest and later transferred for placement of biventricular ICD/pacer. Well' s Criteria (DVT) = 0; NATASHA Score = 2. (2) Diabetes with A1c 10.1 despite being on metformin 500 mg bid and glipizide 10 mg daily; Tx with lantus 8units HS while in the hospital. (3) (3) Leukocytosis for which blood culture negative ; nares mrsa negative; WBC WNL. (4) Tachycardia Despite low dose metoprolol; Increased to metoprolol to 50 mg bid; (5) Chest pain of Unclear etiology; troponin negative; possibly unstable angina; continue ASA 81, crestor 10 mg, lipid panel WNL Upon hospital discharge, the patient was provided with the following instructions: Patient is stable for discharge per Dr. Beth and Dr. [place]. Patient should resume all medications as outlined in this document. Additionally , patient should take the new medications listed below (scripts provided). 1. Please make an appointment and follow up with Primary Doctor within one week of discharge. If patient does not have a Primary Doctor, please follow up with [facility] to establish medical care, at [phone]. 2. Please make an appointment and follow up with your Sales And Distribution Clerk, Dr. Colorado with 1 week of discharge (in the [facility]). You had an AICD placed during your hospital stay. You also had a Cardiac cath showing severe triple vessel disease with severe cardiomyopathy (this was un-operable). Patient should return to ED immediately if symptoms return or worsen. Instructions discussed with patient who understood and agreed. Newly prescribed medications: Metformin 500mg PO BID (home med) (start tomorrow 12/14). ASA 81mg qd Simvastatin 80mg PO HS Lisinopril 5mg qd Lopressor 50mg BID Lasix 40mg PO qd This is a summary of the patient's hospital admission, see chart for comprehensive detail. - Date & Time of H&P Date of H&P: 12/08/16 Time of H&P: 00:07 Discharge Exam - Additional Findings Additional findings: - Constitutional Appears: Well, No Acute Distress - Head Exam Head Exam: NORMAL INSPECTION - Eye Exam Eye Exam: Normal appearance. absent: Scleral icterus - ENT Exam ENT Exam: Mucous Membranes Moist - Neck Exam Neck Exam: Normal Inspection - Respiratory Exam Respiratory Exam: Clear to Ausculation Bilateral, NORMAL BREATHING PATTERN. absent: Rales, Rhonchi, Wheezes - Cardiovascular Exam Cardiovascular Exam: Irregular Rhythm, +S1, +S2 - GI/Abdominal Exam GI & Abdominal Exam: Soft. absent: Distended, Tenderness - Extremities Exam Additional comments: Mild bilateral lower leg edema (improved) - Neurological Exam Neurological Exam: Alert, Awake - Psychiatric Exam Psychiatric exam: Normal Affect, Normal Mood - Skin Skin Exam: Dry, Normal Color, Warm. absent: Cyanosis Discharge Plan - Discharge Medications Prescriptions: RX: Aspirin [Aspirin Chewable] 81 mg PO DAILY 30 Days RX: GlipiZIDE [Glucotrol] 10 mg PO DAILY #30 tab RX: Furosemide [Lasix] 40 mg PO DAILY 30 Days RX: Metoprolol Tartrate [Lopressor] 50 mg PO BID 30 Days RX: Simvastatin 80 mg PO HS #30 tablet RX: Lisinopril [Zestril] 5 mg PO DAILY 30 Days RX: metFORMIN [glucOPHAGE] 500 mg PO BID 30 Days - Follow Up Plan Condition: FAIR Disposition: HOME/ ROUTINE Instructions: Heart Failure (DC), Heart Healthy Diet (DC), Diabetes Mellitus Type 2 in Adults (DC), Meal Planning with the Plate Method (DC), Implantable Cardioverter Defibrillator (DC) Additional Instructions: Patient is stable for discharge per Dr. Beth and Dr. [place]. Patient should resume all medications as outlined in this document. Additionally, patient should take the new medications listed below (scripts provided). 1. Please make an appointment and follow up with Primary Doctor within one week of discharge. If patient does not have a Primary Doctor, please follow up with [facility] to establish medical care, at [phone]. 2. Please make an appointment and follow up with your Sales And Distribution Clerk, Dr. Colorado with 1 week of discharge (in the [facility]). You had an AICD placed during your hospital stay. You also had a Cardiac cath showing severe triple vessel disease with severe cardiomyopathy (this was un-operable). Patient should return to ED immediately if symptoms return or worsen. Instructions discussed with patient who understood and agreed. Newly prescribed medications: Metformin 500mg PO BID (home med) (start tomorrow 12/14). ASA 81mg qd Simvastatin 80mg PO HS Lisinopril 5mg qd Lopressor 50mg BID Lasix 40mg PO qd Referrals: Non [facility] Provider, [Primary Care Provider] - <Varsha Beth V - Last Filed: 12/19/16 05:35> Provider - Provider Date of Admission: 12/11/16 13:34 Attending physician: Pollo Sethi MD Primary care physician: Non [facility] Provider Hospital Course - Lab Results Lab Results: Most Recent Lab Values WBC 9.0 K/uL (4.8-10.8) 12/13/16 08:02 RBC 4.74 Mil/uL (4.40-5.90) 12/13/16 08:02 Hgb 14.0 g/dL (12.0-18.0) 12/13/16 08:02 Hct 42.0 % (35.0-51.0) 12/13/16 08:02 MCV 88.6 fL (80.0-94.0) 12/13/16 08:02 MCH 29.5 pg (27.0-31.0) 12/13/16 08:02 MCHC 33.3 g/dL (33.0-37.0) 12/13/16 08:02 RDW 13.7 % (11.5-14.5) 12/13/16 08:02 Plt Count 214 K/uL (130-400) 12/13/16 08:02 MPV 10.6 fL (7.2-11.7) 12/13/16 08:02 Neut % (Auto) 71.0 % (50.0-75.0) 12/13/16 08:02 Lymph % (Auto) 16.5 % (20.0-40.0) L 12/13/16 08:02 [place] % (Auto) 10.0 % (0.0-10.0) 12/13/16 08:02 Eos % (Auto) 2.1 % (0.0-4.0) 12/13/16 08:02 Baso % (Auto) 0.4 % (0.0-2.0) 12/13/16 08:02 Neut # 6.4 K/uL (1.8-7.0) 12/13/16 08:02 Lymph # 1.5 K/uL (1.0-4.3) 12/13/16 08:02 [place] # 0.9 K/uL (0.0-0.8) H 12/13/16 08:02 Eos # 0.2 K/uL (0.0-0.7) 12/13/16 08:02 Baso # 0.0 K/uL (0.0-0.2) 12/13/16 08:02 Neutrophils % (Manual) 79 % (50-75) H 12/09/16 06:18 Lymphocytes % (Manual) 9 % (20-40) L 12/09/16 06:18 Reactive Lymphs % 2 % (0-0) H 12/09/16 06:18 Monocytes % (Manual) 10 % (0-10) 12/09/16 06:18 Toxic Granulation Present 12/09/16 06:18 Platelet Estimate Normal (NORMAL) 12/09/16 06:18 Large Platelets Present 12/09/16 06:18 Polychromasia Slight 12/09/16 06:18 Hypochromasia (manual) Slight 12/09/16 06:18 Anisocytosis (manual) Slight 12/09/16 06:18 Macrocytosis (manual) Slight 12/09/16 06:18 PT 16.7 SECONDS (9.7-12.2) H 12/08/16 02:03 INR 1.5 12/08/16 02:03 APTT 34 SECONDS (21-34) 12/08/16 02:03 D-Dimer, Quantitative 415 ng/mlDDU (0-243) H 12/07/16 22:50 Puncture Site Rr 12/08/16 05:27 pCO2 31 mm/Hg (35-45) L 12/08/16 05:27 pO2 122 mm/Hg (80-100) H 12/08/16 05:27 HCO3 21.8 mmol/L (21-28) 12/08/16 05:27 ABG pH 7.41 (7.35-7.45) 12/08/16 05:27 ABG Total CO2 20.6 mmol/L (22-28) L 12/08/16 05:27 ABG O2 Saturation 99.3 % (95-98) H 12/08/16 05:27 ABG Base Excess -4.0 mmol/L (-2.0-3.0) L 12/08/16 05:27 ABG Hemoglobin 13.5 g/dL (11.7-17.4) 12/08/16 05:27 ABG Carboxyhemoglobin 1.8 % (0.5-1.5) H 12/08/16 05:27 POC ABG HHb (Measured) 0.7 % (0.0-5.0) 12/08/16 05:27 ABG Methemoglobin 1.0 % (0.0-3.0) 12/08/16 05:27 Evert Test Pos 12/08/16 05:27 A-a O2 Difference 124.0 mm/Hg 12/08/16 05:27 Respiratory Index 1.0 12/08/16 05:27 Hgb O2 Saturation 96.5 % (95.0-98.0) 12/08/16 05:27 FiO2 40.0 % 12/08/16 05:27 Inspiratory BiPAP 12 12/08/16 05:27 Expiratory BiPAP 6 12/08/16 05:27 Sodium 135 mmol/L (132-148) 12/13/16 08:02 Potassium 3.6 mmol/L (3.6-5.2) 12/13/16 08:02 Chloride 98 mmol/L (98-107) 12/13/16 08:02 Carbon Dioxide 28 mmol/L (22-30) 12/13/16 08:02 Anion Gap 14 (10-20) 12/13/16 08:02 BUN 18 mg/dL (9-20) 12/13/16 08:02 Creatinine 0.7 MG/DL (0.8-1.5) L 12/13/16 08:02 Est GFR ( Amer) > 60 12/13/16 08:02 Est GFR (Non-Af Amer) > 60 12/13/16 08:02 POC Glucose (mg/dL) 166 mg/dL (65-110) H 12/13/16 16:23 Random Glucose 149 mg/dL (75-110) H 12/13/16 08:02 Hemoglobin A1c 10.1 % (4.2-6.5) H 12/08/16 01:42 Calcium 8.6 mg/dl (8.6-10.4) 12/13/16 08:02 Phosphorus 3.4 mg/dL (2.5-4.5) 12/13/16 08:02 Magnesium 1.7 mg/dL (1.6-2.3) 12/13/16 08:02 Iron 40 ug/dL (49-181) L 12/08/16 01:37 TIBC 238 ug/dL (250-450) L 12/08/16 01:37 % Saturation 17 (20-55) L 12/08/16 01:37 Total Bilirubin 1.4 mg/dL (0.2-1.3) H 12/13/16 08:02 AST 21 U/L (17-59) 12/13/16 08:02 ALT 43 U/L (21-72) 12/13/16 08:02 Alkaline Phosphatase 60 U/L (38-126) 12/13/16 08:02 Troponin I 0.0670 ng/mL (0.00-0.120) 12/08/16 06:15 NT-Pro-B Natriuret Pep 6650 pg/mL (0-900) H 12/07/16 22:50 Total Protein 6.7 g/dL (6.3-8.3) 12/13/16 08:02 Albumin 3.1 g/dL (3.5-5.0) L 12/13/16 08:02 Globulin 3.6 gm/dL (2.2-3.9) 12/13/16 08:02 Albumin/Globulin Ratio 0.9 (1.0-2.1) L 12/13/16 08:02 Triglycerides 112 mg/dL (0-149) 12/10/16 07:01 Cholesterol 147 mg/dL (0-199) 12/10/16 07:01 LDL Cholesterol Direct 76 mg/dL (0-129) 12/10/16 07:01 HDL Cholesterol 41 mg/dL (30-70) 12/10/16 07:01 Vitamin B12 > 1000 pg/mL (239-931) H 12/08/16 01:43 Procalcitonin 0.26 NG/ML (0.19-0.49) 12/08/16 06:15 Free T4 1.57 ng/dL (0.78-2.19) 12/08/16 03:00 TSH 3rd Generation 1.87 mIU/L (0.46-4.68) 12/08/16 01:43 Urine Color Yellow (YELLOW) 12/08/16 00:27 Urine Clarity Clear (Clear) 12/08/16 00:27 Urine pH 5.0 (5.0-8.0) 12/08/16 00:27 Ur Specific [place] 1.012 (1.003-1.030) 12/08/16 00:27 Urine Protein 2+ mg/dL (NEGATIVE) H 12/08/16 00:27 Urine Glucose (UA) 3+ mg/dL (Normal) H 12/08/16 00:27 Urine Ketones Trace mg/dL (NEGATIVE) 12/08/16 00:27 Urine Blood Negative (NEGATIVE) 12/08/16 00:27 Urine Nitrate Negative (NEGATIVE) 12/08/16 00:27 Urine Bilirubin Negative (NEGATIVE) 12/08/16 00: Urine Urobilinogen Normal mg/dL (0.2-1.0) 12/08/16 00:27 Ur Leukocyte Esterase Neg Agustin/uL (Negative) 12/08/16 00:27 Urine WBC (Auto) 2 /hpf (0-5) 12/08/16 00:27 Urine RBC (Auto) 1 /hpf (0-3) 12/08/16 00:27 Ur Squamous Epith Cells < 1 /hpf (0-5) 12/08/16 00:27 Urine Opiates Screen Negative (NEGATIVE) 12/08/16 00:27 Urine Methadone Screen Negative (NEGATIVE) 12/08/16 00:27 Ur Barbiturates Screen Negative (NEGATIVE) 12/08/16 00:27 Ur Phencyclidine Scrn Negative (NEGATIVE) 12/08/16 00:27 Ur Amphetamines Screen Negative (NEGATIVE) 12/08/16 00:27 U Benzodiazepines Scrn Negative (NEGATIVE) 12/08/16 00:27 U Oth Cocaine Metabols Negative (NEGATIVE) 12/08/16 00:27 U Cannabinoids Screen Negative (NEGATIVE) 12/08/16 00:27 Hep Bs Antigen Negative (NEGATIVE) 12/10/16 07:01 Hepatitis C Antibody Negative (NEGATIVE) 12/10/16 07:01 HIV 1&2 Antibody Screen Negative (NEGATIVE) 12/10/16 07:01 Influenza Typ A,B (EIA) Negative for flu a/b (NEGATIVE) 12/07/16 23:00 Attending/Attestation - Attestation I have personally seen and examined this patient.: Yes I have fully participated in the care of the patient.: Yes I have reviewed all pertinent clinical information, including history, physical exam and plan: Yes Notes (Text): This is late computer entry for 12/13/16. Patient seen, examined and case discussed with day-time resident. Patient returned from [facility] following placement of biventricular ICD. Per cardiology-EPS, patient stable for discharge. Patient has mild pain over the surgical site, but otherwise is stable. Patient denies other acute complaints. Patient discharged on aspirin, beta-liza, libra-inhibitor, loop diuretic, statin, and informed to restart metformin tomorrow. Patient instructed to follow-up with the [facility] upon discharge for post-hospitalization and receive cardiology referral. Discharge instructions and discharge order discussed with day-time resident and with patient at bedside. Verbalized understanding and agree. Heart failure core measures completed. 1. Please make an appointment and follow up with Primary Doctor within one week of discharge. If patient does not have a Primary Doctor, please follow up with [facility] to establish medical care, at [phone]. 2. Please make an appointment and follow up with your Sales And Distribution Clerk, Dr. Colorado with 1 week of discharge (in the [facility]). You had an AICD placed during your hospital stay. You also had a Cardiac cath showing severe triple vessel disease with severe cardiomyopathy (this was un-operable). Patient should return to ED immediately if symptoms return or worsen. Instructions discussed with patient who understood and agreed. Newly prescribed medications (month supply/no refills) Metformin 500mg PO BID (home med) (start tomorrow 12/14). ASA 81mg qd Simvastatin 80mg PO HS Lisinopril 5mg qd Lopressor 50mg BID Lasix 40mg PO qd This is a summary of patient's hospitalization. Please refer to EMR for further details. (1) Heart failure, systolic, with acute decompensation Assessment & Plan: * Cardiology (Dr. Nunez) on board-->help appreciated * Cardiology (Dr. [place]) on board-->help appreciated * Echocardiogram (12/10/16): left ventricle systolic function is severely impaired, ejection fraction is 20-25%, mild aortic regurgitation, mitral regurgitation is mild, mild tricupside regurgitation, mild pulmonic valvular regurgitation. large left pleural effusion * Cardiac catherization (12/11/16): severe triple vessle disease, small vessel disease, severe cardiomyopathy EF; 10-15% * Cardiology (Dr. Nunez) on board-->help appreciated * Cardiology (Dr. [place]) on board-->help appreciated * Patient is not ideal candidate for either for surgery or PCI; recommend aggressive medical for CHF and CAD, per cardiology * Aspirin 81mg PO daily * Lisinopril 5mg PO daily * Lopressor 50mg PO bid * Crestor 10mg PO qHS-->switched to Simvastatin based on affordability for the patient * Pt wearing life vest and to be setup for biventricular ICD/pacer 12/12/16--> stable by EP cardiology for discharge * Lasix 40mg IV Q 12hours-->switch to PO upon discharge (2) Coronary Artery Disease * Cardiac catherization (12/11/16): severe triple vessle disease, small vessel disease, severe cardiomyopathy EF; 10-15% * Cardiology (Dr. Nunez) on board-->help appreciated * Cardiology (Dr. [place]) on board-->help appreciated * Patient is not ideal candidate for either for surgery or PCI; recommend aggressive medical for CHF and CAD, per cardiology * Aspirin 81mg PO daily * Lisinopril 5mg PO daily * Lopressor 50mg PO bid * Crestor 10mg PO qHS-->switched to Simvastatin based on affordability for the patient (3) Diabetes * Uncontrolled * Improving sugars: upper 100s today * Patient is off Metformin secondary to prevention exacerbation of kidney prior to cardiac catherization-->restart tomorrow 12/14/16 * Patient is on Glipizide 5mg PO q daily discontinued * Off IV fluids * Patient is on novolog sliding scale discontinued * Continue Lantus 10units subqHS * Patient not eligible to resume Metformin until 48-72 hours post procedure 12/14 (4) Leukocytosis Assessment & Plan: * Normalized * Afebrile * 12/07 Blood culture: negative * 12/08/16: MRSA not detected X2 * Chest xray (12/09/16): bilateral small pleural effusion, left greater than right. mild congestive change (5) Elevated d-dimer Assessment & Plan: * CT Angio 12/08/16: No evidence of thoracic or abdominal aortic aneurysm or dissection. no gross evidence of pulmonary embolism; bilateral patchy alveolar opacities with moderate bilateral pleural effusion, cardiomegaly. * Wells Criteria:0, low suspicion for PE (6) Chest pain Assessment & Plan: Please refer to Coronary Artery disease, congestive heart failure, and elevated d-dimer (7) Prophylaxis * Pepcid 20mg PO daily * Held Lovenox 40mg SC daily preoperative procedure (biventricular ICD placement ) * Colace 100mg PO BID constipation * Lifevest: sudden cardiac prophylaxis
--- NOTE | 2016-12-15 06:40 | CARD ---
APPROVED REPORT EKG Measurement Heart [id number] 130P13 [id number] <Conclusion> Sinus tachycardia Possible Left atrial enlargement Left axis deviation Nonspecific intraventricular block Possible Anterolateral infarct, age undetermined Abnormal ECG
--- NOTE | 2016-12-15 20:20 | CARDCATH ---
PROCEDURE DATE: 12/11/2016 PROCEDURES: 1. Left heart catheterization. 2. Coronary angiogram. CLINICAL INDICATIONS: 1. Angina and dyspnea. 2. Hypertension. 3. Coronary artery disease. 4. Acute systolic congestive heart failure. REFERRING PHYSICIANS: 1. Dr. Dewayne [place]. 2. Dr. Pollo Sethi. PROCEDURE: After informed consent, the patient was prepped and draped in the usual sterile fashion. Lidocaine 2% was given in the right groin for local anesthesia. Using micropuncture technique, 6-Fr ench sheath was introduced into right common femoral artery. Using the usual diagnostic catheter, left heart catheterization and coronary angiogram was performed. The patient tolerated the procedure well. FINDINGS: 1. Left main coronary artery is patent. 2. LAD is a small caliber artery. Mid to distal LAD is completely occluded. The diagonal artery is a small caliber artery. Proximal diagonal artery has 90% to 95% stenosis. 3. Left circumflex is small caliber artery and has diffuse disease. 4. Right coronary artery is a dominant artery. Proximal and mid common distal right coronary artery is patent; however, PDA has a 99% stenosis; however, this is also a small caliber artery. 5. LV ejection fraction is approximately 10% to 15%. Severe global hypokinesis. EDP is 35. No grad ient across the aortic valve. IMPRESSION: 1. Severe, diffuse coronary artery disease, as discussed above. Not amenable for coronary artery byp ass grafting or coronary stenting. 2. Severe ischemic cardiomyopathy with EF of approximately 10% to 15%. RECOMMENDATIONS: Recommend aggressive medical management and defibrillator therapy. Serge Nunez MD cc: [id number] TT: 12/15/2016 20:19:58 ln
--- NOTE | 2016-12-16 21:52 | PCM.HF ---
Heart Failure Core Measure - Heart Failure Ejection Fraction: Less Than 40 % Left Ventricular Function to be assessed after discharge: No ELIZABETH Inhibitor Prescribed: Yes Beta-Desire Prescribed: Metoprolol Succinate Angiotensin II Receptor Desire Prescribed: No Contraindication/Reason for not providing: ELIZABETH-I prescribed AnticoagulationTherapy for Atrial Fibrillation/Atrialflutter: No Contraindication/Reason for not providing: Not medically relevant Aldosterone Antagonist Prescribed: No Contraindication/Reason for not providing: Not medically relevant Hydralazine Nitrate Prescribed: No Contraindication/Reason for not providing: Not medically relevant Implantable Cardioverter Defibrillator Therapy: Yes Cardiac Resynchronization Therapy Prescribed: No Contraindication/Reason for not providing: Not medically relevant - Follow up Will be discharged to: Home Follow Up Date (must be within 7 days from discharge): 12/19/16 Follow Up Time: 09:00
--- NOTE | 2016-12-17 15:30 | CARD ---
APPROVED REPORT EKG Measurement Heart [id number] <Conclusion> Sinus tachycardia with premature supraventricular complexes Possible Left atrial enlargement Left axis deviation Right bundle branch block Possible Lateral infarct, age undetermined Abnormal ECG
== END 2016-12-13 19:37 | disposition home or self-care (01) | DRG 544 ==
LOC: C.ER 22:26 → SUPCPDRO 22:26 → C.6T 23:43 → C.9I 12-08 01:28 → C.5T 12-09 07:47 → OBSVTOIN 12-11 13:34
PROVIDERS: ADMIT Internal Medicine; ATTEND Internal Medicine
PROC: 5A09357 Assistance with Respiratory Ventilation, Less than 24 Consecutive Hours, Continuous Positive Airway Pressure (ICD-10-PCS; 2016-12-08)
PROC: 4A023N7 Measurement of Cardiac Sampling and Pressure, Left Heart, Percutaneous Approach (ICD-10-PCS; principal; 2016-12-11)
PROC: B2151ZZ Fluoroscopy of Left Heart using Low Osmolar Contrast (ICD-10-PCS; 2016-12-11)
PROC: B2111ZZ Fluoroscopy of Multiple Coronary Arteries using Low Osmolar Contrast (ICD-10-PCS; 2016-12-11)
DX: I11.0 Hypertensive heart disease with heart failure (principal); J96.90 Respiratory failure, unspecified, unspecified whether with hypoxia or hypercapnia; E11.65 Type 2 diabetes mellitus with hyperglycemia; I42.9 Cardiomyopathy, unspecified; E87.6 Hypokalemia; I50.23 Acute on chronic systolic (congestive) heart failure; D72.829 Elevated white blood cell count, unspecified; I25.110 Atherosclerotic heart disease of native coronary artery with unstable angina pectoris; R00.0 Tachycardia, unspecified; Z79.84 Long term (current) use of oral hypoglycemic drugs; Z87.891 Personal history of nicotine dependence; Z22.322 Carrier or suspected carrier of Methicillin resistant Staphylococcus aureus

== ENCOUNTER 2017-02-19 12:37 | Observation (INO) | payer OTHER ==
[2017-02-19 12:48] VITALS: BMI 18.7
[2017-02-19 13:42] LABS: BASO # 0.1 K/uL (0.0-0.2); BASO % 0.6 % (0.0-2.0); EOS # 0.1 K/uL (0.0-0.7); EOS % 0.7 % (0.0-4.0); HEMATOCRIT 40.1 % (35.0-51.0); LYMPH # 1.5 K/uL (1.0-4.3); LYMPH % 16.3 % (20.0-40.0); MEAN CELL VOLUME 88.6 fL (80.0-94.0); MEAN CORPUSCULAR HEMOGLOBIN 29.4 pg (27.0-31.0); MEAN CORPUSCULAR HGB CONC 33.2 g/dL (33.0-37.0); MEAN PLATELET VOLUME 10.4 fL (7.2-11.7); MONO # 0.6 K/uL (0.0-0.8); MONO % 6.9 % (0.0-10.0); RED CELL DISTRIBUTION WIDTH 14.2 % (11.5-14.5); WHITE BLOOD COUNT 9.4 K/uL (4.8-10.8)
[2017-02-19 13:56] LABS: CHLORIDE 98 mmol/L (98-107); INR 1.5; POTASSIUM 4.2 mmol/L (3.6-5.2); SODIUM 134 mmol/L (132-148)
[2017-02-19 13:58] LABS: BILIRUBIN,TOTAL 1.2 mg/dL (0.2-1.3); CARBON DIOXIDE 23 mmol/L (22-30); GFR AFRICAN-AMERICAN > 60
[2017-02-19 13:59] LABS: ALB/GLOB RATIO 1.2 (1.0-2.1); ALKALINE PHOSPHATASE 74 U/L (38-126); ALT/SGPT 26 U/L (21-72); AST/SGOT 29 U/L (17-59); BLOOD UREA NITROGEN 21 mg/dL (9-20); CALCIUM 8.8 mg/dl (8.6-10.4); GLUCOSE,RANDOM 261 mg/dL (75-110); TOTAL PROTEIN 7.7 g/dL (6.3-8.3)
--- NOTE | 2017-02-19 14:39 | RAD ---
PROCEDURE: CHEST RADIOGRAPH, 1 VIEW HISTORY: SOB COMPARISON: 12/09/2016 FINDINGS: LUNGS: Consolidative changes at the lung bases improved compared to the prior study. PLEURA: Persistent albeit decrease in bilateral pleural effusions. CARDIOVASCULAR: Cardiomegaly. Position/ configuration of pacemaker Satisfactory. OSSEOUS STRUCTURES: No significant abnormalities. VISUALIZED UPPER ABDOMEN: Normal. OTHER FINDINGS: None. IMPRESSION: Decrease in pleural effusions and compressive atelectasis. Or
--- NOTE | 2017-02-19 15:07 | C.PDOC ---
Time Seen by Provider: 02/19/17 13:08 Chief Complaint (Nursing): Shortness Of Breath History Per: Patient, Family () Onset/Duration Of Symptoms: Days (3) Current Symptoms Are (Timing): Still Present Exacerbating Factor(s): Exertion, Laying Flat Severity: Moderate Associated Symptoms: Productive Cough Reports Recently: Hospitalized Additional History Per: Prior Records Past Medical History Reviewed: Historical Data, Nursing Documentation, Vital Signs Vital Signs: Last Vital Signs Temp 97.4 F L 02/19/17 12:48 Pulse 90 02/19/17 14:51 Resp 22 02/19/17 14:51 BP 126/91 H 02/19/17 14:51 Pulse Ox 99 02/19/17 15:09 - Medical History PMH: CAD, CHF, Diabetes, HTN Surgical History: Pacemaker - [facility] Procedures ASSISTANCE WITH RESPIRATORY VENTILATION, <24 HRS, CPAP (12/11/16) FLUOROSCOPY OF LEFT HEART USING LOW OSMOLAR CONTRAST (12/11/16) FLUOROSCOPY OF MULT COR ART USING L OSM CONTRAST (12/11/16) MEASURE OF CARDIAC SAMPL & PRESSURE, L HEART, PERC APPROACH (12/11/16) Family History: States: Unknown Family Hx - Social History Hx Tobacco Use: No Hx Alcohol Use: No Hx Substance Use: No - Immunization History Hx Tetanus Toxoid Vaccination: No Hx Influenza Vaccination: No Hx Pneumococcal Vaccination: No Review Of Systems Except As Marked, All Systems Reviewed And Found Negative. Constitutional: Negative for: Fever, Weakness Cardiovascular: Positive for: Orthopnea. Negative for: Chest Pain Respiratory: Positive for: Shortness of Breath, SOB with Excertion. Negative for: Hemoptysis Gastrointestinal: Negative for: Vomiting, Abdominal Pain Musculoskeletal: Negative for: Neck Pain, Back Pain, Leg Pain Skin: Negative for: Rash Neurological: Negative for: Weakness, Numbness Physical Exam - Physical Exam Appears: No Acute Distress, Chronically Ill Skin: Normal Color, Warm, Dry Head: Atraumatic, Normacephalic Eye(s): bilateral: PERRL, EOMI Neck: Normal ROM, Supple Cardiovascular: Rhythm Irregular Respiratory: No Accessory Muscle Use, Rales (at bases) Gastrointestinal/Abdominal: Soft, No Tenderness Extremity: Normal ROM, No Calf Tenderness Neurological/Psych: Oriented x3, Normal Motor, Normal Sensation ED Course And Treatment - Laboratory Results Result Diagrams: 02/19/17 13:34 02/19/17 13:34 Interpretation Of Abnormal: Elevated BNP ECG: Interpreted By Me, Viewed By Me ECG Rhythm: Sinus Rhythm, PVC, Nonspecific Changes ECG Interpretation: Abnormal Rate From EC O2 Sat by Pulse Oximetry: 99 Pulse Ox Interpretation: Normal - Radiology CXR: Viewed By Me, Read By Radiologist CXR Interpretation: Yes: Cardiomegaly, Other (b/l small pleural effusions) Progress - Interventions Interventions:: Observation, Oxygen - Medications Administered Oral: Aspirin Intravenous: Diuretic - Data Reviewed Data Reviewed: Lab, Diagnostic imaging, EKG, Old records - Patient Status Patient status: Partially improved - Continuity of Care Discussed patient case with:: Patient, Family-HIPPA compliant, ED Nurse, On- call PMD-pt unassigned Disposition Discussed With : Varsha Beth Comment: She accepted pt on hospitalist service. Doctor Will See Patient In The: Hospital Counseled Patient/Family Regarding: Studies Performed, Diagnosis - Disposition Disposition: HOSPITALIZED Disposition Time: 15:18 Condition: FAIR - Clinical Impression Clinical Impression: Acute exacerbation of congestive heart failure
--- NOTE | 2017-02-19 16:08 | CP.PCM.HP ---
History of Present Illness - History of Present Illness History of Present Illness: CC: Short of breath HPI: Patient is a 61 year old male with a history of CAD, CHF, CAD, IDDM, and HTN. He is here with his who is translating in the room. She brought him to the ED because of his worsening shortness of breath which started about 3 days ago. He also had some chest pain but has since resolved. He has also been coughing especially at night some clear sputum. According to the he ran out of his Lasix about 3 days ago. He also noticed his right leg seemed more swollen than his left leg. He currently denies fever, chills, changes in vision , changes in hearing, chest pain, palpitations, nausea, vomiting, diarrhea, acid reflux, anxiety, depression, joint pain or swelling. He has been sleeping in a reclined position for many months. PMHx: HTN, DM2, CHF, CAD PSHx: AICD placement 11/2016 Meds: Metformin 500 mg PO BID, Lisinopril 5 mg, Lopressor 25 mg bid, Aspirin 81mg, Lasix 40 mg Allergies: NKDA FamHx: Mom DM; Dad HTN SocHx: quit tobacco in 1994 (5cig/day x 20yrs); Denies EtOH or illicit drug use ; Lives in apt with , retired. PMD: Dr. Whittaker Timber Hand: Dr. [place] Present on Admission - Present on Admission Any Indicators Present on Admission: No History of DVT/PE: No History of Uncontrolled Diabetes: No Urinary Catheter: No Decubitus Ulcer Present: No History Surgical Site Infection Following: None Review of Systems - Review of Systems All systems: reviewed and no additional remarkable complaints except - Constitutional Constitutional: absent: Chills, Fever - EENT Eyes: absent: Change in Vision Ears: absent: Dizziness - Cardiovascular Cardiovascular: Chest Pain, Dyspnea, Leg Edema. absent: Palpitations - Respiratory Respiratory: Cough, Dyspnea, Dyspnea on Exertion. absent: Hemoptysis - Gastrointestinal Gastrointestinal: absent: Diarrhea, Nausea, Vomiting - Genitourinary Genitourinary: absent: Dysuria - Musculoskeletal Musculoskeletal: absent: Numbness, Tingling - Integumentary Integumentary: Swelling (right leg) - Neurological Neurological: absent: Numbness, Focal Weakness, Tremor - Psychiatric Psychiatric: absent: Anxiety - Endocrine Endocrine: absent: Palpitations Past Patient History - Infectious Disease Hx of Infectious Diseases: None - Past Medical History & Family History Past Medical History?: Yes - Past Social History Smoking Status: Former Smoker - CARDIAC Hx Congestive Heart Failure: Yes Hx Hypertension: Yes Hx Pacemaker: Yes - PULMONARY Hx Respiratory Disorders: No - NEUROLOGICAL Hx Neurological Disorder: No - HEENT Hx HEENT Problems: Yes Other/Comment: glasses for reading - RENAL Hx Chronic Kidney Disease: No - ENDOCRINE/METABOLIC Hx Endocrine Disorders: Yes Hx Diabetes Mellitus Type 2: Yes - HEMATOLOGICAL/ONCOLOGICAL Hx Blood Disorders: No - INTEGUMENTARY Hx Dermatological Problems: No - MUSCULOSKELETAL/RHEUMATOLOGICAL Hx Musculoskeletal Disorders: No Hx Falls: No - GASTROINTESTINAL Hx Gastrointestinal Disorders: No - GENITOURINARY/GYNECOLOGICAL Hx Genitourinary Disorders: No - PSYCHIATRIC Hx Substance Use: No - SURGICAL HISTORY Hx Surgeries: No Other/Comment: PACEMAKER - ANESTHESIA Hx Anesthesia: Yes Meds Allergies/Adverse Reactions: Allergies Allergy/AdvReac Type Severity Reaction Status Date / Time No Known Allergies Allergy Verified 02/19/17 12:46 Physical Exam - Constitutional Appears: Non-toxic, No Acute Distress - Head Exam Head Exam: ATRAUMATIC, NORMAL INSPECTION, NORMOCEPHALIC - Eye Exam Eye Exam: Normal appearance, PERRL. absent: Nystagmus, Scleral icterus Pupil Exam: NORMAL ACCOMODATION, PERRL - ENT Exam ENT Exam: Mucous Membranes Moist, Normal Exam - Neck Exam Neck exam: Positive for: Normal Inspection - Respiratory Exam Respiratory Exam: Rales. absent: Clear to Auscultation Bilateral, Rhonchi, Wheezes Additional comments: Surgical scar over the upper side of his left chest - Cardiovascular Exam Cardiovascular Exam: REGULAR RHYTHM, JVD, RRR, +S1, +S2, Systolic Murmur. absent: Gallop, Rubs - GI/Abdominal Exam GI & Abdominal Exam: Normal Bowel Sounds, Soft. absent: Guarding, Organomegaly , Rebound, Tenderness - Extremities Exam Extremities exam: Positive for: pedal edema (trace pedal edma). Negative for: calf tenderness, tenderness - Back Exam Back exam: NORMAL INSPECTION - Neurological Exam Neurological exam: Alert, Oriented x3 - Psychiatric Exam Psychiatric exam: Normal Affect, Normal Mood Results - Vital Signs Recent Vital Signs: Last Vital Signs Temp 97.4 F L 02/19/17 12:48 Pulse 90 02/19/17 14:51 Resp 22 02/19/17 14:51 BP 126/91 H 02/19/17 14:51 Pulse Ox 99 02/19/17 15:18 - Labs Result Diagrams: 02/19/17 13:34 02/19/17 13:34 Assessment & Plan (1) Acute exacerbation of congestive heart failure Assessment and Plan: Patient was admitted last November which he had an echo which showed an an EF of less than 20%. He also had a cardiac cath which showed severe CAD that was not amenable to stent or graft replacement. Please see EMR for full reports. He also was transferred to [place] for an AICD placement. His BNP is elevated from his last admission, this admission it was 8640. His chest x:ray did show venous congestion with some pleural effusions which were decreased from his last study. Cardiac enzymes were negative in the ED. Will do follow up cardiac enzymes Q6H x3 (1st set was negative in the ED), follow up morning cbc, cmp, mag, phos, Hbg a1c, lipid panel, TSH and free T4. Dr. [place] is consulted and was notified by the ED. Lasix 40mg Q12H IV, cont I&O, daily weight changes. Patient admitted to obs/tele, on heart healthy diet, vital signs q4h, full code. Status: Acute Priority: High (2) Cough Assessment and Plan: Will get Legionella urine antigen, Strep Pneumonia urine antigen, Mycoplasma, and Group B Strep culture. Hold antibiotics for now. Status: Acute (3) CAD (coronary artery disease) Assessment and Plan: Aspirin 81mg Status: Chronic (4) HTN (hypertension) Assessment and Plan: continue Lopressor 25mg bid, Zestril 2.5mg. Status: Chronic (5) Hyperlipidemia Assessment and Plan: continue his statin with equivalent of 80mg Zocor daily. Status: Acute (6) Diabetes Assessment and Plan: continue his home Metformin 500mg bid, Glipizide 10mg, accu checks ACHS with sliding scale. Status: Chronic (7) Prophylactic measure Assessment and Plan: Lovenox 40mg SC Pepcid 20mg PO bid Will hold SCDs for now due to lower leg swelling. Will get a duplex to rule out DVT. Status: Acute
[2017-02-19] MEDS: Enoxaparin 40 mg Syringe SC SCH (18:40)
[2017-02-19] MEDS: (Novolin R) Insulin Human Regular 100 units/ml vial SC SCH (21:43)
[2017-02-20 07:12] LABS: BASO % 0.5 % (0.0-2.0); EOS # 0.1 K/uL (0.0-0.7); EOS % 1.3 % (0.0-4.0); HEMATOCRIT 38.5 % (35.0-51.0); LYMPH # 2.1 K/uL (1.0-4.3); LYMPH % 23.7 % (20.0-40.0); MEAN CELL VOLUME 87.3 fL (80.0-94.0); MEAN CORPUSCULAR HEMOGLOBIN 29.3 pg (27.0-31.0); MEAN CORPUSCULAR HGB CONC 33.6 g/dL (33.0-37.0); MONO # 0.7 K/uL (0.0-0.8); MONO % 8.2 % (0.0-10.0); RED CELL DISTRIBUTION WIDTH 14.2 % (11.5-14.5); WHITE BLOOD COUNT 8.9 K/uL (4.8-10.8)
[2017-02-20 07:24] LABS: CHLORIDE 98 mmol/L (98-107); POTASSIUM 3.8 mmol/L (3.6-5.2); SODIUM 135 mmol/L (132-148)
[2017-02-20 07:26] LABS: BILIRUBIN,TOTAL 1.3 mg/dL (0.2-1.3); CARBON DIOXIDE 27 mmol/L (22-30); CHOLESTEROL 142 mg/dL (0-199); GFR AFRICAN-AMERICAN > 60
[2017-02-20 07:27] LABS: ALB/GLOB RATIO 1.1 (1.0-2.1); ALKALINE PHOSPHATASE 70 U/L (38-126); ALT/SGPT 27 U/L (21-72); AST/SGOT 21 U/L (17-59); BLOOD UREA NITROGEN 22 mg/dL (9-20); CALCIUM 9.2 mg/dl (8.6-10.4); GLUCOSE,RANDOM 148 mg/dL (75-110); TOTAL PROTEIN 7.1 g/dL (6.3-8.3)
[2017-02-20] MEDS: (Novolin R) Insulin Human Regular 100 units/ml vial SC SCH ×4 (07:29→21:40)
[2017-02-20 07:57] LABS: THYROID STIMULATING HORMONE 2.23 mIU/L (0.46-4.68)
[2017-02-20] MEDS: Enoxaparin 40 mg Syringe SC SCH (09:17)
--- NOTE | 2017-02-20 14:47 | CP.PCM.PN ---
Subjective - Date & Time of Evaluation Date of Evaluation: 02/20/17 Time of Evaluation: 07:25 - Subjective Subjective: PGy1 progress note for Dr. Beth: Patient seen and examined. Patient states his breathing has improved significantly. Patient also states his lower extremity edema has improved. Patient states he did not take lasix for two days prior to admission. Objective - Vital Signs/Intake and Output Vital Signs (last 24 hours): Temp Pulse Resp BP Pulse Ox 98.2 F 92 H 18 123/85 97 02/20/17 08:00 02/20/17 08:00 02/20/17 08:00 02/20/17 08:00 02/20/17 08:00 - Medications Medications: Current Medications Aspirin (Aspirin Chewable) 81 mg PO DAILY [facility] Last Admin: 02/20/17 09:16 Dose: 81 mg Enoxaparin Sodium (Lovenox) 40 mg SC DAILY [facility] Last Admin: 02/20/17 09:17 Dose: 40 mg Famotidine (Pepcid) 20 mg PO BID [facility] Last Admin: 02/20/17 09:16 Dose: 20 mg Furosemide (Lasix) 40 mg IVP Q12H [facility] Last Admin: 02/20/17 05:54 Dose: 40 mg Glipizide (Glucotrol) 10 mg PO DAILY [facility] Last Admin: 02/20/17 09:22 Dose: 10 mg Insulin Human Regular (Novolin R) 0 unit SC [facility] PRN Reason: Protocol Last Admin: 02/20/17 11:11 Dose: 2 unit Lisinopril (Zestril) 10 mg PO DAILY [facility] Metformin HCl (Glucophage) 500 mg PO BID [facility] Last Admin: 02/20/17 09:17 Dose: 500 mg Metoprolol Tartrate (Lopressor) 50 mg PO BID [facility] Last Admin: 02/20/17 09:16 Dose: 50 mg Rosuvastatin Calcium (Crestor) 20 mg PO HS [facility] Last Admin: 02/19/17 21:42 Dose: 20 mg - Labs Labs: 02/20/17 06:53 02/20/17 06:53 PT 16.9 SECONDS (9.7-12.2) H 02/19/17 13:34 INR 1.5 02/19/17 13:34 APTT 36 SECONDS (21-34) H 02/19/17 13:34 - Constitutional Appears: Non-toxic, No Acute Distress - Head Exam Head Exam: ATRAUMATIC, NORMOCEPHALIC - Eye Exam Eye Exam: EOMI - ENT Exam ENT Exam: Mucous Membranes Moist - Respiratory Exam Respiratory Exam: NORMAL BREATHING PATTERN. absent: Rhonchi, Wheezes - Cardiovascular Exam Cardiovascular Exam: +S1, +S2, +S4 - GI/Abdominal Exam GI & Abdominal Exam: Soft, Normal Bowel Sounds. absent: Tenderness - Extremities Exam Extremities Exam: Pedal Edema (1+ b/l) - Neurological Exam Neurological Exam: Alert, Awake - Psychiatric Exam Psychiatric exam: Normal Affect - Skin Skin Exam: Warm Assessment and Plan - Assessment and Plan (Free Text) Assessment: (1) Acute exacerbation of congestive heart failure Assessment and Plan: Patient had cardiac cath on 12/15/16 that showed severe ischemic cardiomyopathy with ER 10-15% Patient had AICD placed at [place] BNP 8640 CXR with bilateral pleural effusions, compressive atelectasis troponins negative Dr. [place] consulted, help appreciated Lasix 40mg Q12H IV, cont I&O, daily weight changes. Status: Acute Priority: High (2) Cough Assessment and Plan: Legionella negative Strep Pneumonia urine antigen F/U Mycoplasma, Group B Strep culture Hold antibiotics for now. Status: Acute (3) CAD (coronary artery disease) Assessment and Plan: Aspirin 81mg Status: Chronic (4) HTN (hypertension) Assessment and Plan: continue Lopressor 25mg bid Zestril increased to 10mg per cardio team Status: Chronic (5) Hyperlipidemia Assessment and Plan: continue his statin with equivalent of 80mg Zocor daily= crestor 20mg Status: Acute (6) Diabetes Assessment and Plan: continue his home Metformin 500mg bid, Glipizide 10mg, accu checks ACHS with sliding scale A1c 8.1 Status: Chronic (7) Prophylactic measure Assessment and Plan: Lovenox 40mg SC Pepcid 20mg PO bid Will hold SCDs for now due to lower leg swelling- doppler negative for DVT
--- NOTE | 2017-02-20 15:07 | VASCLAB ---
PROCEDURE: Lower Extremity Venous Duplex Exam. HISTORY: lower leg swelling, rule out DVT. PRIORS: None. TECHNIQUE: Bilateral common femoral, femoral, popliteal and posterior tibial, peroneal and great saphenous veins were evaluated. Flow was assessed with color Doppler, compressibility, assessment of phasic flow and augmentation response. Report prepared by Nabor Calvert, SHARON, RVT FINDINGS: RIGHT: 1. Common Femoral Vein: 1.1. Compressibility - Fully compressible: Thrombus - None : Flow - Phasic: Augmentation -Normal: Reflux - None. 2. Femoral Vein: 2.1. Compressibility - Fully compressible: Thrombus - None : Flow - Phasic: Augmentation -Normal: Reflux - None. 3. Popliteal Vein: 3.1. Compressibility - Fully compressible: Thrombus - None : Flow - Phasic: Augmentation -Normal: Reflux - None. 4. Posterior Tibial Vein: 4.1. Compressibility - Fully compressible: Thrombus - None: Flow - Phasic: Augmentation -Normal: Reflux - None. 5. Peroneal Vein: 5.1. Compressibility - Fully compressible: Thrombus - None: Flow - Phasic: Augmentation -Normal: Reflux - None. 6. Great Saphenous Vein: 6.1. Compressibility - Fully compressible: Thrombus - None: Flow - Phasic: Augmentation - Normal: Reflux - None. LEFT: 1. Common Femoral Vein: 1.1. Compressibility - Fully compressible: Thrombus - None: Flow - Phasic: Augmentation -Normal: Reflux - None. 2. Femoral Vein: 2.1. Compressibility - Fully compressible: Thrombus - None: Flow - Phasic: Augmentation -Normal: Reflux - None. 3. Popliteal Vein: 3.1. Compressibility - Fully compressible: Thrombus - None : Flow - Phasic: Augmentation -Normal: Reflux - None. 4. Posterior Tibial Vein: 4.1. Compressibility - Fully compressible: Thrombus - None: Flow - Phasic: Augmentation -Normal: Reflux - None. 5. Peroneal Vein: 5.1. Compressibility - Fully compressible: Thrombus - None: Flow - Phasic: Augmentation -Normal: Reflux - None. 6. Great Saphenous Vein: 6.1. Compressibility - Fully compressible: Thrombus - None: Flow - Phasic: Augmentation - Normal: Reflux - None. OTHER FINDINGS: Right: None significant. Left: None significant. IMPRESSION: Right: No evidence of deep or superficial vein thrombosis of the right lower extremity. Normal valve function noted of the right side. Left: No evidence of deep or superficial vein thrombosis of the left lower extremity. Normal valve function noted of the left side.
--- NOTE | 2017-02-20 15:48 | CP.PCM.CON ---
History of Present Illness - History of Present Illness History of Present Illness: Consult note for Dr. Colorado 61 y/o M with a PMH of CAD, CHF, IDDM, and HTN presents with worsening shortness of breath for 3 days on 02/19/17. Pt also describes chest pain associated with his trouble breathing, but has since subsided. Pt describes having progressively worse cough, which is productive in nature. Pt described his sputum as clear. During this time, patient also noticed his legs beginning to swell more than usual. The patient states he is normally compliant with medication but he ran out of lasix several days ago. Pt does have orthopnea which does not allow him to sleep laying down flat. Today, pt reports being much better with great improvement in his SOB since receiving IV Lasix in the hospital. Pt with no new complaints at this time. He denies CP, N/V/D, fever, chills, headaches. PMH: HTN, IDDM, CHF, CAD PSH: AICD Meds: As per NOV Allergies: NKDA FMHx: HTN and DM Social Hx: Former tobacco user, 1/4 pack x 20 years. Denies alcohol or illicit drug us. Review of Systems - Constitutional Constitutional: Fatigue. absent: Fever - EENT Eyes: absent: Blurred Vision, Change in Vision - Cardiovascular Cardiovascular: Chest Pain. absent: Irregular Heart Rhythm - Respiratory Respiratory: Cough, Dyspnea - Gastrointestinal Gastrointestinal: absent: Diarrhea, Vomiting - Musculoskeletal Musculoskeletal: absent: Muscle Weakness, Myalgias - Integumentary Integumentary: Swelling. absent: New Lesions - Neurological Neurological: absent: Syncope, Tingling Past Patient History - Infectious Disease Hx of Infectious Diseases: None - Past Medical History & Family History Past Medical History?: Yes - Past Social History Smoking Status: Never Smoked - CARDIAC Hx Cardiac Disorders: Yes Hx Congestive Heart Failure: Yes Hx Hypertension: Yes Hx Pacemaker: Yes - PULMONARY Hx Respiratory Disorders: No - NEUROLOGICAL Hx Neurological Disorder: No - HEENT Hx HEENT Problems: Yes Other/Comment: glasses for reading - RENAL Hx Chronic Kidney Disease: No - ENDOCRINE/METABOLIC Hx Endocrine Disorders: Yes Hx Diabetes Mellitus Type 2: Yes - HEMATOLOGICAL/ONCOLOGICAL Hx Blood Disorders: No - INTEGUMENTARY Hx Dermatological Problems: No - MUSCULOSKELETAL/RHEUMATOLOGICAL Hx Falls: No - GASTROINTESTINAL Hx Gastrointestinal Disorders: No - GENITOURINARY/GYNECOLOGICAL Hx Genitourinary Disorders: No - PSYCHIATRIC Hx Psychophysiologic Disorder: No Hx Substance Use: No - SURGICAL HISTORY Hx Surgeries: No Other/Comment: PACEMAKER - ANESTHESIA Hx Anesthesia: Yes Hx Anesthesia Reactions: No Meds Allergies/Adverse Reactions: Allergies Allergy/AdvReac Type Severity Reaction Status Date / Time No Known Allergies Allergy Verified 02/19/17 12:46 - Medications Medications: Current Medications Aspirin (Aspirin Chewable) 81 mg PO DAILY [facility] Last Admin: 02/20/17 09:16 Dose: 81 mg Enoxaparin Sodium (Lovenox) 40 mg SC DAILY [facility] Last Admin: 02/20/17 09:17 Dose: 40 mg Famotidine (Pepcid) 20 mg PO BID [facility] Last Admin: 02/20/17 09:16 Dose: 20 mg Furosemide (Lasix) 40 mg IVP Q12H [facility] Last Admin: 02/20/17 05:54 Dose: 40 mg Glipizide (Glucotrol) 10 mg PO DAILY [facility] Last Admin: 02/20/17 09:22 Dose: 10 mg Insulin Human Regular (Novolin R) 0 unit SC [facility] PRN Reason: Protocol Last Admin: 02/20/17 11:11 Dose: 2 unit Lisinopril (Zestril) 10 mg PO DAILY [facility] Metformin HCl (Glucophage) 500 mg PO BID [facility] Last Admin: 02/20/17 09:17 Dose: 500 mg Metoprolol Tartrate (Lopressor) 50 mg PO BID [facility] Last Admin: 02/20/17 09:16 Dose: 50 mg Rosuvastatin Calcium (Crestor) 20 mg PO HS [facility] Last Admin: 02/19/17 21:42 Dose: 20 mg Physical Exam - Constitutional Appears: Well, No Acute Distress - Head Exam Head Exam: ATRAUMATIC, NORMAL INSPECTION, NORMOCEPHALIC - ENT Exam ENT Exam: Mucous Membranes Moist - Respiratory Exam Respiratory Exam: Clear to Auscultation Bilateral, NORMAL BREATHING PATTERN. absent: Rales - Cardiovascular Exam Cardiovascular Exam: RRR, +S1, +S2 - GI/Abdominal Exam GI & Abdominal Exam: Normal Bowel Sounds, Soft. absent: Tenderness - Extremities Exam Extremities exam: Positive for: pedal edema (+1 b/l) - Neurological Exam Neurological exam: Alert, Oriented x3 - Psychiatric Exam Psychiatric exam: Normal Affect, Normal Mood - Skin Skin Exam: Intact, Normal Color, Warm Results - Vital Signs Recent Vital Signs: Last Vital Signs Temp 98.2 F 02/20/17 08:00 Pulse 92 H 02/20/17 08:00 Resp 18 02/20/17 08:00 BP 123/85 02/20/17 08:00 Pulse Ox 97 02/20/17 08:00 - Labs Result Diagrams: 02/20/17 06:53 02/20/17 06:53 Labs: Laboratory Results - last 24 hr 02/19/17 02/19/17 02/19/17 18:00 19:49 19:49 WBC RBC Hgb Hct MCV MCH MCHC RDW Plt Count MPV Neut % (Auto) Lymph % (Auto) Meigs % (Auto) Eos % (Auto) Baso % (Auto) Neut # Lymph # Meigs # Eos # Baso # Sodium Potassium Chloride Carbon Dioxide Anion Gap BUN Creatinine Est GFR ( Amer) Est GFR (Non-Af Amer) POC Glucose (mg/dL) 195 H Random Glucose Hemoglobin A1c Calcium Total Bilirubin AST ALT Alkaline Phosphatase Total Creatine Kinase 28 L CK-MB (Mass) 0.69 Troponin I, Quant < 0.0120 Total Protein Albumin Globulin Albumin/Globulin Ratio Triglycerides Cholesterol LDL Cholesterol Direct HDL Cholesterol Free T4 1.32 TSH 3rd Generation Ur L.pneumophila Ag 02/19/17 02/19/17 02/20/17 19:50 21:18 02:51 WBC RBC Hgb Hct MCV MCH MCHC RDW Plt Count MPV Neut % (Auto) Lymph % (Auto) Meigs % (Auto) Eos % (Auto) Baso % (Auto) Neut # Lymph # Meigs # Eos # Baso # Sodium Potassium Chloride Carbon Dioxide Anion Gap BUN Creatinine Est GFR ( Amer) Est GFR (Non-Af Amer) POC Glucose (mg/dL) 230 H Random Glucose Hemoglobin A1c Calcium Total Bilirubin AST ALT Alkaline Phosphatase Total Creatine Kinase 21 L CK-MB (Mass) 0.55 Troponin I, Quant < 0.0120 Total Protein Albumin Globulin Albumin/Globulin Ratio Triglycerides Cholesterol LDL Cholesterol Direct HDL Cholesterol Free T4 TSH 3rd Generation Ur L.pneumophila Ag Negative 02/20/17 02/20/17 02/20/17 06:10 06:53 06:53 WBC 8.9 RBC 4.41 Hgb 12.9 Hct 38.5 MCV 87.3 MCH 29.3 MCHC 33.6 RDW 14.2 Plt Count 196 MPV 10.0 Neut % (Auto) 66.3 Lymph % (Auto) 23.7 Meigs % (Auto) 8.2 Eos % (Auto) 1.3 Baso % (Auto) 0.5 Neut # 5.9 Lymph # 2.1 Meigs # 0.7 Eos # 0.1 Baso # 0.0 Sodium 135 Potassium 3.8 Chloride 98 Carbon Dioxide 27 Anion Gap 14 BUN 22 H Creatinine 0.9 Est GFR ( Amer) > 60 Est GFR (Non-Af Amer) > 60 POC Glucose (mg/dL) 138 H Random Glucose 148 H Hemoglobin A1c Calcium 9.2 Total Bilirubin 1.3 AST 21 ALT 27 Alkaline Phosphatase 70 Total Creatine Kinase CK-MB (Mass) Troponin I, Quant Total Protein 7.1 Albumin 3.7 Globulin 3.4 Albumin/Globulin Ratio 1.1 Triglycerides 73 D Cholesterol 142 LDL Cholesterol Direct 90 HDL Cholesterol 35 Free T4 TSH 3rd Generation 2.23 Ur L.pneumophila Ag 02/20/17 02/20/17 06:53 10:55 WBC RBC Hgb Hct MCV MCH MCHC RDW Plt Count MPV Neut % (Auto) Lymph % (Auto) Meigs % (Auto) Eos % (Auto) Baso % (Auto) Neut # Lymph # Meigs # Eos # Baso # Sodium Potassium Chloride Carbon Dioxide Anion Gap BUN Creatinine Est GFR ( Amer) Est GFR (Non-Af Amer) POC Glucose (mg/dL) 249 H Random Glucose Hemoglobin A1c 8.1 H Calcium Total Bilirubin AST ALT Alkaline Phosphatase Total Creatine Kinase CK-MB (Mass) Troponin I, Quant Total Protein Albumin Globulin Albumin/Globulin Ratio Triglycerides Cholesterol LDL Cholesterol Direct HDL Cholesterol Free T4 TSH 3rd Generation Ur L.pneumophila Ag Assessment & Plan (1) Acute exacerbation of congestive heart failure Assessment and Plan: CHF exacerbation likely secondary to running out home medication Pt with elevated BNP on admission Pt will continue current home medical regimen Lisinopril will be changed to 10 mg daily Continue to monitor for signs of respiratory distress Status: Acute Priority: High
[2017-02-20 17:39] VITALS: RESP 20
[2017-02-21] MEDS: (Novolin R) Insulin Human Regular 100 units/ml vial SC SCH ×3 (07:18→18:07)
[2017-02-21 07:38] LABS: BASO % 0.6 % (0.0-2.0); EOS # 0.2 K/uL (0.0-0.7); HEMATOCRIT 38.4 % (35.0-51.0); LYMPH # 1.9 K/uL (1.0-4.3); LYMPH % 23.1 % (20.0-40.0); MEAN CELL VOLUME 87.5 fL (80.0-94.0); MEAN CORPUSCULAR HEMOGLOBIN 29.2 pg (27.0-31.0); MEAN CORPUSCULAR HGB CONC 33.3 g/dL (33.0-37.0); MEAN PLATELET VOLUME 9.9 fL (7.2-11.7); MONO # 0.7 K/uL (0.0-0.8); MONO % 8.6 % (0.0-10.0); RED CELL DISTRIBUTION WIDTH 13.9 % (11.5-14.5); WHITE BLOOD COUNT 8.1 K/uL (4.8-10.8)
[2017-02-21 08:40] LABS: CHLORIDE 96 mmol/L (98-107); POTASSIUM 3.5 mmol/L (3.6-5.2); SODIUM 135 mmol/L (132-148)
[2017-02-21 08:42] LABS: ALB/GLOB RATIO 1.1 (1.0-2.1); ALKALINE PHOSPHATASE 57 U/L (38-126); AST/SGOT 19 U/L (17-59); BILIRUBIN,TOTAL 1.2 mg/dL (0.2-1.3); BLOOD UREA NITROGEN 23 mg/dL (9-20); CARBON DIOXIDE 29 mmol/L (22-30); GFR AFRICAN-AMERICAN > 60; TOTAL PROTEIN 6.9 g/dL (6.3-8.3)
[2017-02-21 08:43] LABS: ALT/SGPT 20 U/L (21-72); GLUCOSE,RANDOM 141 mg/dL (75-110); MAGNESIUM 1.6 mg/dL (1.6-2.3); PHOSPHOROUS 5.1 mg/dL (2.5-4.5)
[2017-02-21] MEDS: Enoxaparin 40 mg Syringe SC SCH (09:01)
[2017-02-21] MEDS ORDERED: Potassium Chloride 20 mEq ER Tab PO STA (09:18)
--- NOTE | 2017-02-21 09:27 | CP.PCM.PN ---
Subjective - Date & Time of Evaluation Date of Evaluation: 02/21/17 Time of Evaluation: 09:20 - Subjective Subjective: Progress Note for Dr. Colorado Pt seen and examined at bedside. Pt doing well overnight with no acute events. Pt states he is feeling well and would like to go home. Denies CP, SOB, N/V/D. Objective - Vital Signs/Intake and Output Vital Signs (last 24 hours): Temp Pulse Resp BP Pulse Ox 97.0 F L 74 20 113/75 97 02/21/17 08:32 02/21/17 08:32 02/21/17 08:32 02/21/17 08:32 02/21/17 08:32 Intake and Output: 02/21/17 02/21/17 06:59 18:59 Intake Total 240 Balance 240 - Medications Medications: Current Medications Aspirin (Aspirin Chewable) 81 mg PO DAILY [facility] Last Admin: 02/21/17 09:01 Dose: 81 mg Enoxaparin Sodium (Lovenox) 40 mg SC DAILY [facility] Last Admin: 02/21/17 09:01 Dose: 40 mg Famotidine (Pepcid) 20 mg PO BID [facility] Last Admin: 02/21/17 09:02 Dose: 20 mg Furosemide (Lasix) 40 mg IVP Q12H [facility] Last Admin: 02/21/17 05:13 Dose: 40 mg Glipizide (Glucotrol) 10 mg PO DAILY [facility] Last Admin: 02/21/17 09:02 Dose: 10 mg Insulin Human Regular (Novolin R) 0 unit SC [facility] PRN Reason: Protocol Last Admin: 02/21/17 07:18 Dose: Not Given Lisinopril (Zestril) 10 mg PO DAILY [facility] Last Admin: 02/21/17 09:01 Dose: 10 mg Metformin HCl (Glucophage) 500 mg PO BID [facility] Last Admin: 02/21/17 09:01 Dose: 500 mg Metoprolol Tartrate (Lopressor) 50 mg PO BID [facility] Last Admin: 02/21/17 09:02 Dose: 50 mg Rosuvastatin Calcium (Crestor) 20 mg PO HS [facility] Last Admin: 02/20/17 21:39 Dose: 20 mg - Labs Labs: 02/21/17 07:28 02/21/17 07:28 PT 16.9 SECONDS (9.7-12.2) H 02/19/17 13:34 INR 1.5 02/19/17 13:34 APTT 36 SECONDS (21-34) H 02/19/17 13:34 - Constitutional Appears: Well, No Acute Distress - Head Exam Head Exam: ATRAUMATIC, NORMAL INSPECTION, NORMOCEPHALIC - Respiratory Exam Respiratory Exam: Clear to Ausculation Bilateral, NORMAL BREATHING PATTERN. absent: Rales, Rhonchi - Cardiovascular Exam Cardiovascular Exam: RRR, +S1, +S2 - GI/Abdominal Exam GI & Abdominal Exam: Soft, Normal Bowel Sounds. absent: Tenderness - Extremities Exam Extremities Exam: absent: Calf Tenderness, Pedal Edema - Neurological Exam Neurological Exam: Alert, Awake, Oriented x3 - Skin Skin Exam: Intact, Normal Color, Warm Assessment and Plan (1) Acute exacerbation of congestive heart failure Assessment & Plan: Heart failure medication adjusted yesterday Continue medication at home, including increased dose of Lisinopril Follow up with Dr. Colorado as outpt Status: Acute
[2017-02-21 12:25] VITALS: O2SAT 98
[2017-02-21 15:42] VITALS: PULSE 77; TEMP 97.6
[2017-02-21 17:20] VITALS: BP 151/90
--- NOTE | 2017-02-21 17:24 | CP.PCM.DIS ---
Provider - Provider Date of Admission: 02/19/17 15:19 Attending physician: aVrsha Beth DO Primary care physician: [facility] Consults: Dr. Colorado Time Spent in preparation of Discharge (in minutes): 35 Diagnosis - Discharge Diagnosis (1) Acute exacerbation of congestive heart failure Status: Acute Priority: High Comment: Patient treated with IV lasix. Patient to resume home regimen on discharge. (2) Hyperlipidemia Status: Acute Comment: Patient to resume home medication simvastatin on discharge. (3) CAD (coronary artery disease) Status: Chronic Comment: Patient to resume home medications on discharge. (4) HTN (hypertension) Status: Chronic Comment: Patient to resume metroprolol on discharge. (5) Diabetes Status: Chronic Comment: Patient to resume metformin and glipizide on discharge. Hospital Course - Lab Results Lab Results: Most Recent Lab Values WBC 8.1 K/uL (4.8-10.8) 02/21/17 07:28 RBC 4.39 Mil/uL (4.40-5.90) L 02/21/17 07:28 Hgb 12.8 g/dL (12.0-18.0) 02/21/17 07:28 Hct 38.4 % (35.0-51.0) 02/21/17 07:28 MCV 87.5 fL (80.0-94.0) 02/21/17 07:28 MCH 29.2 pg (27.0-31.0) 02/21/17 07:28 MCHC 33.3 g/dL (33.0-37.0) 02/21/17 07:28 RDW 13.9 % (11.5-14.5) 02/21/17 07:28 Plt Count 193 K/uL (130-400) 02/21/17 07:28 MPV 9.9 fL (7.2-11.7) 02/21/17 07:28 Neut % (Auto) 65.7 % (50.0-75.0) 02/21/17 07:28 Lymph % (Auto) 23.1 % (20.0-40.0) 02/21/17 07:28 Cataño % (Auto) 8.6 % (0.0-10.0) 02/21/17 07:28 Eos % (Auto) 2.0 % (0.0-4.0) 02/21/17 07:28 Baso % (Auto) 0.6 % (0.0-2.0) 02/21/17 07:28 Neut # 5.3 K/uL (1.8-7.0) 02/21/17 07:28 Lymph # 1.9 K/uL (1.0-4.3) 02/21/17 07:28 Cataño # 0.7 K/uL (0.0-0.8) 02/21/17 07:28 Eos # 0.2 K/uL (0.0-0.7) 02/21/17 07:28 Baso # 0.0 K/uL (0.0-0.2) 02/21/17 07:28 PT 16.9 SECONDS (9.7-12.2) H 02/19/17 13:34 INR 1.5 02/19/17 13:34 APTT 36 SECONDS (21-34) H 02/19/17 13:34 Sodium 135 mmol/L (132-148) 02/21/17 07:28 Potassium 3.5 mmol/L (3.6-5.2) L 02/21/17 07:28 Chloride 96 mmol/L (98-107) L 02/21/17 07:28 Carbon Dioxide 29 mmol/L (22-30) 02/21/17 07:28 Anion Gap 13 (10-20) 02/21/17 07:28 BUN 23 mg/dL (9-20) H 02/21/17 07:28 Creatinine 0.8 MG/DL (0.8-1.5) 02/21/17 07:28 Est GFR ( Amer) > 60 02/21/17 07:28 Est GFR (Non-Af Amer) > 60 02/21/17 07:28 POC Glucose (mg/dL) 115 mg/dL (65-110) H 02/21/17 16:39 Random Glucose 141 mg/dL (75-110) H 02/21/17 07:28 Hemoglobin A1c 8.1 % (4.2-6.5) H 02/20/17 06:53 Calcium 9.0 mg/dl (8.6-10.4) 02/21/17 07:28 Phosphorus 5.1 mg/dL (2.5-4.5) H 02/21/17 07:28 Magnesium 1.6 mg/dL (1.6-2.3) 02/21/17 07:28 Total Bilirubin 1.2 mg/dL (0.2-1.3) 02/21/17 07:28 AST 19 U/L (17-59) 02/21/17 07:28 ALT 20 U/L (21-72) L D 02/21/17 07:28 Alkaline Phosphatase 57 U/L (38-126) 02/21/17 07:28 Total Creatine Kinase 21 U/L (55-170) L 02/20/17 02:51 CK-MB (Mass) 0.55 ng/mL (0.0-3.38) 02/20/17 02:51 Troponin I < 0.0120 ng/mL (0.00-0.120) 02/19/17 13:34 Troponin I, Quant < 0.0120 ng/mL (0.00-0.120) 02/20/17 02:51 NT-Pro-B Natriuret Pep 6840 pg/mL (0-900) H 02/19/17 13:34 Total Protein 6.9 g/dL (6.3-8.3) 02/21/17 07:28 Albumin 3.6 g/dL (3.5-5.0) 02/21/17 07:28 Globulin 3.2 gm/dL (2.2-3.9) 02/21/17 07:28 Albumin/Globulin Ratio 1.1 (1.0-2.1) 02/21/17 07:28 Triglycerides 73 mg/dL (0-149) D 02/20/17 06:53 Cholesterol 142 mg/dL (0-199) 02/20/17 06:53 LDL Cholesterol Direct 90 mg/dL (0-129) 02/20/17 06:53 HDL Cholesterol 35 mg/dL (30-70) 02/20/17 06:53 Free T4 1.32 ng/dL (0.78-2.19) 02/19/17 19:49 TSH 3rd Generation 2.23 mIU/L (0.46-4.68) 02/20/17 06:53 Ur L.pneumophila Ag Negative (NEGATIVE) 02/19/17 19:50 Mycoplasma pneumon IgM Negative (NEGATIVE) 02/19/17 19:49 - Hospital Course Hospital Course: On Admission: Patient is a 61 year old male with a history of CAD, CHF, CAD, IDDM, and HTN. He is here with his who is translating in the room. She brought him to the ED because of his worsening shortness of breath which started about 3 days ago. He also had some chest pain but has since resolved. He has also been coughing especially at night some clear sputum. According to the he ran out of his Lasix about 3 days ago. He also noticed his right leg seemed more swollen than his left leg. He currently denies fever, chills, changes in vision , changes in hearing, chest pain, palpitations, nausea, vomiting, diarrhea, acid reflux, anxiety, depression, joint pain or swelling. He has been sleeping in a reclined position for many months. During hospitalization Patient was treated with IV lasix during hospitalization with resolution of symptoms. Patient tested negative for mycoplasma and legionella patient's SAMANTA panel was negative Patient had lower extremity dopplers which were negative for DVT Patient was seen by Dr. Colorado who increased his lisinopril. Per Dr. Colorado, patient's ICD functioning well and patient can follow up in the clinic. On Discharge: Patient is stable for discharge home per Dr. Beth. Patient is to follow up with [facility] within one week of discharge. Patient will need to follow up with Dr. Colorado upon discharge. Patient is to resume home medications with the exception of lisinopril which has been increased to 10mg daily. Patient is being given prescriptions for simvastatin 80mg, aspirin 81mg , lasix 40mg, glipizide 10mg, metformin 500mg twice a day, lisinopril 10mg, metoprolol 50mg twice a day. Patient should return to the ED if his symptoms return or worsen. This was explained to the patient who understands and agrees. Discharge Exam - Head Exam Head Exam: ATRAUMATIC, NORMAL INSPECTION, NORMOCEPHALIC - Eye Exam Eye Exam: EOMI - ENT Exam ENT Exam: Mucous Membranes Moist - Respiratory Exam Respiratory Exam: Clear to PA & Lateral - Cardiovascular Exam Cardiovascular Exam: +S1, +S2, +S4 - GI/Abdominal Exam GI & Abdominal Exam: Normal Bowel Sounds, Soft. absent: Tenderness Additional comments: left chest defibrillator - Extremities Exam Extremities exam: normal inspection Additional comments: no lower extremity edema - Neurological Exam Neurological exam: Alert, Oriented x3 - Skin Skin Exam: Warm Discharge Plan - Discharge Medications Prescriptions: Aspirin [Aspirin Chewable] 81 mg PO DAILY 30 Days Furosemide [Lasix] 40 mg PO DAILY 30 Days GlipiZIDE [Glucotrol] 10 mg PO DAILY #30 tab Lisinopril [Zestril] 10 mg PO DAILY #30 tab metFORMIN [glucOPHAGE] 500 mg PO BID 30 Days Metoprolol Tartrate [Lopressor] 50 mg PO BID 30 Days Simvastatin 80 mg PO HS #30 tablet - Follow Up Plan Condition: FAIR Disposition: HOME/ ROUTINE Instructions: Heart Failure (DC), Coronary Artery Disease (DC), Diabetes Mellitus Type 2 in Adults (DC), Meal Planning with the Plate Method (DC), Hyperlipidemia (DC) Additional Instructions: Patient is stable for discharge home per Dr. Beth. Patient is to follow up with [facility] within one week of discharge. Patient will need to follow up with Dr. Colorado upon discharge. Patient is to resume home medications with the exception of lisinopril which has been increased to 10mg daily. Patient is being given prescriptions for simvastatin 80mg, aspirin 81mg , lasix 40mg, glipizide 10mg, metformin 500mg twice a day, lisinopril 10mg, metoprolol 50mg twice a day. Patient should return to the ED if his symptoms return or worsen. This was explained to the patient who understands and agrees. Referrals: [facility] [Outside] Dewayne Colorado MD [Staff Provider] - Clinical Quality Measures - CQM - Heart Failure Ejection Fraction: Less Than 40 % Left Ventricular Function to be assessed after discharge: No ELIZABETH Inhibitor Prescribed: Yes Beta-Desire Prescribed: None Contraindication/Reason for not providing: patient on metoprolol tartrate 50mg BID Angiotensin II Receptor Desire Prescribed: No Contraindication/Reason for not providing: patient on ELIZABETH AnticoagulationTherapy for Atrial Fibrillation/Atrialflutter: No Contraindication/Reason for not providing: not indicated- pt does not have afib / aflutter Aldosterone Antagonist Prescribed: No Contraindication/Reason for not providing: not indicated Hydralazine Nitrate Prescribed: No Contraindication/Reason for not providing: not indicated Implantable Cardioverter Defibrillator Therapy: Yes Cardiac Resynchronization Therapy Prescribed: No Contraindication/Reason for not providing: not indicated Will be discharged to: Home Follow Up Date (must be within 7 days from discharge): 02/28/17 Follow Up Time: 09:00
== END 2017-02-21 18:45 | disposition home or self-care (01) ==
LOC: C.ER 12:37 → C.9E 15:19 → C.5T 16:53
PROVIDERS: ADMIT Hospitalist; ATTEND Hospitalist
DX: I11.0 Hypertensive heart disease with heart failure (principal); I50.9 Heart failure, unspecified; E78.5 Hyperlipidemia, unspecified; E11.9 Type 2 diabetes mellitus without complications; Z79.4 Long term (current) use of insulin
CPT/HCPCS: 36415; 71010; 80053; 80061; 82948; 83036; 83735; 83880; 84100; 84439; 84443; 84484; 85025; 85610; 85730; 86738; 87449; 87899; 93970; 96374; 99285; G0378; J1650; J1940

== ENCOUNTER 2017-03-09 12:57 | Inpatient (IN) | payer OTHER ==
[2017-03-09 12:57] VITALS: BMI 18.7
[2017-03-09 13:52] LABS: CHLORIDE 97 mmol/L (98-107); POTASSIUM 4.1 mmol/L (3.6-5.2); SODIUM 136 mmol/L (132-148)
[2017-03-09 13:53] LABS: BASO # 0.1 K/uL (0.0-0.2); BASO % 0.6 % (0.0-2.0); EOS # 0.1 K/uL (0.0-0.7); EOS % 0.6 % (0.0-4.0); HEMATOCRIT 43.3 % (35.0-51.0); LYMPH # 2.1 K/uL (1.0-4.3); LYMPH % 22.4 % (20.0-40.0); MEAN CELL VOLUME 89.3 fL (80.0-94.0); MEAN CORPUSCULAR HEMOGLOBIN 29.2 pg (27.0-31.0); MEAN CORPUSCULAR HGB CONC 32.7 g/dL (33.0-37.0); MEAN PLATELET VOLUME 10.4 fL (7.2-11.7); MONO # 0.9 K/uL (0.0-0.8); MONO % 9.8 % (0.0-10.0); RED CELL DISTRIBUTION WIDTH 14.9 % (11.5-14.5); WHITE BLOOD COUNT 9.4 K/uL (4.8-10.8)
[2017-03-09 13:54] LABS: GFR AFRICAN-AMERICAN > 60
[2017-03-09 13:55] LABS: ALKALINE PHOSPHATASE 99 U/L (38-126); ALT/SGPT 32 U/L (21-72); AST/SGOT 42 U/L (17-59); BILIRUBIN,TOTAL 1.4 mg/dL (0.2-1.3); BLOOD UREA NITROGEN 24 mg/dL (9-20); CARBON DIOXIDE 25 mmol/L (22-30); GLUCOSE,RANDOM 215 mg/dL (75-110); TOTAL PROTEIN 7.6 g/dL (6.3-8.3)
--- NOTE | 2017-03-09 14:22 | C.PDOC ---
History Of Present Illness Patient is a 61 year old male who presents to the ER with a complaint of worsening SOB for the past 2 weeks. Patient was admitted 02/19-02/21 for COPD exacerbation; patient had his defibrillator evaluated by Dr. Colorado. Patient states he has good compliance with his Lasix and eating a lot of fruits. Patient is known to have a 20% ejection fracture. Denies chest pain, nausea or vomiting. Time Seen by Provider: 03/09/17 13:16 Chief Complaint (Nursing): Shortness Of Breath History Per: Patient History/Exam Limitations: no limitations Onset/Duration Of Symptoms: Days (14) Current Symptoms Are (Timing): Still Present Initiating Event: Other (Not known) Current Respiratory Medications: See Home Med List Associated Symptoms: denies: Chest Pain, Other (Nausea, Vomiting) Recent travel outside of the [place]: No Past Medical History Reviewed: Historical Data, Nursing Documentation, Vital Signs Vital Signs: Last Vital Signs Temp 97.7 F 03/09/17 16:24 Pulse 76 03/09/17 16:24 Resp 20 03/09/17 16:24 BP 120/80 03/09/17 16:24 Pulse Ox 100 03/09/17 16:24 - Medical History PMH: CAD, CHF, Diabetes, HTN Surgical History: Pacemaker - [facility] Procedures ASSISTANCE WITH RESPIRATORY VENTILATION, <24 HRS, CPAP (12/11/16) FLUOROSCOPY OF LEFT HEART USING LOW OSMOLAR CONTRAST (12/11/16) FLUOROSCOPY OF MULT COR ART USING L OSM CONTRAST (12/11/16) MEASURE OF CARDIAC SAMPL & PRESSURE, L HEART, PERC APPROACH (12/11/16) Family History: States: Unknown Family Hx - Social History Hx Tobacco Use: No Hx Alcohol Use: No Hx Substance Use: No - Immunization History Hx Tetanus Toxoid Vaccination: No Hx Influenza Vaccination: No Hx Pneumococcal Vaccination: No Review Of Systems Cardiovascular: Negative for: Chest Pain Respiratory: Positive for: Shortness of Breath Gastrointestinal: Negative for: Nausea, Vomiting Physical Exam - Physical Exam Appears: Non-toxic, No Acute Distress Skin: Normal Color, Warm, Dry Head: Atraumatic, Normacephalic Oral Mucosa: Moist Chest: No Tenderness, Other (Pacemaker to upper left chest) Cardiovascular: Rhythm Regular, Murmur (S1 S2 S3) Respiratory: Rales (Bilateral), No Rhonchi, No Wheezing Extremity: Normal ROM, Pedal Edema (Mild) Neurological/Psych: Oriented x3, Normal Speech, Normal Cognition ED Course And Treatment - Laboratory Results Result Diagrams: 03/09/17 13:35 03/09/17 13:35 Lab Interpretation: Abnormal (trop neg, bnp 8640 H) ECG: Interpreted By Me ECG Rhythm: A Paced (77) ECG Interpretation: No Changes From Prior, Abnormal O2 Sat by Pulse Oximetry: 100 - Radiology CXR: Interpreted by Me CXR Interpretation: Yes: Heart Size (+ megaly), Other (+ mild/mod CHF) Progress Note: known card echo 11/30 EJF 20%. EKG, blood work and CXR ordered. Lasix administered. Reevaluation Time: 14:20 Reassessment Condition: Improved - Physician Consult Information Outcome Of Conversation: 1330, 1420: d/w Hospitalist- Dr. Beth- larissa to Tele Obs. Medical Decision Making Medical Decision Making: Stage III NYHA CHF, can barely walk accross the room poor EJF 20%, optimize meds and fluid status Disposition Doctor Will See Patient In The: Hospital Counseled Patient/Family Regarding: Studies Performed, Diagnosis - Disposition Disposition: HOSPITALIZED Disposition Time: 14:22 Condition: FAIR - Clinical Impression Clinical Impression: Acute exacerbation of congestive heart failure - Scribe Statement The provider has reviewed the documentation as recorded by the Scribsatinder Cruz All medical record entries made by the Scribe were at my direction and personally dictated by me. I have reviewed the chart and agree that the record accurately reflects my personal performance of the history, physical exam, medical decision making, and the department course for this patient. I have also personally directed, reviewed, and agree with the discharge instructions and disposition.
[2017-03-09 14:59] LABS: RBC URINE 1 /hpf (0-3); URINE BILIRUBIN NEGATIVE (NEGATIVE); URINE BLOOD NEGATIVE (NEGATIVE); URINE COLOR Straw (YELLOW); URINE GLUCOSE (UA) NORMAL (Normal); URINE HYALINE CAST 0-2 /lpf (0-2); URINE KETONE NEGATIVE (NEGATIVE); URINE LEUKOCYTE ESTERASE NEG Leu/uL (Negative); URINE PROTEIN NEGATIVE (NEGATIVE); URINE UROBILINOGEN NORMAL mg/dL (0.2-1.0); WBC URINE 1 /hpf (0-5)
--- NOTE | 2017-03-09 17:03 | RAD ---
PROCEDURE: CHEST RADIOGRAPH, 1 VIEW HISTORY: SOB COMPARISON: 02/19/2017 FINDINGS: LUNGS: Patchy opacity at both lung bases. Grossly unchanged compared to prior examination. PLEURA: Small bilateral pleural effusion. No pneumothorax. CARDIOVASCULAR: AICD. Normal heart size. No significant congestive change. OSSEOUS STRUCTURES: No significant abnormalities. VISUALIZED UPPER ABDOMEN: Normal. OTHER FINDINGS: None. IMPRESSION: Stable bibasilar opacities and small bilateral pleural effusions.
[2017-03-09] MEDS: Enoxaparin 40 mg Syringe SC SCH (20:03)
[2017-03-09] MEDS: (Novolin R) Insulin Human Regular 100 units/ml vial SC SCH (21:38)
--- NOTE | 2017-03-09 22:28 | CP.PCM.HP ---
<Evonne Loyola - Last Filed: 03/09/17 22:15> History of Present Illness - History of Present Illness History of Present Illness: CC: "shortness of breath" HPI: 61 year old male with past medical history of CHF, hyperlipidemia, coronary artery disease, hypternsion, diabetes mellitus, presents to the ED with shortness of breath for 1 week. The patient is accompanied by his and daughter who contribute to the history. He reports his shortness of breath is getting worse, and is worse with activity and laying down. He reports nothing makes his symptoms better. The patient was recently discharged from [facility] on 02/21/17 for shortness of breath, cough, and chest pain. His reports that even during discharge from the hospital, her still felt short of breath. As per the , since discharge, his symptoms have progressed. Currently, the patient feel weak, leg swelling, palpitations with active or without oxygen. He denies chest pain, abdominal pain, fevers, chills, headache, dizziness, nausea and vomiting. PMD: [facility] PMHx: CHF, hyperlipidemia, coronary artery disease, hypternsion, diabetes mellitus PSx: Pacemaker 11/2016 FamHx: DM, HTN, Father-stroke SocHx: former smoker, denies alcohol, and drug use; lives with in house Allergies: NKDA Medication: ASA 81mg daily, Lasix 40mg daily, glipizide 10mg daily, metformin 500mg BID; simvastatin 80mg daily, lisinopril 5mg daily, metoprolol 50mg daily Present on Admission - Present on Admission Any Indicators Present on Admission: No Review of Systems - Constitutional Constitutional: Fatigue, Weakness. absent: Chills, Fever, Headache - EENT Eyes: Blurred Vision. absent: Change in Vision, Other Visual Disturbances Ears: absent: Dizziness Nose/Mouth/Throat: absent: Sore Throat - Cardiovascular Cardiovascular: Dyspnea, Dyspnea on Exertion, Edema, Leg Edema. absent: Chest Pain - Respiratory Respiratory: Dyspnea, Dyspnea on Exertion. absent: Cough - Gastrointestinal Gastrointestinal: absent: Abdominal Pain, Diarrhea, Nausea, Vomiting - Genitourinary Genitourinary: absent: Dysuria, Urinary Frequency - Musculoskeletal Musculoskeletal: absent: Numbness, Tingling - Integumentary Integumentary: absent: Bleeding Lesions, Unusual Bruising - Neurological Neurological: Weakness. absent: Dizziness, Numbness, Headaches - Endocrine Endocrine: Fatigue, Palpitations - Hematologic/Lymphatic Hematologic: absent: Easy Bleeding, Easy Bruising Past Patient History - Infectious Disease Hx of Infectious Diseases: None - Past Medical History & Family History Past Medical History?: Yes - Past Social History Smoking Status: Former Smoker - CARDIAC Hx Congestive Heart Failure: Yes Hx Hypertension: Yes Hx Pacemaker: Yes - PULMONARY Hx Respiratory Disorders: No - NEUROLOGICAL Hx Neurological Disorder: No - HEENT Hx HEENT Problems: Yes Other/Comment: glasses for reading - RENAL Hx Chronic Kidney Disease: No - ENDOCRINE/METABOLIC Hx Endocrine Disorders: Yes Hx Diabetes Mellitus Type 2: Yes - HEMATOLOGICAL/ONCOLOGICAL Hx Blood Disorders: No - INTEGUMENTARY Hx Dermatological Problems: No - MUSCULOSKELETAL/RHEUMATOLOGICAL Hx Falls: No - GASTROINTESTINAL Hx Gastrointestinal Disorders: No - GENITOURINARY/GYNECOLOGICAL Hx Genitourinary Disorders: No - PSYCHIATRIC Hx Substance Use: No - SURGICAL HISTORY Hx Surgeries: No Other/Comment: PACEMAKER insertion 12/11/2016 - ANESTHESIA Hx Anesthesia: Yes Hx Anesthesia Reactions: No Meds Allergies/Adverse Reactions: Allergies Allergy/AdvReac Type Severity Reaction Status Date / Time No Known Allergies Allergy Verified 03/09/17 13:05 Physical Exam - Constitutional Appears: No Acute Distress - Head Exam Head Exam: NORMAL INSPECTION, NORMOCEPHALIC - Eye Exam Eye Exam: EOMI, Normal appearance - ENT Exam ENT Exam: Mucous Membranes Moist - Neck Exam Neck exam: Positive for: Normal Inspection - Respiratory Exam Respiratory Exam: Rales, NORMAL BREATHING PATTERN. absent: Decreased Breath Sounds - Cardiovascular Exam Cardiovascular Exam: REGULAR RHYTHM, +S1, +S2 - GI/Abdominal Exam GI & Abdominal Exam: Normal Bowel Sounds, Soft. absent: Tenderness - Extremities Exam Extremities exam: Positive for: pedal edema. Negative for: calf tenderness, tenderness - Neurological Exam Neurological exam: Alert, Oriented x3 - Psychiatric Exam Psychiatric exam: Normal Affect, Normal Mood - Skin Skin Exam: Dry, Intact, Normal Color, Warm Results - Vital Signs Recent Vital Signs: Last Vital Signs Temp 98 F 03/09/17 21:38 Pulse 71 03/09/17 21:38 Resp 20 03/09/17 21:38 BP 119/79 03/09/17 21:38 Pulse Ox 100 03/09/17 21:38 - Labs Result Diagrams: 03/09/17 13:35 03/09/17 13:35 Labs: Laboratory Results - last 24 hr 03/09/17 03/09/17 03/09/17 14:38 17:15 20:11 POC Glucose (mg/dL) 142 H Total Creatine Kinase 27 L CK-MB (Mass) 0.43 Troponin I, Quant < 0.0120 Urine Color Straw Urine Clarity Clear Urine pH 7.0 Ur Specific [place] 1.005 Urine Protein Negative Urine Glucose (UA) Normal Urine Ketones Negative Urine Blood Negative Urine Nitrate Negative Urine Bilirubin Negative Urine Urobilinogen Normal Ur Leukocyte Esterase Neg Urine WBC (Auto) 1 Urine RBC (Auto) 1 Hyaline Casts 0-2 03/09/17 21:26 POC Glucose (mg/dL) 120 H Total Creatine Kinase CK-MB (Mass) Troponin I, Quant Urine Color Urine Clarity Urine pH Ur Specific [place] Urine Protein Urine Glucose (UA) Urine Ketones Urine Blood Urine Nitrate Urine Bilirubin Urine Urobilinogen Ur Leukocyte Esterase Urine WBC (Auto) Urine RBC (Auto) Hyaline Casts Assessment & Plan (1) Shortness of breath Assessment and Plan: O2 nasal canula CXR Former smoker SAMANTA & EKG Q6hrs Status: Acute (2) Acute exacerbation of congestive heart failure Assessment and Plan: EKG- no changes from previous EKG Troponin x1 negative Echo (11/2016): EJ 20% Chest xray- cardiomegaly, + mild to moderate CHF Lasix 20mg IV Q12 (Home medication Lasix 40mg PO daily) Cardiology consult- Dr [place] Daily weights Input & outputs Continue home medication: ASA 81mg daily, simvastatin 80mg daily, lisinopril 5mg daily, metoprolol 50mg daily Restrict fluids Pacemaker (11/2016) Status: Acute Priority: High (3) Hyperlipidemia Assessment and Plan: simvastatin 80mg (home medication) Status: Acute (4) Diabetes Assessment and Plan: f/u HgbA1c Accuchecks QACHS HOme meds: glipizide 10mg daily, metformin 500mg BID ISS (low) Status: Chronic (5) HTN (hypertension) Assessment and Plan: Metoprolol 50mg daily Lisinopril 5mg daily Monitor Status: Chronic (6) Prophylactic measure Assessment and Plan: SCDs Pepcid 20mg PO BID Heart Healthy Diet, 2Na ASA 81mg PO daily PT/OT Activity ordered as tolerated Lovenox 40subQ once daily Status: Acute <Varsha Beth V - Last Filed: 03/09/17 23:11> Results - Vital Signs Recent Vital Signs: Last Vital Signs Temp 98 F 03/09/17 21:38 Pulse 71 03/09/17 21:38 Resp 20 03/09/17 21:38 BP 119/79 03/09/17 22:33 Pulse Ox 100 03/09/17 21:38 - Labs Result Diagrams: 03/09/17 13:35 03/09/17 13:35 Labs: Laboratory Results - last 24 hr 03/09/17 03/09/17 03/09/17 14:38 17:15 20:11 POC Glucose (mg/dL) 142 H Total Creatine Kinase 27 L CK-MB (Mass) 0.43 Troponin I, Quant < 0.0120 Urine Color Straw Urine Clarity Clear Urine pH 7.0 Ur Specific [place] 1.005 Urine Protein Negative Urine Glucose (UA) Normal Urine Ketones Negative Urine Blood Negative Urine Nitrate Negative Urine Bilirubin Negative Urine Urobilinogen Normal Ur Leukocyte Esterase Neg Urine WBC (Auto) 1 Urine RBC (Auto) 1 Hyaline Casts 0-2 03/09/17 21:26 POC Glucose (mg/dL) 120 H Total Creatine Kinase CK-MB (Mass) Troponin I, Quant Urine Color Urine Clarity Urine pH Ur Specific [place] Urine Protein Urine Glucose (UA) Urine Ketones Urine Blood Urine Nitrate Urine Bilirubin Urine Urobilinogen Ur Leukocyte Esterase Urine WBC (Auto) Urine RBC (Auto) Hyaline Casts Attending/Attestation - Attestation I have personally seen and examined this patient.: Yes I have fully participated in the care of the patient.: Yes I have reviewed all pertinent clinical information: Yes Notes (Text): Patient seen, examined and case discussed with day-time commercial internship. Patient seen in [facility] Bed 15 in the Emergency Room this afternoon. Patient reporting shortness of breathe which prompts him gasping for air in the morning, and unable to tolerate minimal exertion; only able to walk few steps. Patient reports he is compliant on medications and compliant on dietary changes. Patient reports his pacemaker did not fire and it was recently checked last admission. patient is a former smoker, and does not require home oxygen. patient does not travel and not exposed to sick contacts. Patient has gained 3 lbs since last admission Discussed admitting orders with day-time resident. Cardiology consulted and contacted, will see the patient tomorrow. Patient started on IV diuretic, aspirin, beta liza, libra-inhibitor, and stain. Assessment/Plan (1) Acute on Chronic Systolic Heart failure Exacerbation Assessment & Plan: * Cardiology (Dr. [place]) on board-->help appreciated * Echocardiogram (12/10/16): left ventricle systolic function is severely impaired, ejection fraction is 20-25%, mild aortic regurgitation, mitral regurgitation is mild, mild tricupsid regurgitation, mild pulmonic valvular regurgitation. large left pleural effusion * Cardiac catherization (12/11/16): severe triple vessel disease, small vessel disease, severe cardiomyopathy EF; 10-15% * Aspirin 81mg PO daily * Lisinopril 10mg PO daily * Lopressor 50mg PO bid * Crestor 20mg POqHS * biventricular ICD/pacer 12/12/16-->per cardiology, ICD is functioning well * Monitor daily weights * Monitor In and out Status: Acute (2) Coronary Artery Disease Assessment and Plan: * Cardiac catherization (12/11/16): severe triple vessel disease, small vessel disease, severe cardiomyopathy EF; 10-15% * Cardiology (Dr. [place]) on board-->help appreciated * Aspirin 81mg PO daily * increased to Lisinopril 10mg PO daily by cardiology * Lopressor 50mg PO bid * Crestor 20mg POqHS * Lasix 20mg IV Q12 Status: Chronic (3) Diabetes Assessment and Plan: * Uncontrolled * Hgba1c: 8.1 (improved compared to last admission)-->f/u a1c * c/w Metformin 500mg PO bid, Glipizide 10mg PO daily * Accuchecks QAC and HS * Insulin sliding scale subq Status: Chronic (4) HTN (hypertension) Assessment and Plan: * c/w Lopressor 50mg PO bid * c/w Lisinopril 10mg PO daily Status: Chronic (5) Hyperlipidemia Assessment and Plan: * Crestor 20mg PO qHS * check lipid panel in AM Status: Chronic (6) Prophylactic measure Assessment and Plan: * Lovenox 40mg subq daily * Pepcid 20mg PO bid * PT/OT eval * Daily weights * intake and output
--- NOTE | 2017-03-10 06:53 | CP.PCM.CON ---
Past Patient History - Infectious Disease Hx of Infectious Diseases: None - Past Medical History & Family History Past Medical History?: Yes - Past Social History Smoking Status: Former Smoker - CARDIAC Hx Congestive Heart Failure: Yes Hx Hypertension: Yes Hx Pacemaker: Yes - PULMONARY Hx Respiratory Disorders: No - NEUROLOGICAL Hx Neurological Disorder: No - HEENT Hx HEENT Problems: Yes Other/Comment: glasses for reading - RENAL Hx Chronic Kidney Disease: No - ENDOCRINE/METABOLIC Hx Endocrine Disorders: Yes Hx Diabetes Mellitus Type 2: Yes - HEMATOLOGICAL/ONCOLOGICAL Hx Blood Disorders: No - INTEGUMENTARY Hx Dermatological Problems: No - MUSCULOSKELETAL/RHEUMATOLOGICAL Hx Falls: No - GASTROINTESTINAL Hx Gastrointestinal Disorders: No - GENITOURINARY/GYNECOLOGICAL Hx Genitourinary Disorders: No - PSYCHIATRIC Hx Substance Use: No - SURGICAL HISTORY Hx Surgeries: No Other/Comment: PACEMAKER insertion 12/11/2016 - ANESTHESIA Hx Anesthesia: Yes Hx Anesthesia Reactions: No Meds Allergies/Adverse Reactions: Allergies Allergy/AdvReac Type Severity Reaction Status Date / Time No Known Allergies Allergy Verified 03/09/17 13:05 - Medications Medications: Current Medications Aspirin (Aspirin Chewable) 81 mg PO DAILY [facility] Enoxaparin Sodium (Lovenox) 40 mg SC DAILY [facility] Last Admin: 03/09/17 20:03 Dose: 40 mg Famotidine (Pepcid) 20 mg PO BID [facility] Last Admin: 03/09/17 20:02 Dose: 20 mg Furosemide (Lasix) 20 mg IVP Q12 [facility] Last Admin: 03/09/17 22:33 Dose: 20 mg Glipizide (Glucotrol) 10 mg PO DAILY [facility] Insulin Human Regular (Novolin R) 0 unit SC [facility] PRN Reason: Protocol Last Admin: 03/09/17 21:38 Dose: Not Given Lisinopril (Zestril) 10 mg PO DAILY [facility] Metformin HCl (Glucophage) 500 mg PO BID [facility] Last Admin: 03/09/17 20:03 Dose: 500 mg Metoprolol Tartrate (Lopressor) 50 mg PO Q12 [facility] Pneumococcal Polyvalent Vaccine (Pneumovax 23 Vaccine) 0.5 ml IM .ONCE ONE Stop: 03/12/17 10:01 Rosuvastatin Calcium (Crestor) 20 mg PO [facility] Last Admin: 03/09/17 22:33 Dose: 20 mg Results - Vital Signs Recent Vital Signs: Last Vital Signs Temp 97.7 F 03/10/17 04:23 Pulse 69 03/10/17 04:23 Resp 20 03/10/17 04:23 BP 112/77 03/10/17 04:23 Pulse Ox 100 03/10/17 04:23 - Labs Result Diagrams: 03/09/17 13:35 03/09/17 13:35 Labs: Laboratory Results - last 24 hr 03/09/17 03/09/17 03/09/17 14:38 17:15 20:11 POC Glucose (mg/dL) 142 H Total Creatine Kinase 27 L CK-MB (Mass) 0.43 Troponin I, Quant < 0.0120 Urine Color Straw Urine Clarity Clear Urine pH 7.0 Ur Specific [place] 1.005 Urine Protein Negative Urine Glucose (UA) Normal Urine Ketones Negative Urine Blood Negative Urine Nitrate Negative Urine Bilirubin Negative Urine Urobilinogen Normal Ur Leukocyte Esterase Neg Urine WBC (Auto) 1 Urine RBC (Auto) 1 Hyaline Casts 0-2 03/09/17 03/10/17 03/10/17 21:26 01:50 06:28 POC Glucose (mg/dL) 120 H 85 Total Creatine Kinase 26 L CK-MB (Mass) 0.54 Troponin I, Quant < 0.0120 Urine Color Urine Clarity Urine pH Ur Specific [place] Urine Protein Urine Glucose (UA) Urine Ketones Urine Blood Urine Nitrate Urine Bilirubin Urine Urobilinogen Ur Leukocyte Esterase Urine WBC (Auto) Urine RBC (Auto) Hyaline Casts
[2017-03-10 07:41] LABS: BASO % 0.5 % (0.0-2.0); EOS # 0.1 K/uL (0.0-0.7); EOS % 0.9 % (0.0-4.0); HEMATOCRIT 38.4 % (35.0-51.0); LYMPH # 2.3 K/uL (1.0-4.3); LYMPH % 27.5 % (20.0-40.0); MEAN CELL VOLUME 88.5 fL (80.0-94.0); MEAN CORPUSCULAR HEMOGLOBIN 29.1 pg (27.0-31.0); MEAN CORPUSCULAR HGB CONC 32.9 g/dL (33.0-37.0); MONO # 0.8 K/uL (0.0-0.8); MONO % 9.3 % (0.0-10.0); NRBC % 0.1 % (0.0-2.0); RED CELL DISTRIBUTION WIDTH 14.6 % (11.5-14.5); WHITE BLOOD COUNT 8.5 K/uL (4.8-10.8)
[2017-03-10 07:48] LABS: CHLORIDE 103 mmol/L (98-107); POTASSIUM 3.7 mmol/L (3.6-5.2); SODIUM 139 mmol/L (132-148)
[2017-03-10 07:49] LABS: BILIRUBIN,TOTAL 1.1 mg/dL (0.2-1.3); CARBON DIOXIDE 25 mmol/L (22-30); GFR AFRICAN-AMERICAN > 60
[2017-03-10 07:50] LABS: ALKALINE PHOSPHATASE 85 U/L (38-126); ALT/SGPT 25 U/L (21-72); AST/SGOT 24 U/L (17-59); BLOOD UREA NITROGEN 28 mg/dL (9-20); CALCIUM 9.2 mg/dl (8.6-10.4); GLUCOSE,RANDOM 84 mg/dL (75-110); MAGNESIUM 1.7 mg/dL (1.6-2.3); PHOSPHOROUS 4.3 mg/dL (2.5-4.5); TOTAL PROTEIN 6.9 g/dL (6.3-8.3)
[2017-03-10] MEDS: (Novolin R) Insulin Human Regular 100 units/ml vial SC SCH ×4 (08:30→22:44)
[2017-03-10] MEDS: Enoxaparin 40 mg Syringe SC SCH (10:08)
--- NOTE | 2017-03-10 15:09 | CP.PCM.PN ---
Subjective - Date & Time of Evaluation Date of Evaluation: 03/10/17 Time of Evaluation: 15:09 - Subjective Subjective: Medicine Progress Notes- Dr. Beth Service Patient was seen and examined at bedside in no acute distress. He reports feeling better and less short of breath. He feels short of breath and palpitations when laying down. Patient reports having shortness of breath during activity, but it has improved since yesterday. Patient reports having a bowel movement yesterday. Denies chest pain, palpitations, abdominal pain, nausea, vomiting, and dizziness. Objective - Vital Signs/Intake and Output Vital Signs (last 24 hours): Temp Pulse Resp BP Pulse Ox 97.8 F 80 20 130/83 97 03/10/17 09:47 03/10/17 12:05 03/10/17 09:47 03/10/17 10:09 03/10/17 12:05 Intake and Output: 03/10/17 03/10/17 06:59 18:59 Intake Total 370 Output Total 175 Balance 195 - Medications Medications: Current Medications Aspirin (Aspirin Chewable) 81 mg PO DAILY [facility] Last Admin: 03/10/17 10:12 Dose: 81 mg Famotidine (Pepcid) 20 mg PO BID [facility] Last Admin: 03/10/17 10:12 Dose: 20 mg Furosemide (Lasix) 20 mg IVP Q12 [facility] Last Admin: 03/10/17 10:09 Dose: 20 mg Glipizide (Glucotrol) 10 mg PO DAILY [facility] Last Admin: 03/10/17 10:12 Dose: 10 mg Insulin Human Regular (Novolin R) 0 unit SC [facility] PRN Reason: Protocol Last Admin: 03/10/17 13:32 Dose: 2 unit Lisinopril (Zestril) 10 mg PO DAILY [facility] Last Admin: 03/10/17 10:11 Dose: 10 mg Metformin HCl (Glucophage) 500 mg PO BID [facility] Last Admin: 03/10/17 10:12 Dose: 500 mg Metoprolol Tartrate (Lopressor) 50 mg PO Q12 [facility] Last Admin: 03/10/17 10:12 Dose: 50 mg Pneumococcal Polyvalent Vaccine (Pneumovax 23 Vaccine) 0.5 ml IM .ONCE ONE Stop: 03/12/17 10:01 Rosuvastatin Calcium (Crestor) 20 mg PO HS [facility] Last Admin: 03/09/17 22:33 Dose: 20 mg - Labs Labs: 03/10/17 07:27 03/10/17 07:27 - Constitutional Appears: No Acute Distress - Head Exam Head Exam: NORMAL INSPECTION, NORMOCEPHALIC - Eye Exam Eye Exam: EOMI, Normal appearance - ENT Exam ENT Exam: Mucous Membranes Moist - Neck Exam Neck Exam: Full ROM, Normal Inspection - Respiratory Exam Respiratory Exam: Rales, NORMAL BREATHING PATTERN - Cardiovascular Exam Cardiovascular Exam: REGULAR RHYTHM, +S1, +S2 - GI/Abdominal Exam GI & Abdominal Exam: Normal Bowel Sounds. absent: Tenderness - Extremities Exam Extremities Exam: Pedal Edema. absent: Calf Tenderness, Tenderness - Neurological Exam Neurological Exam: Alert, Awake, Oriented x3 - Psychiatric Exam Psychiatric exam: Normal Affect - Skin Skin Exam: Dry, Intact, Normal Color, Warm Assessment and Plan (1) Shortness of breath Assessment & Plan: O2 nasal canula CXR Former smoker SAMANTA & EKG Q6hrs-- SAMANTA x2 negative Status: Acute (2) Acute exacerbation of congestive heart failure Assessment & Plan: EKG- no changes from previous EKG Troponin x2 negative Echo (11/2016): EJ 20% Chest xray- cardiomegaly, + mild to moderate CHF Lasix 20mg IV Q12 (Home medication Lasix 40mg PO daily) Cardiology consult- Dr [place] Daily weights Input & outputs Continue home medication: ASA 81mg daily, simvastatin 80mg daily, lisinopril 5mg daily, metoprolol 50mg daily Restrict fluids Pacemaker (11/2016)- HOLD Lovenox (03/10/17) for pacemaker adjustment on Saturday Status: Acute (3) Hyperlipidemia Assessment & Plan: simvastatin 80mg (home medication) Status: Acute (4) Diabetes Assessment & Plan: f/u HgbA1c Accuchecks QACHS HOme meds: glipizide 10mg daily, metformin 500mg BID ISS (low) Status: Chronic (5) HTN (hypertension) Assessment & Plan: Metoprolol 50mg daily Lisinopril 5mg daily Monitor Status: Chronic (6) Prophylactic measure Assessment & Plan: SCDs Pepcid 20mg PO BID Heart Healthy Diet, 2Na ASA 81mg PO daily PT/OT Activity ordered as tolerated Lovenox 40subQ once daily- HOLD; scheduled for pacemaker adjustment on Saturday Status: Acute
[2017-03-11] MEDS ORDERED: Dextrose 5%/0.45% NS 1,000 ML IV SCH (00:05)
[2017-03-11] MEDS: (Novolin R) Insulin Human Regular 100 units/ml vial SC SCH ×2 (08:00→18:25)
[2017-03-11 08:32] LABS: BASO # 0.1 K/uL (0.0-0.2); BASO % 0.8 % (0.0-2.0); EOS # 0.2 K/uL (0.0-0.7); HEMATOCRIT 41.1 % (35.0-51.0); LYMPH # 1.7 K/uL (1.0-4.3); LYMPH % 22.6 % (20.0-40.0); MEAN CELL VOLUME 88.8 fL (80.0-94.0); MEAN CORPUSCULAR HEMOGLOBIN 29.7 pg (27.0-31.0); MEAN CORPUSCULAR HGB CONC 33.5 g/dL (33.0-37.0); MEAN PLATELET VOLUME 10.2 fL (7.2-11.7); MONO # 0.8 K/uL (0.0-0.8); MONO % 10.9 % (0.0-10.0); NRBC % 0.1 % (0.0-2.0); RED CELL DISTRIBUTION WIDTH 14.8 % (11.5-14.5); WHITE BLOOD COUNT 7.7 K/uL (4.8-10.8)
[2017-03-11 08:55] LABS: CHLORIDE 101 mmol/L (98-107); POTASSIUM 3.7 mmol/L (3.6-5.2); SODIUM 140 mmol/L (132-148)
[2017-03-11 08:57] LABS: AST/SGOT 28 U/L (17-59); CARBON DIOXIDE 29 mmol/L (22-30); GFR AFRICAN-AMERICAN > 60
[2017-03-11 08:58] LABS: ALKALINE PHOSPHATASE 86 U/L (38-126); ALT/SGPT 24 U/L (21-72); BLOOD UREA NITROGEN 28 mg/dL (9-20); CALCIUM 9.7 mg/dl (8.6-10.4); GLUCOSE,RANDOM 124 mg/dL (75-110); MAGNESIUM 1.7 mg/dL (1.6-2.3); TOTAL PROTEIN 7.6 g/dL (6.3-8.3)
--- NOTE | 2017-03-11 10:10 | CARD ---
APPROVED REPORT EKG Measurement Heart [id number] <Conclusion> Atrial-paced rhythm with frequent premature ventricular complexes Left axis deviation Left ventricular hypertrophy with QRS widening Possible Lateral infarct, age undetermined Abnormal ECG
--- NOTE | 2017-03-11 10:41 | CP.PCM.PN ---
Subjective - Date & Time of Evaluation Date of Evaluation: 03/11/17 Time of Evaluation: 10:32 - Subjective Subjective: Progress Note for Dr. [place] Pt seen and examined at bedside. Pt doing well overnight with no acute events. Pt with no complaints at this time. Denies CP, SOB, N/V/D. Objective - Vital Signs/Intake and Output Vital Signs (last 24 hours): Temp Pulse Resp BP Pulse Ox 97.7 F 74 20 144/97 H 98 03/11/17 07:20 03/11/17 07:20 03/11/17 07:20 03/11/17 09:51 03/11/17 07:20 Intake and Output: 03/11/17 03/11/17 06:59 18:59 Intake Total 390 Balance 390 - Medications Medications: Current Medications Aspirin (Aspirin Chewable) 81 mg PO DAILY [facility] Last Admin: 03/11/17 09:51 Dose: 81 mg Famotidine (Pepcid) 20 mg PO BID [facility] Last Admin: 03/11/17 09:51 Dose: 20 mg Furosemide (Lasix) 20 mg IVP Q12 [facility] Last Admin: 03/11/17 09:51 Dose: 20 mg Dextrose/Sodium Chloride (Dextrose 5%/0.45% Ns 1000 Ml) 1,000 mls @ 50 mls/hr IV .Q20H [facility] Last Admin: 03/11/17 00:08 Dose: 50 mls/hr Insulin Human Regular (Novolin R) 0 unit SC [facility] PRN Reason: Protocol Last Admin: 03/11/17 08:00 Dose: Not Given Lisinopril (Zestril) 10 mg PO DAILY [facility] Last Admin: 03/11/17 09:51 Dose: 10 mg Metoprolol Tartrate (Lopressor) 50 mg PO Q12 [facility] Last Admin: 03/11/17 09:51 Dose: 50 mg Pneumococcal Polyvalent Vaccine (Pneumovax 23 Vaccine) 0.5 ml IM .ONCE ONE Stop: 03/12/17 10:01 Rosuvastatin Calcium (Crestor) 20 mg PO HS [facility] Last Admin: 03/10/17 21:17 Dose: 20 mg - Labs Labs: 03/11/17 08:19 03/11/17 08:19 - Constitutional Appears: Well, No Acute Distress - Head Exam Head Exam: ATRAUMATIC, NORMAL INSPECTION - ENT Exam ENT Exam: Mucous Membranes Moist - Respiratory Exam Respiratory Exam: Clear to Ausculation Bilateral, NORMAL BREATHING PATTERN - Cardiovascular Exam Cardiovascular Exam: RRR, +S1, +S2 - GI/Abdominal Exam GI & Abdominal Exam: Soft, Normal Bowel Sounds. absent: Tenderness - Extremities Exam Extremities Exam: absent: Calf Tenderness, Pedal Edema - Neurological Exam Neurological Exam: Alert, Awake, Oriented x3 - Skin Skin Exam: Intact, Normal Color, Warm Assessment and Plan (1) ICD (implantable cardioverter-defibrillator), biventricular, in situ Assessment & Plan: Pt will be transferred to [facility] for implantation of left lateral lead of biventricular ICD Pt will be made NPO Status: Acute
--- NOTE | 2017-03-11 11:56 | CP.PCM.CON ---
History of Present Illness - History of Present Illness History of Present Illness: reason for consultation: choking at night 61 year old male with past medical history of CHF, hyperlipidemia, coronary artery disease, hypternsion, diabetes mellitus, presents to the ED with shortness of breath for 1 week. He reports his shortness of breath is getting worse, and is worse with activity and laying down. Patient also complaining of choking and snoring at night. PMHx: CHF, hyperlipidemia, coronary artery disease, hypternsion, diabetes mellitus PSx: Pacemaker 11/2016 FamHx: DM, HTN, Father-stroke SocHx: former smoker, denies alcohol, and drug use; lives with in house Allergies: NKDA Medication: ASA 81mg daily, Lasix 40mg daily, glipizide 10mg daily, metformin 500mg BID; simvastatin 80mg daily, lisinopril 5mg daily, metoprolol 50mg daily Review of Systems - Review of Systems All systems: reviewed and no additional remarkable complaints except (Shortness of breath and choking at night) Past Patient History - Infectious Disease Hx of Infectious Diseases: None - Past Medical History & Family History Past Medical History?: Yes - Past Social History Smoking Status: Former Smoker - CARDIAC Hx Congestive Heart Failure: Yes Hx Hypertension: Yes - PULMONARY Hx Respiratory Disorders: No - NEUROLOGICAL Hx Neurological Disorder: No - HEENT Hx HEENT Problems: Yes Other/Comment: glasses for reading - RENAL Hx Chronic Kidney Disease: No - ENDOCRINE/METABOLIC Hx Endocrine Disorders: Yes Hx Diabetes Mellitus Type 2: Yes - HEMATOLOGICAL/ONCOLOGICAL Hx Blood Disorders: No - INTEGUMENTARY Hx Dermatological Problems: No - MUSCULOSKELETAL/RHEUMATOLOGICAL Hx Falls: No - GASTROINTESTINAL Hx Gastrointestinal Disorders: No - GENITOURINARY/GYNECOLOGICAL Hx Genitourinary Disorders: No - PSYCHIATRIC Hx Substance Use: No - SURGICAL HISTORY Hx Surgeries: No Other/Comment: PACEMAKER insertion 12/11/2016 - ANESTHESIA Hx Anesthesia: Yes Hx Anesthesia Reactions: No Meds Allergies/Adverse Reactions: Allergies Allergy/AdvReac Type Severity Reaction Status Date / Time No Known Allergies Allergy Verified 03/09/17 13:05 - Medications Medications: Current Medications Aspirin (Aspirin Chewable) 81 mg PO DAILY [facility] Last Admin: 03/11/17 09:51 Dose: 81 mg Famotidine (Pepcid) 20 mg PO BID [facility] Last Admin: 03/11/17 09:51 Dose: 20 mg Furosemide (Lasix) 20 mg IVP Q12 [facility] Last Admin: 03/11/17 09:51 Dose: 20 mg Dextrose/Sodium Chloride (Dextrose 5%/0.45% Ns 1000 Ml) 1,000 mls @ 50 mls/hr IV .Q20H [facility] Last Admin: 03/11/17 00:08 Dose: 50 mls/hr Insulin Human Regular (Novolin R) 0 unit SC ACHS [facility] PRN Reason: Protocol Last Admin: 03/11/17 08:00 Dose: Not Given Lisinopril (Zestril) 10 mg PO DAILY [facility] Last Admin: 03/11/17 09:51 Dose: 10 mg Metoprolol Tartrate (Lopressor) 50 mg PO Q12 [facility] Last Admin: 03/11/17 09:51 Dose: 50 mg Pneumococcal Polyvalent Vaccine (Pneumovax 23 Vaccine) 0.5 ml IM .ONCE ONE Stop: 03/12/17 10:01 Rosuvastatin Calcium (Crestor) 20 mg PO HS [facility] Last Admin: 03/10/17 21:17 Dose: 20 mg Physical Exam - Constitutional Appears: No Acute Distress - Head Exam Head Exam: ATRAUMATIC, NORMOCEPHALIC - Eye Exam Eye Exam: Normal appearance - ENT Exam ENT Exam: Mucous Membranes Moist - Neck Exam Neck exam: Positive for: Normal Inspection - Respiratory Exam Respiratory Exam: Clear to Auscultation Bilateral - Cardiovascular Exam Cardiovascular Exam: REGULAR RHYTHM - GI/Abdominal Exam GI & Abdominal Exam: Normal Bowel Sounds, Soft - Extremities Exam Extremities exam: Positive for: normal inspection - Neurological Exam Neurological exam: Alert, Oriented x3 Results - Vital Signs Recent Vital Signs: Last Vital Signs Temp 97.7 F 03/11/17 07:20 Pulse 74 03/11/17 07:20 Resp 20 03/11/17 07:20 BP 144/97 H 03/11/17 09:51 Pulse Ox 98 03/11/17 07:20 - Labs Result Diagrams: 03/11/17 08:19 03/11/17 08:19 Labs: Laboratory Results - last 24 hr 03/10/17 03/10/17 03/10/17 12:19 16:57 20:53 WBC RBC Hgb Hct MCV MCH MCHC RDW Plt Count MPV Neut % (Auto) Lymph % (Auto) [place] % (Auto) Eos % (Auto) Baso % (Auto) Neut # Lymph # [place] # Eos # Baso # Sodium Potassium Chloride Carbon Dioxide Anion Gap BUN Creatinine Est GFR ( Amer) Est GFR (Non-Af Amer) POC Glucose (mg/dL) 245 H 94 195 H Random Glucose Calcium Phosphorus Magnesium Total Bilirubin AST ALT Alkaline Phosphatase Total Protein Albumin Globulin Albumin/Globulin Ratio 03/11/17 03/11/17 03/11/17 06:41 08:19 08:19 WBC 7.7 RBC 4.62 Hgb 13.7 Hct 41.1 MCV 88.8 MCH 29.7 MCHC 33.5 RDW 14.8 H Plt Count 200 MPV 10.2 Neut % (Auto) 63.7 Lymph % (Auto) 22.6 [place] % (Auto) 10.9 H Eos % (Auto) 2.0 Baso % (Auto) 0.8 Neut # 4.9 Lymph # 1.7 [place] # 0.8 Eos # 0.2 Baso # 0.1 Sodium 140 Potassium 3.7 Chloride 101 Carbon Dioxide 29 Anion Gap 14 BUN 28 H Creatinine 0.9 Est GFR ( Amer) > 60 Est GFR (Non-Af Amer) > 60 POC Glucose (mg/dL) 112 H Random Glucose 124 H Calcium 9.7 Phosphorus 4.0 Magnesium 1.7 Total Bilirubin 1.0 AST 28 ALT 24 Alkaline Phosphatase 86 Total Protein 7.6 Albumin 3.8 Globulin 3.8 Albumin/Globulin Ratio 1.0 03/11/17 10:57 WBC RBC Hgb Hct MCV MCH MCHC RDW Plt Count MPV Neut % (Auto) Lymph % (Auto) [place] % (Auto) Eos % (Auto) Baso % (Auto) Neut # Lymph # [place] # Eos # Baso # Sodium Potassium Chloride Carbon Dioxide Anion Gap BUN Creatinine Est GFR ( Amer) Est GFR (Non-Af Amer) POC Glucose (mg/dL) 149 H Random Glucose Calcium Phosphorus Magnesium Total Bilirubin AST ALT Alkaline Phosphatase Total Protein Albumin Globulin Albumin/Globulin Ratio Assessment & Plan (1) Acute exacerbation of congestive heart failure Assessment and Plan: patient ejection fraction of 15-20%, chest x-ray consistent with bilateral pleural effusio secondary to CHF optimize CHF treatment Patient will need sleep study as outpatient for choking at night Status: Acute Priority: High (2) Shortness of breath Status: Acute
--- NOTE | 2017-03-11 21:12 | CP.PCM.PN ---
Subjective - Date & Time of Evaluation Date of Evaluation: 03/11/17 Time of Evaluation: 10:00 - Subjective Subjective: Medicine Note (PGY1): Dr. Earl's service Patient was seen and examined at bedside. Patient had no acute issues overnight. Patient still continues to report dyspnea on exertion and palpitations but denies chest pain, abd pain, diarrhea, dizziness. Objective - Vital Signs/Intake and Output Vital Signs (last 24 hours): Temp Pulse Resp BP Pulse Ox 98.2 F 66 20 118/84 96 03/11/17 15:24 03/11/17 15:24 03/11/17 15:24 03/11/17 15:24 03/11/17 15:24 - Medications Medications: Current Medications Aspirin (Aspirin Chewable) 81 mg PO DAILY [facility] Last Admin: 03/11/17 09:51 Dose: 81 mg Famotidine (Pepcid) 20 mg PO BID [facility] Last Admin: 03/11/17 18:24 Dose: 20 mg Furosemide (Lasix) 40 mg IVP Q12 [facility] Insulin Human Regular (Novolin R) 0 unit SC ACHS [facility] PRN Reason: Protocol Last Admin: 03/11/17 18:25 Dose: 2 unit Lisinopril (Zestril) 10 mg PO DAILY [facility] Last Admin: 03/11/17 09:51 Dose: 10 mg Metoprolol Tartrate (Lopressor) 50 mg PO Q12 [facility] Last Admin: 03/11/17 09:51 Dose: 50 mg Pneumococcal Polyvalent Vaccine (Pneumovax 23 Vaccine) 0.5 ml IM .ONCE ONE Stop: 03/12/17 10:01 Rosuvastatin Calcium (Crestor) 20 mg PO HS [facility] Last Admin: 03/10/17 21:17 Dose: 20 mg - Labs Labs: 03/11/17 08:19 03/11/17 08:19 - Constitutional Appears: Well, No Acute Distress - Head Exam Head Exam: NORMAL INSPECTION, NORMOCEPHALIC - Eye Exam Eye Exam: EOMI, Normal appearance - ENT Exam ENT Exam: Mucous Membranes Moist, Normal Exam - Respiratory Exam Respiratory Exam: Clear to Ausculation Bilateral, NORMAL BREATHING PATTERN Additional comments: JVD Present - Cardiovascular Exam Cardiovascular Exam: REGULAR RHYTHM, +S1, +S2 - GI/Abdominal Exam GI & Abdominal Exam: Soft, Normal Bowel Sounds - Extremities Exam Extremities Exam: Normal Capillary Refill, Normal Inspection - Neurological Exam Neurological Exam: Alert, Awake, Oriented x3 - Psychiatric Exam Psychiatric exam: Normal Affect, Normal Mood - Skin Skin Exam: Dry, Normal Color, Warm Assessment and Plan - Assessment and Plan (Free Text) Assessment: Assessment and Plan (1) Shortness of breath Assessment & Plan: O2 nasal canula CXR Former smoker SAMANTA & EKG Q6hrs-- SAMANTA x2 negative Status: Acute (2) Acute exacerbation of congestive heart failure Assessment & Plan: EKG- no changes from previous EKG Troponin x2 negative Echo (11/2016): EJ 20% Chest xray- cardiomegaly, + mild to moderate CHF Lasix 20mg IV Q12 ----> adjusted to 40mg IV q12h 03/11/17 (Home medication Lasix 40mg PO daily) Cardiology consult- Dr [place] Daily weights Input & outputs Continue home medication: ASA 81mg daily, simvastatin 80mg daily, lisinopril 5mg daily, metoprolol 50mg daily Restrict fluids Defibrillator wire malfunctioning Pacemaker (11/2016)- HOLD Lovenox (03/10/17) for pacemaker adjustment on Saturday03/12/17 Status: Acute (3) Hx of CAD: * No acute chest pain * Continue home meds (4) Hyperlipidemia Assessment & Plan: simvastatin 80mg (home medication) Status: Acute (5) Diabetes Assessment & Plan: f/u HgbA1c Accuchecks QACHS HOme meds: glipizide 10mg daily, metformin 500mg BID ISS (low) Status: Chronic (6) HTN (hypertension) Assessment & Plan: Metoprolol 50mg daily Lisinopril 5mg daily Monitor Status: Chronic (7) Prophylactic measure Assessment & Plan: SCDs Pepcid 20mg PO BID Heart Healthy Diet, 2Na ASA 81mg PO daily PT/OT Activity ordered as tolerated Lovenox 40subQ once daily- HOLD; scheduled for pacemaker adjustment on Saturday Status: Acute
[2017-03-12 05:02] VITALS: O2SAT 100
--- NOTE | 2017-03-12 06:30 | CP.PCM.PN ---
Subjective - Date & Time of Evaluation Date of Evaluation: 03/12/17 Time of Evaluation: 06:15 Objective - Vital Signs/Intake and Output Vital Signs (last 24 hours): Temp Pulse Resp BP Pulse Ox 97.9 F 64 20 120/74 100 03/12/17 04:00 03/12/17 04:49 03/12/17 04:00 03/12/17 04:00 03/12/17 04:00 - Medications Medications: Current Medications Aspirin (Aspirin Chewable) 81 mg PO DAILY [facility] Last Admin: 03/11/17 09:51 Dose: 81 mg Famotidine (Pepcid) 20 mg PO BID [facility] Last Admin: 03/11/17 18:24 Dose: 20 mg Furosemide (Lasix) 40 mg IVP Q12 [facility] Last Admin: 03/11/17 23:03 Dose: 40 mg Insulin Human Regular (Novolin R) 0 unit SC ACHS [facility] PRN Reason: Protocol Last Admin: 03/11/17 18:25 Dose: 2 unit Lisinopril (Zestril) 10 mg PO DAILY [facility] Last Admin: 03/11/17 09:51 Dose: 10 mg Metoprolol Tartrate (Lopressor) 50 mg PO Q12 [facility] Last Admin: 03/11/17 23:02 Dose: 50 mg Pneumococcal Polyvalent Vaccine (Pneumovax 23 Vaccine) 0.5 ml IM .ONCE ONE Stop: 03/12/17 10:01 Rosuvastatin Calcium (Crestor) 20 mg PO HS [facility] Last Admin: 03/11/17 23:03 Dose: 20 mg - Labs Labs: 03/11/17 08:19 03/11/17 08:19
[2017-03-12 06:55] LABS: CHLORIDE 97 mmol/L (98-107); POTASSIUM 3.8 mmol/L (3.6-5.2); SODIUM 135 mmol/L (132-148)
[2017-03-12 06:57] LABS: BILIRUBIN,TOTAL 1.1 mg/dL (0.2-1.3); GFR AFRICAN-AMERICAN > 60
[2017-03-12 06:58] LABS: ALB/GLOB RATIO 1.1 (1.0-2.1); ALKALINE PHOSPHATASE 81 U/L (38-126); ALT/SGPT 23 U/L (21-72); AST/SGOT 22 U/L (17-59); BLOOD UREA NITROGEN 29 mg/dL (9-20); CALCIUM 9.2 mg/dl (8.6-10.4); CARBON DIOXIDE 29 mmol/L (22-30); GLUCOSE,RANDOM 112 mg/dL (75-110); PHOSPHOROUS 3.6 mg/dL (2.5-4.5); TOTAL PROTEIN 7.1 g/dL (6.3-8.3)
[2017-03-12 06:59] LABS: MAGNESIUM 1.7 mg/dL (1.6-2.3)
[2017-03-12 07:11] LABS: BASO # 0.1 K/uL (0.0-0.2); BASO % 0.7 % (0.0-2.0); EOS # 0.1 K/uL (0.0-0.7); EOS % 1.6 % (0.0-4.0); LYMPH # 1.9 K/uL (1.0-4.3); LYMPH % 26.3 % (20.0-40.0); MEAN CELL VOLUME 88.3 fL (80.0-94.0); MEAN CORPUSCULAR HEMOGLOBIN 29.2 pg (27.0-31.0); MEAN CORPUSCULAR HGB CONC 33.1 g/dL (33.0-37.0); MEAN PLATELET VOLUME 10.3 fL (7.2-11.7); MONO # 0.8 K/uL (0.0-0.8); MONO % 10.3 % (0.0-10.0); RED CELL DISTRIBUTION WIDTH 14.6 % (11.5-14.5); WHITE BLOOD COUNT 7.4 K/uL (4.8-10.8)
[2017-03-12] MEDS: (Novolin R) Insulin Human Regular 100 units/ml vial SC SCH ×2 (07:58→12:12)
[2017-03-12 08:29] VITALS: PULSE 76; RESP 17; TEMP 97.8
[2017-03-12 09:25] VITALS: BP 139/90
[2017-03-12] MEDS ORDERED: Pneumococcal 23-Valent Vaccine IM ONE (10:00)
--- NOTE | 2017-03-12 10:22 | CP.PCM.PN ---
Subjective - Date & Time of Evaluation Date of Evaluation: 03/12/17 Time of Evaluation: 10:16 - Subjective Subjective: Progress Note for Dr. [place] Pt seen and examined at bedside. Pt doing well overnight as per nursing. No complaints today. Pt will be transferred to [place] today for ICD lead placement. Denies CP, SOB, N/V/D. Objective - Vital Signs/Intake and Output Vital Signs (last 24 hours): Temp Pulse Resp BP Pulse Ox 97.8 F 76 17 139/90 100 03/12/17 07:00 03/12/17 07:00 03/12/17 07:00 03/12/17 09:24 03/12/17 07:00 Intake and Output: 03/12/17 03/12/17 06:59 18:59 Intake Total 0 Balance 0 - Medications Medications: Current Medications Aspirin (Aspirin Chewable) 81 mg PO DAILY [facility] Last Admin: 03/12/17 09:24 Dose: 81 mg Famotidine (Pepcid) 20 mg PO BID [facility] Last Admin: 03/12/17 09:24 Dose: 20 mg Furosemide (Lasix) 40 mg IVP Q12 [facility] Last Admin: 03/12/17 09:24 Dose: 40 mg Insulin Human Regular (Novolin R) 0 unit SC ACHS [facility] PRN Reason: Protocol Last Admin: 03/12/17 07:58 Dose: Not Given Lisinopril (Zestril) 10 mg PO DAILY [facility] Last Admin: 03/12/17 09:24 Dose: 10 mg Metoprolol Tartrate (Lopressor) 50 mg PO Q12 [facility] Last Admin: 03/12/17 09:24 Dose: 50 mg Rosuvastatin Calcium (Crestor) 20 mg PO HS [facility] Last Admin: 03/11/17 23:03 Dose: 20 mg - Labs Labs: 03/12/17 06:37 03/12/17 06:37 - Constitutional Appears: Well, No Acute Distress - Head Exam Head Exam: ATRAUMATIC, NORMAL INSPECTION, NORMOCEPHALIC - ENT Exam ENT Exam: Mucous Membranes Moist - Respiratory Exam Respiratory Exam: Clear to Ausculation Bilateral, NORMAL BREATHING PATTERN - Cardiovascular Exam Cardiovascular Exam: RRR, +S1, +S2 - GI/Abdominal Exam GI & Abdominal Exam: Soft, Normal Bowel Sounds. absent: Tenderness - Extremities Exam Extremities Exam: absent: Calf Tenderness, Pedal Edema - Neurological Exam Neurological Exam: Alert, Awake, Oriented x3 - Skin Skin Exam: Intact, Normal Color, Warm Assessment and Plan (1) ICD (implantable cardioverter-defibrillator), biventricular, in situ Assessment & Plan: Pt will be transferred to [place] for ICD lead placement later today Pt will be transferred back to [facility] after completion of procedure Status: Acute
--- NOTE | 2017-03-12 22:20 | CP.PCM.DIS ---
Provider - Provider Date of Admission: 03/09/17 14:26 Attending physician: Varsha Beth DO Time Spent in preparation of Discharge (in minutes): 45 Diagnosis - Discharge Diagnosis (1) Acute exacerbation of congestive heart failure Status: Acute Priority: High (2) Shortness of breath Status: Acute (3) ICD (implantable cardioverter-defibrillator), biventricular, in situ Status: Acute Hospital Course - Lab Results Lab Results: Most Recent Lab Values WBC 7.4 K/uL (4.8-10.8) 03/12/17 06:37 RBC 4.53 Mil/uL (4.40-5.90) 03/12/17 06:37 Hgb 13.2 g/dL (12.0-18.0) 03/12/17 06:37 Hct 40.0 % (35.0-51.0) 03/12/17 06:37 MCV 88.3 fL (80.0-94.0) 03/12/17 06:37 MCH 29.2 pg (27.0-31.0) 03/12/17 06:37 MCHC 33.1 g/dL (33.0-37.0) 03/12/17 06:37 RDW 14.6 % (11.5-14.5) H 03/12/17 06:37 Plt Count 191 K/uL (130-400) 03/12/17 06:37 MPV 10.3 fL (7.2-11.7) 03/12/17 06:37 Neut % (Auto) 61.1 % (50.0-75.0) 03/12/17 06:37 Lymph % (Auto) 26.3 % (20.0-40.0) 03/12/17 06:37 [place] % (Auto) 10.3 % (0.0-10.0) H 03/12/17 06:37 Eos % (Auto) 1.6 % (0.0-4.0) 03/12/17 06:37 Baso % (Auto) 0.7 % (0.0-2.0) 03/12/17 06:37 Neut # 4.5 K/uL (1.8-7.0) 03/12/17 06:37 Lymph # 1.9 K/uL (1.0-4.3) 03/12/17 06:37 Bureau # 0.8 K/uL (0.0-0.8) 03/12/17 06:37 Eos # 0.1 K/uL (0.0-0.7) 03/12/17 06:37 Baso # 0.1 K/uL (0.0-0.2) 03/12/17 06:37 Sodium 135 mmol/L (132-148) 03/12/17 06:37 Potassium 3.8 mmol/L (3.6-5.2) 03/12/17 06:37 Chloride 97 mmol/L (98-107) L 03/12/17 06:37 Carbon Dioxide 29 mmol/L (22-30) 03/12/17 06:37 Anion Gap 13 (10-20) 03/12/17 06:37 BUN 29 mg/dL (9-20) H 03/12/17 06:37 Creatinine 1.0 MG/DL (0.8-1.5) 03/12/17 06:37 Est GFR ( Amer) > 60 03/12/17 06:37 Est GFR (Non-Af Amer) > 60 03/12/17 06:37 POC Glucose (mg/dL) 117 mg/dL (65-110) H 03/12/17 06:58 Random Glucose 112 mg/dL (75-110) H 03/12/17 06:37 Hemoglobin A1c 7.5 % (4.2-6.5) H 03/09/17 13:35 Calcium 9.2 mg/dl (8.6-10.4) 03/12/17 06:37 Phosphorus 3.6 mg/dL (2.5-4.5) 03/12/17 06:37 Magnesium 1.7 mg/dL (1.6-2.3) 03/12/17 06:37 Total Bilirubin 1.1 mg/dL (0.2-1.3) 03/12/17 06:37 AST 22 U/L (17-59) 03/12/17 06:37 ALT 23 U/L (21-72) 03/12/17 06:37 Alkaline Phosphatase 81 U/L (38-126) 03/12/17 06:37 Total Creatine Kinase 26 U/L (55-170) L 03/10/17 01:50 CK-MB (Mass) 0.54 ng/mL (0.0-3.38) 03/10/17 01:50 Troponin I < 0.0120 ng/mL (0.00-0.120) 03/09/17 13:35 Troponin I, Quant < 0.0120 ng/mL (0.00-0.120) 03/10/17 01:50 NT-Pro-B Natriuret Pep 8640 pg/mL (0-900) H 03/09/17 13:35 Total Protein 7.1 g/dL (6.3-8.3) 03/12/17 06:37 Albumin 3.7 g/dL (3.5-5.0) 03/12/17 06:37 Globulin 3.5 gm/dL (2.2-3.9) 03/12/17 06:37 Albumin/Globulin Ratio 1.1 (1.0-2.1) 03/12/17 06:37 Urine Color Straw (YELLOW) 03/09/17 14:38 Urine Clarity Clear (Clear) 03/09/17 14:38 Urine pH 7.0 (5.0-8.0) 03/09/17 14:38 Ur Specific [place] 1.005 (1.003-1.030) 03/09/17 14:38 Urine Protein Negative mg/dL (NEGATIVE) 03/09/17 14:38 Urine Glucose (UA) Normal mg/dL (Normal) 03/09/17 14:38 Urine Ketones Negative mg/dL (NEGATIVE) 03/09/17 14:38 Urine Blood Negative (NEGATIVE) 03/09/17 14:38 Urine Nitrate Negative (NEGATIVE) 03/09/17 14:38 Urine Bilirubin Negative (NEGATIVE) 03/09/17 14:38 Urine Urobilinogen Normal mg/dL (0.2-1.0) 03/09/17 14:38 Ur Leukocyte Esterase Neg [place]/uL (Negative) 03/09/17 14:38 Urine WBC (Auto) 1 /hpf (0-5) 03/09/17 14:38 Urine RBC (Auto) 1 /hpf (0-3) 03/09/17 14:38 Hyaline Casts 0-2 /lpf (0-2) 03/09/17 14:38 - Hospital Course Hospital Course: As per admission: HPI: 61 year old male with past medical history of CHF, hyperlipidemia, coronary artery disease, hypternsion, diabetes mellitus, presents to the ED with shortness of breath for 1 week. The patient is accompanied by his and daughter who contribute to the history. He reports his shortness of breath is getting worse, and is worse with activity and laying down. He reports nothing makes his symptoms better. The patient was recently discharged from [facility] on 02/21/17 for shortness of breath, cough, and chest pain. His reports that even during discharge from the hospital, her still felt short of breath. As per the , since discharge, his symptoms have progressed. Currently, the patient feel weak, leg swelling, palpitations with active or without oxygen. He denies chest pain, abdominal pain, fevers, chills, headache, dizziness, nausea and vomiting. Hospital Course: 61 year old male with past medical history of CHF, hyperlipidemia, coronary artery disease, hypternsion, diabetes mellitus, presents to the ED with shortness of breath for 1 week. Subsequently, a chest-xray was administered, which showed cardiomegaly, + mild to moderate CHF and patient was medically managed. Dr. [place], a group segment consultant was consulted, who Pt will be transferred to [place] for implantation of left lateral lead of biventricular ICD Discharge Exam - Head Exam Head Exam: ATRAUMATIC, NORMAL INSPECTION, NORMOCEPHALIC Discharge Plan - Follow Up Plan Condition: FAIR Disposition: HOME/ ROUTINE Instructions: Heart Failure (DC), Heart Failure (GEN), Pacemaker (DC), Pacemaker (GEN), Pulmonary Edema (DC), Pulmonary Edema (GEN), Ascites (DC), Ascites (GEN)
--- NOTE | 2017-03-12 22:26 | CP.PCM.PN ---
Subjective - Date & Time of Evaluation Date of Evaluation: 03/12/17 Time of Evaluation: 09:10 - Subjective Subjective: Medicine Note (PGY1): Dr. Earl's service Patient was seen and examined at bedside. Patient had no acute issues overnight. Patient still continues to report dyspnea on exertion but denies chest pain, abd pain, diarrhea, dizziness, palpitation. Patient is will be going to [place] for pacemaker adjustment. Objective - Vital Signs/Intake and Output Vital Signs (last 24 hours): Temp Pulse Resp BP Pulse Ox 97.8 F 76 17 139/90 100 03/12/17 07:00 03/12/17 07:00 03/12/17 07:00 03/12/17 09:24 03/12/17 07:00 - Medications Medications: Current Medications Aspirin (Aspirin Chewable) 81 mg PO DAILY [facility] Last Admin: 03/12/17 09:24 Dose: 81 mg Famotidine (Pepcid) 20 mg PO BID [facility] Last Admin: 03/12/17 09:24 Dose: 20 mg Furosemide (Lasix) 40 mg IVP Q12 [facility] Last Admin: 03/12/17 09:24 Dose: 40 mg Insulin Human Regular (Novolin R) 0 unit SC ACHS [facility] PRN Reason: Protocol Last Admin: 03/12/17 12:12 Dose: Not Given Lisinopril (Zestril) 10 mg PO DAILY [facility] Last Admin: 03/12/17 09:24 Dose: 10 mg Metoprolol Tartrate (Lopressor) 50 mg PO Q12 [facility] Last Admin: 03/12/17 09:24 Dose: 50 mg Rosuvastatin Calcium (Crestor) 20 mg PO HS [facility] Last Admin: 03/11/17 23:03 Dose: 20 mg - Labs Labs: 03/12/17 06:37 03/12/17 06:37 - Constitutional Appears: Well, No Acute Distress - Head Exam Head Exam: NORMAL INSPECTION, NORMOCEPHALIC - Eye Exam Eye Exam: EOMI, Normal appearance - ENT Exam ENT Exam: Mucous Membranes Moist, Normal Exam - Respiratory Exam Respiratory Exam: Clear to Ausculation Bilateral, NORMAL BREATHING PATTERN - Cardiovascular Exam Cardiovascular Exam: REGULAR RHYTHM, +S1, +S2 - GI/Abdominal Exam GI & Abdominal Exam: Soft, Normal Bowel Sounds - Extremities Exam Extremities Exam: Normal Capillary Refill, Normal Inspection - Neurological Exam Neurological Exam: Alert, Awake, Oriented x3 - Psychiatric Exam Psychiatric exam: Normal Affect, Normal Mood - Skin Skin Exam: Dry, Normal Color, Warm Assessment and Plan (1) Acute CHF (congestive heart failure) Assessment & Plan: EKG- no changes from previous EKG Troponin x2 negative Echo (11/2016): EJ 20% Chest xray- cardiomegaly, + mild to moderate CHF Lasix 20mg IV Q12 ----> adjusted to 40mg IV q12h 03/11/17 (Home medication Lasix 40mg PO daily) Cardiology consult- Dr [place] Daily weights Input & outputs Continue home medication: ASA 81mg daily, simvastatin 80mg daily, lisinopril 5mg daily, metoprolol 50mg daily Restrict fluids Defibrillator wire malfunctioning Pacemaker (11/2016)- HOLD Lovenox (03/10/17) for pacemaker adjustment on Saturday03/12/17 at [place] and patient will return tomorrow after procedure as per Cardio's note. Status: Acute (2) History of coronary artery disease Assessment & Plan: No acute chest pain Continue home meds Status: Acute (3) Hyperlipidemia Assessment & Plan: simvastatin 80mg (home medication) Status: Acute (4) Diabetes Assessment & Plan: f/u HgbA1c Accuchecks QACHS HOme meds: glipizide 10mg daily, metformin 500mg BID ISS (low) Status: Chronic (5) HTN (hypertension) Assessment & Plan: Metoprolol 50mg daily Lisinopril 5mg daily Monitor Status: Chronic (6) Prophylactic measure Assessment & Plan: SCDs Pepcid 20mg PO BID Heart Healthy Diet, 2Na ASA 81mg PO daily PT/OT Activity ordered as tolerated Lovenox 40subQ once daily- HOLD; scheduled for pacemaker adjustment on 03/12/17 Status: Acute
== END 2017-03-12 11:59 | disposition designated cancer center or children's hospital (05) | DRG 127 ==
LOC: C.ER 12:57 → C.9E 14:26 → C.6T 14:52
PROVIDERS: ADMIT Hospitalist; ATTEND Hospitalist
DX: I11.0 Hypertensive heart disease with heart failure (principal); I42.9 Cardiomyopathy, unspecified; I73.9 Peripheral vascular disease, unspecified; I37.1 Nonrheumatic pulmonary valve insufficiency; E11.9 Type 2 diabetes mellitus without complications; I50.23 Acute on chronic systolic (congestive) heart failure; I25.10 Atherosclerotic heart disease of native coronary artery without angina pectoris; E78.5 Hyperlipidemia, unspecified; Z83.3 Family history of diabetes mellitus; Z82.49 Family history of ischemic heart disease and other diseases of the circulatory system; Z82.3 Family history of stroke; Z87.891 Personal history of nicotine dependence; Z95.0 Presence of cardiac pacemaker